=== PATIENT | male | born 1960 | race African-American/Black ===

== ENCOUNTER 2016-09-25 10:05 | Emergency (ER) | payer SELFPAY ==
[2016-09-25 10:10] VITALS: BP 189/107; BMI 29.9
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
[2016-09-25] MEDS ORDERED: TORADOL 60 MG VIAL IM ONE (10:37)
[2016-09-25] MEDS ORDERED: TORADOL 60 MG VIAL ONE (10:51)
== END 2016-09-25 11:00 | disposition home or self-care (01) ==
LOC: ER 10:18
DX: Z04.3 Encounter for examination and observation following other accident (principal); M79.1 Myalgia; V89.2XXA Person injured in unspecified motor-vehicle accident, traffic, initial encounter
CPT/HCPCS: 99281; 99282; J1885

== ENCOUNTER 2017-02-20 08:41 | Emergency (ER) | payer SELFPAY ==
[2017-02-20 08:46] VITALS: BP 160/93; BMI 29.9
--- NOTE | 2017-02-20 09:53 | DR.GENAD ---
HPI - PCP Primary Care Physician: NFD - Complaint/Symptoms Chief Complaint Doctors Comments: Patient reports that he got a foreign body in his left thumb three weeks ago now there is a tender growth at the site. Chief Complaint:: PT. STATES HE WAS MOPPING AND GOT A PIECE OF FIBERGLASS IN HIS LEFT THUMB AND HE SAYS HE THOUGHT HE GOT MOST OF IT OUT. PAIN AND SWELLING NOTED TO LEFT THUMB. - Source History Provided: Patient - Mode of Arrival Mode of Arrival: Ambulatory - Timing Onset of Chief Complaint: 02/19/17 PMH - PMH Past Medical History: Yes Past Medical History: Hypertension Past Medical History Comment: HIV Past Surgical History: No Surgical History: No History - Family History History of Family Medical Conditions: No - Social History Does patient currently use any type of tobacco product: Yes Have you used tobacco products in the last 12 months: Yes Type of Tobacco Use: Cigarettes Does any household member use tobacco: No Alcohol Use: Occasionally Do you use any recreational Drugs:: No Lives With: Alone Lives Where: Home - infectious screening In the last 2 months have you had wt loss of >10#?: NO Have you had fever, night sweats or hemotysis?: No Have you traveled outside the country in the last 6 months?: No Isolation: Standard ROS - Review of Systems Eyes: No Symptoms Reported ENTM: No Symptoms Reported Respiratoy: No Symptoms Reported Cardiovascular: No Symptoms Reported Gastrointestinal/Abdominal: No Symptoms Reported Genitourinary: No Symptoms Reported Neurological: No Symptoms Reported Musculoskeletal: No Symptoms Reported Integumentary: Lesions (left thumb) Hematologic/Lymphatic: No Symptoms Reported Endocrine: No Symptoms Reported Psychiatric: No Symptoms Reported All Other Systems: Reviewed and Negative PE - Vital Signs Vitals: Temperature 98.4 F Pulse Rate 64 Respiratory Rate 16 Blood Pressure 160/93 O2 Sat by Pulse Oximetry 97 - General Limitations: No Limitations - Head Head Exam: Normal Inspection, Atraumatic - Eyes Eye exam: Normal Appearance, PERRL, EOMI - ENT ENT Exam: Normal Exam External Ear Exam: Normal External Inspection TM/Canal Exam: Bilateral Normal Nose Exam: Normal Nose Exam Mouth Exam: Normal Inspection Throat Exam: Tonsillar Erythema - Neck Neck Exam: Normal Inspection, Full ROM - Chest Chest Inspection: Normal Inspection - Respiratory Respiratory Exam: Normal Lung Sounds Bilat Respiratory Exam: Bilateral Clear to Auscultation - Cardiovascular Cardiovascular Exam: Regular Rate - Abdominal Exam Abdominal Exam: Normal Inspection - Extremities Extremities Exam: Normal Inspection, Full ROM, Other (left thumb with granuloma formation) - Back Back Exam: Normal Inspection, Full ROM - Neurologic Neurological Exam: Alert, Oriented X3, CN II-XII Intact - Psychiatric Psychiatric Exam: Normal Affect, Normal Mood - Skin Skin Exam: Warm, Dry Course - Reevaluation 1st: Unchanged - Education/Counseling Education/Counseling: Patient Educated On: Treatment, Prognosis Procedures - Incision and Drainage Site: I&D granuloma w/o expressin of exudate - Diagnosis Discharge Problem: Granuloma due to infection - Discharge Plan Condition: Stable - Follow ups/Referrals Follow ups/Referrals: NFD,None [Primary Care Provider] - 3 days - Instructions
== END 2017-02-20 10:37 | disposition home or self-care (01) ==
LOC: ER 08:53
DX: B99.9 Unspecified infectious disease (principal)
CPT/HCPCS: 99282

== ENCOUNTER → 2017-06-30 | Outpatient (CLI) | payer OTHER ==
--- NOTE | 2017-06-30 11:53 | RAD ---
HISTORY: Low back pain Study: Lumbar spine Comparison: None Findings: Images demonstrate 5 wdy-rbk-yvyapyc lumbar vertebral bodies. Allowing for endplate degenerative gómez ges the lumbar vertebral body heights are relatively maintained. Mild degenerate facet changes are se en within the mid to lower lumbar spine. Mild multilevel osteophytosis is also noted. Portions of the spine are obscured by overlying bowel content. Atherosclerotic changes are seen within the visualize d aorta. If symptoms or clinical concern persist correlation with MRI may be helpful. IMPRESSION: 1. Degenerative changes as noted above. Reported By:
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
== END ==
LOC: RAD 09:27
PROVIDERS: ATTEND Internal Medicine
DX: Z02.71 Encounter for disability determination (principal)
CPT/HCPCS: 72040; 72100

== ENCOUNTER 2021-09-05 08:33 | Observation (INO) ==
[2021-09-05 16:05] VITALS: BMI 25.4
[2021-09-05] MEDS ORDERED: PHENOBARBITAL SODIUM INJ 65 MG VIAL IM PRN (16:31)
[2021-09-05] MEDS ORDERED: MAALOX or MYLANTA PO PRN (16:31)
[2021-09-05] MEDS ORDERED: MILK OF MAGNESIA PO PRN (16:31)
[2021-09-05] MEDS ORDERED: LIBRIUM PO PRN (16:31)
[2021-09-05] MEDS ORDERED: MOTRIN TAB 800 MG PO PRN (16:31)
[2021-09-05] MEDS ORDERED: KAOPECTATE (NEW FORMULA) PO PRN (16:31)
[2021-09-05] MEDS: MAGNESIUM SULFATE 1 GRAM/100 mL PREMIX 1 G/100 ML BAG IV SCH ×2 (17:06→21:30)
[2021-09-05] MEDS: NS 1,000 ML IV 1,000 ML with MVI INJ (ADULT) 10 ML IV SCH ×4 (17:07→23:49)
[2021-09-05] MEDS: THIAMINE HCL INJ IM SCH (17:07)
[2021-09-05] MEDS: PHENOBARBITAL TAB 30 MG (32.4MG) PO SCH ×3 (17:07→21:30)
[2021-09-05 17:13] LABS: BASOPHILS % (AUTO) 0.9 % (0.2-1.0); EOSINOPHILS % (AUTO) 0.6 % (0.9-2.9); HEMATOCRIT 29.7 % (42.0-54.0); HEMOGLOBIN 9.9 g/dL (13.5-18.0); LYMPHOCYTES # (AUTO) 1.9 X10^3/uL (1.3-2.9); LYMPHOCYTES % (AUTO) 44.6 % (21.0-51.0); MEAN CORPUSCULAR HEMOGLOBIN 30.7 pg (27.0-34.0); MEAN CORPUSCULAR HGB CONC 33.2 g/dL (33.0-35.0); MEAN CORPUSCULAR VOLUME 92.5 fL (80.0-100.0); MEAN PLATELET VOLUME 9.3 fL (7.4-11.0); MONOCYTES # (AUTO) 0.6 x10^3/uL (0.3-0.8); MONOCYTES % (AUTO) 14.3 % (0.0-13.0); NEUTROPHILS # (AUTO) 1.7 x10^3/uL (2.2-4.8); NEUTROPHILS % (AUTO) 39.6 % (42.0-75.0); RED BLOOD COUNT 3.21 X10^6/uL (4.7-6.0); RED CELL DISTRIBUTION WIDTH 15.5 % (11.6-16.5); WHITE BLOOD COUNT 4.3 X10^3/uL (3.6-10.0)
[2021-09-05 17:53] LABS: BILIRUBIN,URINE NEGATIVE (NEGATIVE); BLOOD/HEMOGLOBIN,URINE NEGATIVE (NEGATIVE); GLUCOSE, URINE NEGATIVE (NEGATIVE); KETONES,URINE NEGATIVE (NEGATIVE); LEUKOCYTE ESTERASE ,URINE NEGATIVE (NEGATIVE); NITRITES,URINE NEGATIVE (NEGATIVE); PROTEIN,URINE 1+ (NEGATIVE); UROBILINOGEN,URINE 1+ (NORMAL)
[2021-09-05 17:55] LABS: ALANINE AMINOTRANSFERASE 45 Units/L (12-78); ALBUMIN 3.1 g/dL (3.4-5.0); ALKALINE PHOSPHATASE 139 Units/L (46-116); ASPARTATE AMINO TRANSFERASE 80 Units/L (15-37); BLOOD UREA NITROGEN 9 mg/dL (7-18); CALCIUM 9.3 mg/dL (8.5-10.1); CARBON DIOXIDE 26.8 mmol/L (21-32); CHLORIDE 106 mmol/L (98-107); COR NA(FOR HYPERGLY) 144 mmol/L (136-145); CREATININE 0.96 mg/dL (0.70-1.30); SODIUM 143 mmol/L (136-145); TOTAL PROTEIN 7.9 g/dL (6.4-8.2); eGFR NON BLACK RACES > 60 (>60)
[2021-09-05 18:06] LABS: APPEARANCE,URINE CLEAR (CLEAR); COLOR,URINE YELLOW (YELLOW)
[2021-09-05 18:07] LABS: BACTERIA,URINE TRACE /HPF (NEGATIVE); RBC,URINE NONE SEEN /HPF (0-3); SQUAMOUS EPITHELIAL CELL,UR RARE /HPF (NEGATIVE)
[2021-09-05] MEDS: AMBIEN PO SCH (21:30)
[2021-09-05] MEDS ORDERED: POTASSIUM CHL 40 MEQ/NS 0.45% 500 ML IV PRN (23:52)
[2021-09-05] MEDS ORDERED: POTASSIUM CHL 60 MEQ/NS 0.45% 500 ML IV PRN (23:52)
[2021-09-05] MEDS ORDERED: K-DUR TAB 20 MEQ PO PRN (23:52)
[2021-09-05] MEDS ORDERED: MICRO K EXTEN CAP 10 MEQ PO PRN (23:52)
[2021-09-05] MEDS ORDERED: POTASSIUM CHLORIDE LIQ 20 MEQ UDC PO PRN (23:52)
[2021-09-06] MEDS: K-RIDER 10 MEQ/NS 100 ML 10 MEQ/100 ML BAG IV PRN ×4 (00:15→03:50)
[2021-09-06 04:49] LABS: BASOPHILS % (AUTO) 0.5 % (0.2-1.0); EOSINOPHILS % (AUTO) 0.6 % (0.9-2.9); HEMATOCRIT 29.6 % (42.0-54.0); HEMOGLOBIN 9.7 g/dL (13.5-18.0); LYMPHOCYTES # (AUTO) 1.8 X10^3/uL (1.3-2.9); LYMPHOCYTES % (AUTO) 32.6 % (21.0-51.0); MEAN CORPUSCULAR HEMOGLOBIN 30.5 pg (27.0-34.0); MEAN CORPUSCULAR HGB CONC 32.7 g/dL (33.0-35.0); MEAN CORPUSCULAR VOLUME 93.2 fL (80.0-100.0); MONOCYTES # (AUTO) 0.6 x10^3/uL (0.3-0.8); MONOCYTES % (AUTO) 10.5 % (0.0-13.0); NEUTROPHILS # (AUTO) 3.2 x10^3/uL (2.2-4.8); NEUTROPHILS % (AUTO) 55.8 % (42.0-75.0); RED BLOOD COUNT 3.18 X10^6/uL (4.7-6.0); RED CELL DISTRIBUTION WIDTH 15.6 % (11.6-16.5); WHITE BLOOD COUNT 5.7 X10^3/uL (3.6-10.0)
[2021-09-06 05:18] LABS: ALANINE AMINOTRANSFERASE 37 Units/L (12-78); ALBUMIN 2.9 g/dL (3.4-5.0); ALKALINE PHOSPHATASE 137 Units/L (46-116); ASPARTATE AMINO TRANSFERASE 71 Units/L (15-37); BLOOD UREA NITROGEN 9 mg/dL (7-18); CALCIUM 8.6 mg/dL (8.5-10.1); CARBON DIOXIDE 24.9 mmol/L (21-32); CHLORIDE 102 mmol/L (98-107); COR CA(FOR HYPOALB) 9.5 mg/dL (8.5-10.1); SODIUM 137 mmol/L (136-145); TOTAL PROTEIN 7.3 g/dL (6.4-8.2); eGFR NON BLACK RACES > 60 (>60)
[2021-09-06] MEDS: NS 1,000 ML IV 1,000 ML with MVI INJ (ADULT) 10 ML IV SCH ×2 (05:23)
[2021-09-06] MEDS: MAGNESIUM SULFATE 1 GRAM/100 mL PREMIX 1 G/100 ML BAG IV SCH ×9 (05:23→23:00)
[2021-09-06] MEDS ORDERED: TOPROL XL PO SCH (09:00)
[2021-09-06] MEDS: THIAMINE HCL INJ IM SCH (09:42)
[2021-09-06] MEDS: NORVASC TAB 10 MG PO SCH (09:43)
[2021-09-06] MEDS: PHENOBARBITAL TAB 30 MG (32.4MG) PO SCH ×4 (09:43→21:57)
[2021-09-06] MEDS: MVI IV SCH ×9 (09:44→21:58)
[2021-09-06] MEDS: NS IV SCH ×9 (09:44→21:58)
[2021-09-06] MEDS: MAGNESIUM SULFATE IV SCH ×9 (09:44→21:58)
[2021-09-06 15:36] LABS: MAGNESIUM 1.6 mg/dL (1.7-2.9)
[2021-09-06] MEDS: KLOR-CON PO PRN ×2 (16:08→22:10)
--- NOTE | 2021-09-06 21:36 | DR.H&P ---
H&P History & Physical for Day of: H&P Date: 09/05/21 Chief Complaint Chief Complaint: Needs alcohol detox Allergies Allergies Allergy/AdvReac Type Severity Reaction Status Date / Time No Known Drug Allergies Allergy Verified 02/20/17 08:45 History of Present Illness History of Present Illness: This is a pleasant 60-year-old black male well-known to me. He recently came to see me last week and his is interested in having him be admitted to the hospital for alcohol detox. Patient was not ready to do that at that time after the weekend he called me and wanted to come in Friday morning to start the detox treatment. He does report having a long history of alcoholism and is unable to stop on his own. He has been out of work for the last few years and reports that he just sits around home drinking alcohol started early in the morning and through the evening and night. He currently does not report any nausea vomiting or shaking. He reports that years before he attended AA and is interested in restarting it after he gets detoxed from alcohol. Past Medical History Past Medical History: Anxiety, Dyslipidemia and Hypertension Additional Medical History: HIV positive, chronic low back pain and anxiety. Past Surgical History Surgical History: No History Social History Does patient currently use any type of tobacco product: No Have you used tobacco products in the last 12 months: No Does any household member use tobacco: No Alcohol Use: DAILY Drug Use: None Medications Home Medications: No Known Drug Allergies Allergy (Verified 02/20/17 08:45) CONTINUE taking the following medications alprazolam 1 mg PO HS 09/05/21 [History] amlodipine 10 mg PO ONCE 09/05/21 [History] atorvastatin 40 mg PO HS 09/05/21 [History] ktarity-ejn-pijkn-tenof alafen [Genvoya] 1 tab PO DAILY 09/05/21 [History] gabapentin 100 mg PO HS 09/05/21 [History] metoprolol succinate 50 mg PO DAILY 09/05/21 [History] multivitamin [Multi-Vitamin] 1 tab PO DAILY 09/05/21 [History] oxycodone 10 mg PO TID PRN 09/05/21 [History] testosterone 1 pump TRANSDERMAL QAM 09/05/21 [History] tizanidine 4 mg PO TID PRN 09/05/21 [History] Labs Result Diagrams: 09/06/21 04:06 09/06/21 18:50 Labs: Laboratory WBC 5.7 X10^3/uL (3.6-10.0) 09/06/21 04:06 RBC 3.18 X10^6/uL (4.7-6.0) L 09/06/21 04:06 Hgb 9.7 g/dL (13.5-18.0) L 09/06/21 04:06 Hct 29.6 % (42.0-54.0) L 09/06/21 04:06 MCV 93.2 fL (80.0-100.0) 09/06/21 04:06 MCH 30.5 pg (27.0-34.0) 09/06/21 04:06 MCHC 32.7 g/dL (33.0-35.0) L 09/06/21 04:06 RDW 15.6 % (11.6-16.5) 09/06/21 04:06 Plt Count 129 X10^3/uL (150.0-450.0) L 09/06/21 04:06 MPV 10.0 fL (7.4-11.0) 09/06/21 04:06 Neut % (Auto) 55.8 % (42.0-75.0) 09/06/21 04:06 Lymph % (Auto) 32.6 % (21.0-51.0) 09/06/21 04:06 [place] % (Auto) 10.5 % (0.0-13.0) 09/06/21 04:06 Eos % (Auto) 0.6 % (0.9-2.9) L 09/06/21 04:06 Baso % (Auto) 0.5 % (0.2-1.0) 09/06/21 04:06 Neut # (Auto) 3.2 x10^3/uL (2.2-4.8) 09/06/21 04:06 Lymph # (Auto) 1.8 X10^3/uL (1.3-2.9) 09/06/21 04:06 [place] # (Auto) 0.6 x10^3/uL (0.3-0.8) 09/06/21 04:06 Eos # (Auto) 0.0 x10^3/uL (0.0-0.2) 09/06/21 04:06 Baso # (Auto) 0.0 X10^3/uL (0.0-0.1) 09/06/21 04:06 Absolute Nucleated RBC 0.6 /100WBC 09/06/21 04:06 Sodium 137 mmol/L (136-145) 09/06/21 04:06 Corrected Sodium TNP 09/06/21 04:06 Potassium 3.7 mmol/L (3.5-5.1) 09/06/21 18:50 Chloride 102 mmol/L (98-107) 09/06/21 04:06 Carbon Dioxide 24.9 mmol/L (21-32) 09/06/21 04:06 BUN 9 mg/dL (7-18) 09/06/21 04:06 Creatinine 0.90 mg/dL (0.70-1.30) 09/06/21 04:06 Est GFR (MDRD) Af Amer > 60 (>60) 09/06/21 04:06 Est GFR (MDRD) Non-Af > 60 (>60) 09/06/21 04:06 Glucose 96 mg/dL (65-99) 09/06/21 04:06 Calcium 8.6 mg/dL (8.5-10.1) 09/06/21 04:06 Corrected Calcium 9.5 mg/dL (8.5-10.1) 09/06/21 04:06 Magnesium 1.6 mg/dL (1.7-2.9) L 09/06/21 15:15 Total Bilirubin 0.40 mg/dL (0.2-1.0) 09/06/21 04:06 AST 71 Units/L (15-37) H 09/06/21 04:06 ALT 37 Units/L (12-78) 09/06/21 04:06 Alkaline Phosphatase 137 Units/L (46-116) H 09/06/21 04:06 Total Protein 7.3 g/dL (6.4-8.2) 09/06/21 04:06 Albumin 2.9 g/dL (3.4-5.0) L 09/06/21 04:06 Globulin 4.4 g/dL (2.5-4.5) 09/06/21 04:06 Albumin/Globulin Ratio 0.7 Ratio (1.1-2.1) L 09/06/21 04:06 Specimen Type Clean catch urine 09/05/21 17:37 Urine Color Yellow (YELLOW) 09/05/21 17:37 Urine Appearance Clear (CLEAR) 09/05/21 17:37 Urine pH 5.0 (5.0 - 8.0) 09/05/21 17:37 Ur Specific [place] 1.015 (1.000-1.030) 09/05/21 17:37 Urine Protein 1+ (NEGATIVE) 09/05/21 17:37 Urine Glucose (UA) Negative (NEGATIVE) 09/05/21 17:37 Urine Ketones Negative (NEGATIVE) 09/05/21 17:37 Urine Blood Negative (NEGATIVE) 09/05/21 17:37 Urine Nitrite Negative (NEGATIVE) 09/05/21 17:37 Urine Bilirubin Negative (NEGATIVE) 09/05/21 17:37 Urine Urobilinogen 1+ (NORMAL) 09/05/21 17:37 Ur Leukocyte Esterase Negative (NEGATIVE) 09/05/21 17:37 Urine RBC None seen /HPF (0-3) 09/05/21 17:37 Urine WBC 0-2 /HPF (0-5) 09/05/21 17:37 Ur Squamous Epith Cells Rare /HPF (NEGATIVE) 09/05/21 17:37 Urine Bacteria Trace /HPF (NEGATIVE) 09/05/21 17:37 Ur Culture Indicated? No/not indicated 09/05/21 17:37 Urine Opiates Screen Negative (NEG=<300) 09/05/21 16:31 Urine Methadone Screen Negative (NEG=<300) 09/05/21 16:31 Ur Barbiturates Screen Negative (NEG=<200) 09/05/21 16:31 Ur Phencyclidine Scrn Negative (NEG=<25) 09/05/21 16:31 Ur Amphetamines Screen Negative (NEG=<1000) 09/05/21 16:31 U Benzodiazepines Scrn Negative (NEG=<200) 09/05/21 16:31 Urine Cocaine Screen Negative (NEG=<300) 09/05/21 16:31 U Marijuana (THC) Screen Negative (NEG=<50) 09/05/21 16:31 Ethyl Alcohol mg/dL 173 mg/dL (0-19.9) H 09/05/21 17:03 Review of Systems Constitutional: No Symptoms Reported Eyes: No Symptoms Reported ENT: No Symptoms Reported Respiratory: No Symptoms Reported Cardiovascular: No Symptoms Reported Gastrointestinal: No Symptoms Reported Genitourinary: No Symptoms Reported Musculoskeletal: Back Pain Skin: No Symptoms Reported Neurological: No Symptoms Reported Physical Exam Vital Signs: Temperature 99.0 F Pulse Rate [Bilateral Radial] 82 Respiratory Rate 18 Blood Pressure [Left Arm] 180/95 Blood Pressure 155/87 O2 Sat by Pulse Oximetry 97 Oriented: Normal, Time, Person and Place Eyes: Normal Ear: Normal Nose: Normal Throat: Normal Respiratory: Clear Throughout Cardiovascular: Normal : Normal Auscultation: Bowel Sounds: Normal Palpation: Normal Tenderness: Normal Skin: Normal Musculoskeletal: Normal Psychiatric: Depression Mood Description: Depressed and Sad Affect: Quiet Speech Pattern: Clear and Appropriate Assessment/Plan (1) Alcohol use disorder: Status: Acute Plan: I will use the alcohol detox protocol. Check CMP and CBC and magnesium as well. (2) Hypertension: Status: Acute Plan: Resume his metoprolol ER 50 mg daily and monitor blood pressure daily. (3) HIV positive: Status: Acute Review H&P Reviewed: Yes Patient was examined?: Yes
--- NOTE | 2021-09-06 21:38 | PCM.PROG ---
Progress Note Progress Note for Day of Date of Exam: 09/06/21 Subjective Subjective: The patient is lying in bed this morning. He seems to be doing fairly well. He had no problems overnight. He denies nausea or vomiting at this time but it has been noted since yesterday after his labs came back he has been profoundly hypokalemic and hypomagnesemic. He has been getting potassium and magnesium replacement per protocol. He has no new complaints at this time. Blood pressure is also noted to be elevated. Past Medical Family Social History Past Med/Fam/Surg Hx: No changes since H&P Allergies: Allergies No Known Drug Allergies Allergy (Verified 02/20/17 08:45) Review of Systems ROS: No change since H&P Vital Signs and I&O's Vital Signs: Temperature 99.0 F Pulse Rate [Bilateral Radial] 82 Respiratory Rate 18 Blood Pressure [Left Arm] 180/95 Blood Pressure 155/87 O2 Sat by Pulse Oximetry 97 Intake and Output: Intake & Output 09/04/21 09/05/21 09/06/21 09/07/21 11:59 11:59 11:59 11:59 Intake Total 2780 / 2780 840 / 840 Output Total 1000 / 1000 2400 / 2400 Balance 1780 / 1780 -1560 / -1560 Physical Exam Oriented: Normal, Time, Person and Place Eyes: Normal Ear: Normal Nose: Normal Throat: Normal Respiratory: Normal Cardiovascular: Normal : Normal Auscultation: Bowel Sounds: Normal Tenderness: Normal Skin: Normal Musculoskeletal: Normal Psychiatric: Depression Mood Description: Depressed and Sad Affect: Quiet Speech Pattern: Clear and Appropriate Laboratory and Diagnostics Result Diagrams: 09/06/21 04:06 09/06/21 18:50 Labs: Laboratory WBC 5.7 X10^3/uL (3.6-10.0) 09/06/21 04:06 RBC 3.18 X10^6/uL (4.7-6.0) L 09/06/21 04:06 Hgb 9.7 g/dL (13.5-18.0) L 09/06/21 04:06 Hct 29.6 % (42.0-54.0) L 09/06/21 04:06 MCV 93.2 fL (80.0-100.0) 09/06/21 04:06 MCH 30.5 pg (27.0-34.0) 09/06/21 04:06 MCHC 32.7 g/dL (33.0-35.0) L 09/06/21 04:06 RDW 15.6 % (11.6-16.5) 09/06/21 04:06 Plt Count 129 X10^3/uL (150.0-450.0) L 09/06/21 04:06 MPV 10.0 fL (7.4-11.0) 09/06/21 04:06 Neut % (Auto) 55.8 % (42.0-75.0) 09/06/21 04:06 Lymph % (Auto) 32.6 % (21.0-51.0) 09/06/21 04:06 [place] % (Auto) 10.5 % (0.0-13.0) 09/06/21 04:06 Eos % (Auto) 0.6 % (0.9-2.9) L 09/06/21 04:06 Baso % (Auto) 0.5 % (0.2-1.0) 09/06/21 04:06 Neut # (Auto) 3.2 x10^3/uL (2.2-4.8) 09/06/21 04:06 Lymph # (Auto) 1.8 X10^3/uL (1.3-2.9) 09/06/21 04:06 [place] # (Auto) 0.6 x10^3/uL (0.3-0.8) 09/06/21 04:06 Eos # (Auto) 0.0 x10^3/uL (0.0-0.2) 09/06/21 04:06 Baso # (Auto) 0.0 X10^3/uL (0.0-0.1) 09/06/21 04:06 Absolute Nucleated RBC 0.6 /100WBC 09/06/21 04:06 Sodium 137 mmol/L (136-145) 09/06/21 04:06 Corrected Sodium TNP 09/06/21 04:06 Potassium 3.7 mmol/L (3.5-5.1) 09/06/21 18:50 Chloride 102 mmol/L (98-107) 09/06/21 04:06 Carbon Dioxide 24.9 mmol/L (21-32) 09/06/21 04:06 BUN 9 mg/dL (7-18) 09/06/21 04:06 Creatinine 0.90 mg/dL (0.70-1.30) 09/06/21 04:06 Est GFR (MDRD) Af Amer > 60 (>60) 09/06/21 04:06 Est GFR (MDRD) Non-Af > 60 (>60) 09/06/21 04:06 Glucose 96 mg/dL (65-99) 09/06/21 04:06 Calcium 8.6 mg/dL (8.5-10.1) 09/06/21 04:06 Corrected Calcium 9.5 mg/dL (8.5-10.1) 09/06/21 04:06 Magnesium 1.6 mg/dL (1.7-2.9) L 09/06/21 15:15 Total Bilirubin 0.40 mg/dL (0.2-1.0) 09/06/21 04:06 AST 71 Units/L (15-37) H 09/06/21 04:06 ALT 37 Units/L (12-78) 09/06/21 04:06 Alkaline Phosphatase 137 Units/L (46-116) H 09/06/21 04:06 Total Protein 7.3 g/dL (6.4-8.2) 09/06/21 04:06 Albumin 2.9 g/dL (3.4-5.0) L 09/06/21 04:06 Globulin 4.4 g/dL (2.5-4.5) 09/06/21 04:06 Albumin/Globulin Ratio 0.7 Ratio (1.1-2.1) L 09/06/21 04:06 Specimen Type Clean catch urine 09/05/21 17:37 Urine Color Yellow (YELLOW) 09/05/21 17:37 Urine Appearance Clear (CLEAR) 09/05/21 17:37 Urine pH 5.0 (5.0 - 8.0) 09/05/21 17:37 Ur Specific [place] 1.015 (1.000-1.030) 09/05/21 17:37 Urine Protein 1+ (NEGATIVE) 09/05/21 17:37 Urine Glucose (UA) Negative (NEGATIVE) 09/05/21 17:37 Urine Ketones Negative (NEGATIVE) 09/05/21 17:37 Urine Blood Negative (NEGATIVE) 09/05/21 17:37 Urine Nitrite Negative (NEGATIVE) 09/05/21 17:37 Urine Bilirubin Negative (NEGATIVE) 09/05/21 17:37 Urine Urobilinogen 1+ (NORMAL) 09/05/21 17:37 Ur Leukocyte Esterase Negative (NEGATIVE) 09/05/21 17:37 Urine RBC None seen /HPF (0-3) 09/05/21 17:37 Urine WBC 0-2 /HPF (0-5) 09/05/21 17:37 Ur Squamous Epith Cells Rare /HPF (NEGATIVE) 09/05/21 17:37 Urine Bacteria Trace /HPF (NEGATIVE) 09/05/21 17:37 Ur Culture Indicated? No/not indicated 09/05/21 17:37 Urine Opiates Screen Negative (NEG=<300) 09/05/21 16:31 Urine Methadone Screen Negative (NEG=<300) 09/05/21 16:31 Ur Barbiturates Screen Negative (NEG=<200) 09/05/21 16:31 Ur Phencyclidine Scrn Negative (NEG=<25) 09/05/21 16:31 Ur Amphetamines Screen Negative (NEG=<1000) 09/05/21 16:31 U Benzodiazepines Scrn Negative (NEG=<200) 09/05/21 16:31 Urine Cocaine Screen Negative (NEG=<300) 09/05/21 16:31 U Marijuana (THC) Screen Negative (NEG=<50) 09/05/21 16:31 Ethyl Alcohol mg/dL 173 mg/dL (0-19.9) H 09/05/21 17:03 Plan (1) Alcohol use disorder: Status: Acute Plan: I will use the alcohol detox protocol. Check CMP and CBC and magnesium as well. (2) Hypertension: Status: Acute Plan: Resume his metoprolol ER 50 mg daily and monitor blood pressure daily. I am going to restart his amlodipine 10 mg daily today as well. (3) HIV positive: Status: Acute (4) Hypokalemia: Status: Acute Plan: Replaced with potassium replacement protocol. (5) Hypomagnesemia: Status: Acute Plan: Mag sulfate 2 g IV every 2 hours today.
[2021-09-06] MEDS: AMBIEN PO SCH (21:57)
[2021-09-06] MEDS ORDERED: CATAPRES-TTS-2 TD SCH (22:00)
[2021-09-07] MEDS: MAGNESIUM SULFATE 1 GRAM/100 mL PREMIX 1 G/100 ML BAG IV SCH (02:18)
[2021-09-07 05:06] LABS: BASOPHILS % (AUTO) 0.7 % (0.2-1.0); EOSINOPHILS % (AUTO) 0.9 % (0.9-2.9); HEMATOCRIT 31.6 % (42.0-54.0); HEMOGLOBIN 10.5 g/dL (13.5-18.0); LYMPHOCYTES # (AUTO) 1.3 X10^3/uL (1.3-2.9); LYMPHOCYTES % (AUTO) 27.7 % (21.0-51.0); MEAN CORPUSCULAR HEMOGLOBIN 30.9 pg (27.0-34.0); MEAN CORPUSCULAR HGB CONC 33.3 g/dL (33.0-35.0); MEAN CORPUSCULAR VOLUME 92.7 fL (80.0-100.0); MEAN PLATELET VOLUME 9.5 fL (7.4-11.0); MONOCYTES # (AUTO) 0.4 x10^3/uL (0.3-0.8); MONOCYTES % (AUTO) 9.3 % (0.0-13.0); NEUTROPHILS # (AUTO) 2.9 x10^3/uL (2.2-4.8); NEUTROPHILS % (AUTO) 61.4 % (42.0-75.0); RED BLOOD COUNT 3.41 X10^6/uL (4.7-6.0); RED CELL DISTRIBUTION WIDTH 15.1 % (11.6-16.5); WHITE BLOOD COUNT 4.7 X10^3/uL (3.6-10.0)
[2021-09-07] MEDS: NS IV SCH ×19 (05:24→21:09)
[2021-09-07] MEDS: MAGNESIUM SULFATE IV SCH ×3 (05:24)
[2021-09-07] MEDS: MVI IV SCH ×19 (05:24→21:09)
[2021-09-07 05:34] LABS: ALANINE AMINOTRANSFERASE 38 Units/L (12-78); ALBUMIN 3.3 g/dL (3.4-5.0); ALKALINE PHOSPHATASE 127 Units/L (46-116); ASPARTATE AMINO TRANSFERASE 65 Units/L (15-37); BLOOD UREA NITROGEN 6 mg/dL (7-18); CALCIUM 8.5 mg/dL (8.5-10.1); CARBON DIOXIDE 24.1 mmol/L (21-32); CHLORIDE 103 mmol/L (98-107); COR CA(FOR HYPOALB) 9.1 mg/dL (8.5-10.1); CREATININE 0.78 mg/dL (0.70-1.30); MAGNESIUM 1.8 mg/dL (1.7-2.9); SODIUM 138 mmol/L (136-145); TOTAL PROTEIN 8.1 g/dL (6.4-8.2); eGFR NON BLACK RACES > 60 (>60)
[2021-09-07] MEDS: [UNRECOGNIZED DRUG - OTHER] IV SCH ×16 (08:25→21:09)
[2021-09-07] MEDS: PHENOBARBITAL TAB 30 MG (32.4MG) PO SCH ×4 (08:26→21:08)
[2021-09-07] MEDS: NORVASC TAB 10 MG PO SCH (08:26)
[2021-09-07] MEDS: THIAMINE HCL INJ IM SCH (08:27)
[2021-09-07] MEDS: TOPROL XL PO SCH (08:28)
[2021-09-07] MEDS: MAG-OX TAB PO SCH (17:33)
--- NOTE | 2021-09-07 19:59 | PCM.PROG ---
Progress Note Progress Note for Day of Date of Exam: 09/07/21 Subjective Subjective: The patient reports he is doing well this morning. He is still not having any episodes of nausea or vomiting at this time. No acute episodes of detox seen either. He has no new complaints this morning as well. Past Medical Family Social History Past Med/Fam/Surg Hx: No changes since H&P Allergies: Allergies No Known Drug Allergies Allergy (Verified 02/20/17 08:45) Review of Systems ROS: No change since H&P Vital Signs and I&O's Vital Signs: Temperature 97.8 F Pulse Rate [Bilateral Radial] 78 Respiratory Rate 20 Blood Pressure [Left Arm] 114/82 Blood Pressure 155/87 O2 Sat by Pulse Oximetry 98 Intake and Output: Intake & Output 09/05/21 09/06/21 09/07/21 09/08/21 11:59 11:59 11:59 11:59 Intake Total 2780 / 2780 1340 / 1340 490 / 490 Output Total 1000 / 1000 4300 / 4300 700 / 700 Balance 1780 / 1780 -2960 / -2960 -210 / -210 Physical Exam Oriented: Normal, Time, Person and Place Eyes: Normal Ear: Normal Nose: Normal Throat: Normal Respiratory: Normal Cardiovascular: Normal : Normal Auscultation: Bowel Sounds: Normal Tenderness: Normal Skin: Normal Musculoskeletal: Normal Psychiatric: Depression Mood Description: Depressed and Sad Affect: Quiet Speech Pattern: Clear and Appropriate Laboratory and Diagnostics Result Diagrams: 09/07/21 04:30 09/07/21 04:30 Labs: Laboratory WBC 4.7 X10^3/uL (3.6-10.0) 09/07/21 04:30 RBC 3.41 X10^6/uL (4.7-6.0) L 09/07/21 04:30 Hgb 10.5 g/dL (13.5-18.0) L 09/07/21 04:30 Hct 31.6 % (42.0-54.0) L 09/07/21 04:30 MCV 92.7 fL (80.0-100.0) 09/07/21 04:30 MCH 30.9 pg (27.0-34.0) 09/07/21 04:30 MCHC 33.3 g/dL (33.0-35.0) 09/07/21 04:30 RDW 15.1 % (11.6-16.5) 09/07/21 04:30 Plt Count 124 X10^3/uL (150.0-450.0) L 09/07/21 04:30 MPV 9.5 fL (7.4-11.0) 09/07/21 04:30 Neut % (Auto) 61.4 % (42.0-75.0) 09/07/21 04:30 Lymph % (Auto) 27.7 % (21.0-51.0) 09/07/21 04:30 [place] % (Auto) 9.3 % (0.0-13.0) 09/07/21 04:30 Eos % (Auto) 0.9 % (0.9-2.9) 09/07/21 04:30 Baso % (Auto) 0.7 % (0.2-1.0) 09/07/21 04:30 Neut # (Auto) 2.9 x10^3/uL (2.2-4.8) 09/07/21 04:30 Lymph # (Auto) 1.3 X10^3/uL (1.3-2.9) 09/07/21 04:30 [place] # (Auto) 0.4 x10^3/uL (0.3-0.8) 09/07/21 04:30 Eos # (Auto) 0.0 x10^3/uL (0.0-0.2) 09/07/21 04:30 Baso # (Auto) 0.0 X10^3/uL (0.0-0.1) 09/07/21 04:30 Absolute Nucleated RBC 0.6 /100WBC 09/07/21 04:30 Sodium 138 mmol/L (136-145) 09/07/21 04:30 Corrected Sodium TNP 09/07/21 04:30 Potassium 3.5 mmol/L (3.5-5.1) 09/07/21 04:30 Chloride 103 mmol/L (98-107) 09/07/21 04:30 Carbon Dioxide 24.1 mmol/L (21-32) 09/07/21 04:30 BUN 6 mg/dL (7-18) L 09/07/21 04:30 Creatinine 0.78 mg/dL (0.70-1.30) 09/07/21 04:30 Est GFR (MDRD) Af Amer > 60 (>60) 09/07/21 04:30 Est GFR (MDRD) Non-Af > 60 (>60) 09/07/21 04:30 Glucose 101 mg/dL (65-99) H 09/07/21 04:30 Calcium 8.5 mg/dL (8.5-10.1) 09/07/21 04:30 Corrected Calcium 9.1 mg/dL (8.5-10.1) 09/07/21 04:30 Magnesium 1.8 mg/dL (1.7-2.9) 09/07/21 04:30 Total Bilirubin 0.50 mg/dL (0.2-1.0) 09/07/21 04:30 AST 65 Units/L (15-37) H 09/07/21 04:30 ALT 38 Units/L (12-78) 09/07/21 04:30 Alkaline Phosphatase 127 Units/L (46-116) H 09/07/21 04:30 Total Protein 8.1 g/dL (6.4-8.2) 09/07/21 04:30 Albumin 3.3 g/dL (3.4-5.0) L 09/07/21 04:30 Globulin 4.8 g/dL (2.5-4.5) H 09/07/21 04:30 Albumin/Globulin Ratio 0.7 Ratio (1.1-2.1) L 09/07/21 04:30 Specimen Type Clean catch urine 09/05/21 17:37 Urine Color Yellow (YELLOW) 09/05/21 17:37 Urine Appearance Clear (CLEAR) 09/05/21 17:37 Urine pH 5.0 (5.0 - 8.0) 09/05/21 17:37 Ur Specific [place] 1.015 (1.000-1.030) 09/05/21 17:37 Urine Protein 1+ (NEGATIVE) 09/05/21 17:37 Urine Glucose (UA) Negative (NEGATIVE) 09/05/21 17:37 Urine Ketones Negative (NEGATIVE) 09/05/21 17:37 Urine Blood Negative (NEGATIVE) 09/05/21 17:37 Urine Nitrite Negative (NEGATIVE) 09/05/21 17:37 Urine Bilirubin Negative (NEGATIVE) 09/05/21 17:37 Urine Urobilinogen 1+ (NORMAL) 09/05/21 17:37 Ur Leukocyte Esterase Negative (NEGATIVE) 09/05/21 17:37 Urine RBC None seen /HPF (0-3) 09/05/21 17:37 Urine WBC 0-2 /HPF (0-5) 09/05/21 17:37 Ur Squamous Epith Cells Rare /HPF (NEGATIVE) 09/05/21 17:37 Urine Bacteria Trace /HPF (NEGATIVE) 09/05/21 17:37 Ur Culture Indicated? No/not indicated 09/05/21 17:37 Urine Opiates Screen Negative (NEG=<300) 09/05/21 16: Urine Methadone Screen Negative (NEG=<300) 09/05/21 16: Ur Barbiturates Screen Negative (NEG=<200) 09/05/21 16:31 Ur Phencyclidine Scrn Negative (NEG=<25) 09/05/21 16:31 Ur Amphetamines Screen Negative (NEG=<1000) 09/05/21 16:31 U Benzodiazepines Scrn Negative (NEG=<200) 09/05/21 16:31 Urine Cocaine Screen Negative (NEG=<300) 09/05/21 16:31 U Marijuana (THC) Screen Negative (NEG=<50) 09/05/21 16:31 Ethyl Alcohol mg/dL 173 mg/dL (0-19.9) H 09/05/21 17:03 Plan (1) Alcohol use disorder: Status: Acute Plan: Continue alcohol detox protocol. Possible discharge home in the next 1 to 2 days. (2) Hypertension: Status: Acute Narrative Support Text: Blood pressure is stable this afternoon at this time. Plan: Catapres patch 0.2 mg weekly was added yesterday and his metoprolol extended release was increased to 100 mg daily. (3) HIV positive: Status: Acute Plan: Patient is due Genoya was resumed yesterday. (4) Hypokalemia: Status: Acute Narrative Support Text: Hypokalemia has resolved this morning. Plan: Replaced with potassium replacement protocol. (5) Hypomagnesemia: Status: Acute Narrative Support Text: The patient's hypomagnesemia has resolved this morning as well. Plan: I will start the patient on magnesium oxide 400 mg twice daily.
[2021-09-07] MEDS: AMBIEN PO SCH (21:08)
[2021-09-08 05:50] LABS: ALANINE AMINOTRANSFERASE 37 Units/L (12-78); ALKALINE PHOSPHATASE 131 Units/L (46-116); ASPARTATE AMINO TRANSFERASE 54 Units/L (15-37); BLOOD UREA NITROGEN 8 mg/dL (7-18); CALCIUM 8.5 mg/dL (8.5-10.1); CARBON DIOXIDE 24.6 mmol/L (21-32); CHLORIDE 105 mmol/L (98-107); COR CA(FOR HYPOALB) 9.3 mg/dL (8.5-10.1); CREATININE 0.78 mg/dL (0.70-1.30); MAGNESIUM 1.7 mg/dL (1.7-2.9); SODIUM 138 mmol/L (136-145); TOTAL PROTEIN 7.8 g/dL (6.4-8.2); eGFR NON BLACK RACES > 60 (>60)
[2021-09-08 05:56] LABS: BASOPHILS % (AUTO) 0.5 % (0.2-1.0); EOSINOPHILS # (AUTO) 0.1 x10^3/uL (0.0-0.2); EOSINOPHILS % (AUTO) 1.1 % (0.9-2.9); HEMATOCRIT 31.6 % (42.0-54.0); HEMOGLOBIN 10.3 g/dL (13.5-18.0); LYMPHOCYTES # (AUTO) 1.4 X10^3/uL (1.3-2.9); LYMPHOCYTES % (AUTO) 28.3 % (21.0-51.0); MEAN CORPUSCULAR HEMOGLOBIN 30.7 pg (27.0-34.0); MEAN CORPUSCULAR HGB CONC 32.5 g/dL (33.0-35.0); MEAN CORPUSCULAR VOLUME 94.4 fL (80.0-100.0); MEAN PLATELET VOLUME 10.9 fL (7.4-11.0); MONOCYTES # (AUTO) 0.4 x10^3/uL (0.3-0.8); MONOCYTES % (AUTO) 8.5 % (0.0-13.0); NEUTROPHILS % (AUTO) 61.6 % (42.0-75.0); RED BLOOD COUNT 3.35 X10^6/uL (4.7-6.0); RED CELL DISTRIBUTION WIDTH 15.4 % (11.6-16.5); WHITE BLOOD COUNT 4.8 X10^3/uL (3.6-10.0)
[2021-09-08] MEDS: NS IV SCH ×16 (06:05→17:29)
[2021-09-08] MEDS: [UNRECOGNIZED DRUG - OTHER] IV SCH ×16 (06:05→17:29)
[2021-09-08] MEDS: MVI IV SCH ×16 (06:05→17:29)
[2021-09-08] MEDS: MAG-OX TAB PO SCH ×2 (06:06→17:07)
[2021-09-08] MEDS: PHENOBARBITAL TAB 30 MG (32.4MG) PO SCH ×5 (08:10→20:23)
[2021-09-08] MEDS: NORVASC TAB 10 MG PO SCH (08:10)
[2021-09-08] MEDS: THIAMINE HCL INJ IM SCH (08:11)
[2021-09-08] MEDS: TOPROL XL PO SCH (08:14)
[2021-09-09] MEDS: [UNRECOGNIZED DRUG - OTHER] IV SCH ×8 (00:59→10:32)
[2021-09-09] MEDS: MVI IV SCH ×8 (00:59→10:32)
[2021-09-09] MEDS: NS IV SCH ×8 (00:59→10:32)
[2021-09-09 05:30] LABS: BASOPHILS % (AUTO) 0.6 % (0.2-1.0); EOSINOPHILS % (AUTO) 1.1 % (0.9-2.9); HEMATOCRIT 30.5 % (42.0-54.0); HEMOGLOBIN 9.9 g/dL (13.5-18.0); LYMPHOCYTES # (AUTO) 1.3 X10^3/uL (1.3-2.9); LYMPHOCYTES % (AUTO) 29.4 % (21.0-51.0); MEAN CORPUSCULAR HEMOGLOBIN 30.4 pg (27.0-34.0); MEAN CORPUSCULAR HGB CONC 32.6 g/dL (33.0-35.0); MEAN CORPUSCULAR VOLUME 93.2 fL (80.0-100.0); MONOCYTES # (AUTO) 0.5 x10^3/uL (0.3-0.8); NEUTROPHILS # (AUTO) 2.5 x10^3/uL (2.2-4.8); NEUTROPHILS % (AUTO) 57.9 % (42.0-75.0); RED BLOOD COUNT 3.27 X10^6/uL (4.7-6.0); RED CELL DISTRIBUTION WIDTH 15.3 % (11.6-16.5); WHITE BLOOD COUNT 4.4 X10^3/uL (3.6-10.0)
[2021-09-09 05:38] LABS: ALANINE AMINOTRANSFERASE 35 Units/L (12-78); ALKALINE PHOSPHATASE 132 Units/L (46-116); ASPARTATE AMINO TRANSFERASE 46 Units/L (15-37); BLOOD UREA NITROGEN 7 mg/dL (7-18); CALCIUM 8.7 mg/dL (8.5-10.1); CARBON DIOXIDE 24.8 mmol/L (21-32); CHLORIDE 105 mmol/L (98-107); COR CA(FOR HYPOALB) 9.5 mg/dL (8.5-10.1); CREATININE 0.86 mg/dL (0.70-1.30); MAGNESIUM 1.5 mg/dL (1.7-2.9); SODIUM 136 mmol/L (136-145); TOTAL PROTEIN 7.6 g/dL (6.4-8.2); eGFR NON BLACK RACES > 60 (>60)
[2021-09-09] MEDS: MAG-OX TAB PO SCH (08:54)
[2021-09-09] MEDS: NORVASC TAB 10 MG PO SCH (08:54)
[2021-09-09] MEDS: TOPROL XL PO SCH (08:54)
[2021-09-09] MEDS: PHENOBARBITAL TAB 30 MG (32.4MG) PO SCH (08:55)
[2021-09-09 09:50] VITALS: BP 150/89
== END 2021-09-09 10:40 | disposition home or self-care (01) ==
LOC: MED/SURG
PROVIDERS: ADMIT Family Medicine; ATTEND Family Medicine

== ENCOUNTER 2022-01-15 10:18 | Observation (INO) ==
[2022-01-15] MEDS ORDERED: PHENOBARBITAL SODIUM INJ 65 MG VIAL IM PRN (12:24)
[2022-01-15] MEDS ORDERED: MILK OF MAGNESIA PO PRN (12:24)
[2022-01-15] MEDS ORDERED: PHENOBARBITAL TAB 15 MG (16.2MG) PO SCH (12:24)
[2022-01-15] MEDS ORDERED: MAALOX or MYLANTA PO PRN (12:24)
[2022-01-15] MEDS ORDERED: MOTRIN TAB 800 MG PO PRN (12:24)
[2022-01-15] MEDS ORDERED: KAOPECTATE (NEW FORMULA) PO PRN (12:24)
[2022-01-15] MEDS ORDERED: LIBRIUM PO PRN (12:24)
[2022-01-15] MEDS ORDERED: MAGNESIUM SULFATE 1 GRAM/100 mL PREMIX 1 G/100 ML BAG IV SCH (12:24)
[2022-01-15] MEDS ORDERED: PHENOBARBITAL TAB 30 MG (32.4MG) PO SCH (12:24)
[2022-01-15] MEDS ORDERED: THIAMINE HCL INJ IM SCH (12:24)
[2022-01-15 12:48] LABS: BASOPHILS # (AUTO) 0.1 X10^3/uL (0.0-0.1); BASOPHILS % (AUTO) 1.1 % (0.2-1.0); EOSINOPHILS % (AUTO) 0.5 % (0.9-2.9); HEMATOCRIT 30.7 % (42.0-54.0); HEMOGLOBIN 10.1 g/dL (13.5-18.0); LYMPHOCYTES # (AUTO) 1.4 X10^3/uL (1.3-2.9); LYMPHOCYTES % (AUTO) 28.4 % (21.0-51.0); MEAN CORPUSCULAR HEMOGLOBIN 31.8 pg (27.0-34.0); MEAN CORPUSCULAR VOLUME 96.4 fL (80.0-100.0); MEAN PLATELET VOLUME 9.8 fL (7.4-11.0); MONOCYTES # (AUTO) 0.7 x10^3/uL (0.3-0.8); NEUTROPHILS # (AUTO) 2.7 x10^3/uL (2.2-4.8); RED BLOOD COUNT 3.18 X10^6/uL (4.7-6.0); RED CELL DISTRIBUTION WIDTH 16.4 % (11.6-16.5); WHITE BLOOD COUNT 4.9 X10^3/uL (3.6-10.0)
[2022-01-15 13:00] VITALS: BMI 25.0
--- NOTE | 2022-01-15 13:07 | DR.H&P ---
H&P History & Physical for Day of: H&P Date: 01/15/22 Chief Complaint Chief Complaint: Alcohol detox Allergies Allergies Allergy/AdvReac Type Severity Reaction Status Date / Time No Known Drug Allergies Allergy Verified 02/20/17 08:45 History of Present Illness History of Present Illness: This is a 61-year-old black male well-known to me. He has a long history of alcohol use disorder with prior attempts to help him abstain from alcohol. Last time he was in the hospital nothing after 3 days he checked himself out AMA. He currently wakes up in the morning has a shot of liquor and drinks beer through the day. He does not know the total number of beers he drinks daily or amount of liquor. He has been trying to get over here to the hospital for the last 3 weeks to get admitted for detox and finally he was able to get here today. We will check routine labs on him today including a CMP, CBC, Vitamin B12 and folate levels. We will start him on the alcohol detox protocol. Past Medical History Past Medical History: Anxiety, Dyslipidemia and Hypertension Additional Medical History: HIV positive, chronic low back pain and anxiety. Past Surgical History Surgical History: No History Family History Family Medical History: Hypertension Social History Does patient currently use any type of tobacco product: No Have you used tobacco products in the last 12 months: No Does any household member use tobacco: No Alcohol Use: Heavy Drug Use: None Medications Home Medications: No Known Drug Allergies Allergy (Verified 02/20/17 08:45) CONTINUE taking the following medications elviteg 150 mg-cob 150 mg-emtricit 200 mg-tenofo alafenam 10 mg tablet (Genvoya) 150 tab PO QDAY 01/15/22 [History] gabapentin 100 mg capsule 1 cap PO QDAY 01/15/22 [History] oxycodone 10 mg tablet 1 tab PO TID PRN 01/15/22 [History] tizanidine 4 mg tablet 1 tab PO TID PRN 01/15/22 [History] Labs Result Diagrams: 01/16/22 04:30 01/16/22 09:40 Labs: Laboratory WBC 4.9 X10^3/uL (3.6-10.0) 01/15/22 12:35 RBC 3.18 X10^6/uL (4.7-6.0) L 01/15/22 12:35 Hgb 10.1 g/dL (13.5-18.0) L 01/15/22 12:35 Hct 30.7 % (42.0-54.0) L 01/15/22 12:35 MCV 96.4 fL (80.0-100.0) 01/15/22 12:35 MCH 31.8 pg (27.0-34.0) 01/15/22 12:35 MCHC 33.0 g/dL (33.0-35.0) 01/15/22 12:35 RDW 16.4 % (11.6-16.5) 01/15/22 12:35 Plt Count 130 X10^3/uL (150.0-450.0) L 01/15/22 12:35 MPV 9.8 fL (7.4-11.0) 01/15/22 12:35 Neut % (Auto) 56.0 % (42.0-75.0) 01/15/22 12:35 Lymph % (Auto) 28.4 % (21.0-51.0) 01/15/22 12:35 [place] % (Auto) 14.0 % (0.0-13.0) H 01/15/22 12:35 Eos % (Auto) 0.5 % (0.9-2.9) L 01/15/22 12:35 Baso % (Auto) 1.1 % (0.2-1.0) H 01/15/22 12:35 Neut # (Auto) 2.7 x10^3/uL (2.2-4.8) 01/15/22 12:35 Lymph # (Auto) 1.4 X10^3/uL (1.3-2.9) 01/15/22 12:35 [place] # (Auto) 0.7 x10^3/uL (0.3-0.8) 01/15/22 12:35 Eos # (Auto) 0.0 x10^3/uL (0.0-0.2) 01/15/22 12:35 Baso # (Auto) 0.1 X10^3/uL (0.0-0.1) 01/15/22 12:35 Absolute Nucleated RBC 1.6 /100WBC 01/15/22 12:35 Ethyl Alcohol mg/dL < 3 mg/dL (0-19.9) 01/15/22 12:35 Review of Systems Constitutional: No Symptoms Reported Eyes: No Symptoms Reported ENT: No Symptoms Reported Respiratory: No Symptoms Reported Cardiovascular: No Symptoms Reported Gastrointestinal: No Symptoms Reported Genitourinary: No Symptoms Reported Musculoskeletal: No Symptoms Reported Skin: No Symptoms Reported Neurological: No Symptoms Reported Physical Exam Vital Signs: Blood Pressure [Left Arm] 150/89 Oriented: Normal Eyes: Normal Ear: Normal Nose: Normal Throat: Normal Respiratory: Clear Throughout Cardiovascular: Normal : Normal Auscultation: Bowel Sounds: Normal Palpation: Normal Tenderness: Normal Skin: Normal Musculoskeletal: Normal Psychiatric: Normal Mood Description: Calm Affect: Normal Speech Pattern: Clear and Appropriate Assessment/Plan (1) Alcohol use disorder: Status: Acute Plan: Start detox protocol and I will give the patient a banana bag for vitamin replacement. (2) Hypertension: Status: Acute Plan: Monitor blood pressure. (3) HIV positive: Status: Acute Plan: Continue Genoya (4) Degenerative disc disease, lumbar: Status: Acute Plan: Pain control if needed Review H&P Reviewed: Yes Patient was examined?: Yes
[2022-01-15] MEDS ORDERED: ROXICODONE TAB 5 MG PO PRN (13:26)
[2022-01-15 13:28] LABS: ALANINE AMINOTRANSFERASE 51 Units/L (12-78); ALBUMIN 3.6 g/dL (3.4-5.0); ALKALINE PHOSPHATASE 104 Units/L (46-116); ASPARTATE AMINO TRANSFERASE 80 Units/L (15-37); BLOOD UREA NITROGEN 8 mg/dL (7-18); CALCIUM 8.9 mg/dL (8.5-10.1); CARBON DIOXIDE 28.1 mmol/L (21-32); CHLORIDE 100 mmol/L (98-107); COR NA(FOR HYPERGLY) 138 mmol/L (136-145); CREATININE 1.28 mg/dL (0.70-1.30); SODIUM 138 mmol/L (136-145); TOTAL PROTEIN 8.4 g/dL (6.4-8.2); eGFR NON BLACK RACES > 60 (>60)
[2022-01-15] MEDS ORDERED: MAGNESIUM SULFATE 50% INJ VIAL ONE (13:44)
[2022-01-15] MEDS: MVI IV SCH ×8 (14:16→21:32)
[2022-01-15] MEDS: [UNRECOGNIZED DRUG - OTHER] IV SCH ×8 (14:16→21:32)
[2022-01-15] MEDS: NS IV SCH ×8 (14:16→21:32)
[2022-01-15] MEDS: MAGNESIUM SULFATE IV SCH ×8 (14:16→21:32)
[2022-01-15] MEDS: NEURONTIN CAP 100 MG PO SCH (14:17)
[2022-01-15] MEDS: PROTONIX TAB 40 MG PO SCH (14:17)
--- NOTE | 2022-01-15 15:39 | RAD ---
HISTORYALCOHOL ABUSESTUDYCHEST, PA/LAT ADULTCOMPARISONNone availableTECHNIQUEPA and lateral projections, 2 imagesFINDINGSCardiac silhouette is normal in size and configuration.Pulmonary vascular sizes are normal.No effusion.No focal airspace disease.No pneumothorax.No acute osseous abnormalityIMPRESSIONNo imaging findings of acute cardiopulmonary disease.Electronically signed by: Romeo Lay (Jan 15, 2022 15:38:01)
[2022-01-15] MEDS ORDERED: VITAMIN B-12 INJ IM ONE (17:00)
[2022-01-15] MEDS: PHENOBARBITAL TAB 30 MG (32.4MG) PO SCH ×2 (17:14→21:32)
[2022-01-15] MEDS: AMBIEN PO SCH (21:32)
[2022-01-16] MEDS: MAGNESIUM SULFATE IV SCH ×12 (04:00→21:06)
[2022-01-16] MEDS: NS IV SCH ×12 (04:00→21:06)
[2022-01-16] MEDS: [UNRECOGNIZED DRUG - OTHER] IV SCH ×12 (04:00→21:06)
[2022-01-16] MEDS: MVI IV SCH ×12 (04:00→21:06)
[2022-01-16] MEDS ORDERED: K-RIDER 10 MEQ/NS 100 ML 10 MEQ/100 ML BAG IV PRN (04:52)
[2022-01-16] MEDS ORDERED: K-DUR TAB 20 MEQ PO PRN (04:52)
[2022-01-16] MEDS ORDERED: POTASSIUM CHL 40 MEQ/NS 0.45% 500 ML IV PRN (04:52)
[2022-01-16] MEDS ORDERED: KLOR-CON PO PRN (04:52)
[2022-01-16] MEDS ORDERED: POTASSIUM CHLORIDE LIQ 20 MEQ UDC PO PRN (04:52)
[2022-01-16] MEDS ORDERED: MICRO K EXTEN CAP 10 MEQ PO PRN (04:52)
[2022-01-16] MEDS ORDERED: POTASSIUM CHL 60 MEQ/NS 0.45% 500 ML IV PRN (04:52)
[2022-01-16 05:16] LABS: BASOPHILS % (AUTO) 0.4 % (0.2-1.0); EOSINOPHILS % (AUTO) 0.9 % (0.9-2.9); HEMATOCRIT 27.3 % (42.0-54.0); HEMOGLOBIN 9.2 g/dL (13.5-18.0); LYMPHOCYTES # (AUTO) 1.6 X10^3/uL (1.3-2.9); MEAN CORPUSCULAR HEMOGLOBIN 32.3 pg (27.0-34.0); MEAN CORPUSCULAR HGB CONC 33.7 g/dL (33.0-35.0); MEAN CORPUSCULAR VOLUME 95.7 fL (80.0-100.0); MEAN PLATELET VOLUME 10.2 fL (7.4-11.0); MONOCYTES # (AUTO) 0.5 x10^3/uL (0.3-0.8); MONOCYTES % (AUTO) 12.5 % (0.0-13.0); NEUTROPHILS # (AUTO) 1.7 x10^3/uL (2.2-4.8); NEUTROPHILS % (AUTO) 44.2 % (42.0-75.0); RED BLOOD COUNT 2.85 X10^6/uL (4.7-6.0); RED CELL DISTRIBUTION WIDTH 16.3 % (11.6-16.5); WHITE BLOOD COUNT 3.8 X10^3/uL (3.6-10.0)
[2022-01-16 05:26] LABS: ALANINE AMINOTRANSFERASE 37 Units/L (12-78); ALBUMIN 3.1 g/dL (3.4-5.0); ALKALINE PHOSPHATASE 97 Units/L (46-116); ASPARTATE AMINO TRANSFERASE 55 Units/L (15-37); BLOOD UREA NITROGEN 8 mg/dL (7-18); CALCIUM 7.7 mg/dL (8.5-10.1); CARBON DIOXIDE 27.5 mmol/L (21-32); CHLORIDE 101 mmol/L (98-107); COR CA(FOR HYPOALB) 8.4 mg/dL (8.5-10.1); CREATININE 0.93 mg/dL (0.70-1.30); MAGNESIUM 0.9 mg/dL (1.7-2.9); SODIUM 135 mmol/L (136-145); TOTAL PROTEIN 7.3 g/dL (6.4-8.2); eGFR NON BLACK RACES > 60 (>60)
[2022-01-16 05:51] LABS: BAND NEUTROPHILS % 2 % (0-10); HYPOCHROMASIA 1+; PLATELET MORPHOLOGY COMMENT NORMAL (NORMAL); TARGET CELLS PRESENT
[2022-01-16] MEDS ORDERED: COZAAR PO SCH (09:00)
[2022-01-16] MEDS: PHENOBARBITAL TAB 30 MG (32.4MG) PO SCH ×4 (09:02→21:08)
[2022-01-16] MEDS: PROTONIX TAB 40 MG PO SCH (09:03)
[2022-01-16] MEDS: NEURONTIN CAP 100 MG PO SCH (09:03)
[2022-01-16] MEDS: MAGNESIUM SULFATE 1 GRAM/100 mL PREMIX 1 G/100 ML BAG IV PRN ×4 (09:05→16:41)
--- NOTE | 2022-01-16 10:27 | PCM.PROG ---
Progress Note Progress Note for Day of Date of Exam: 01/16/22 Subjective Subjective: Patient is resting comfortably in bed this morning. He has had no problems since admission yesterday and no problems overnight. He seems comfortable and is not having any visible DTs at this time. It is noted that his blood pressure has been running high through the night and is high again this morning at 168/80. Heart rate is 82. He does have a history of hypertension but I do not see where he has been taking any of his blood pressure medicine. I will go ahead and start him on losartan 50 mg daily today. Also noted that he has anemic after his CBC was done yesterday he also has some thrombocytopenia which I have also noticed that in the past. I will plan on checking an anemia profile on him today. Past Medical Family Social History Allergies: Allergies No Known Drug Allergies Allergy (Verified 02/20/17 08:45) Review of Systems ROS: No change since H&P Vital Signs and I&O's Vital Signs: Temperature 98.8 F Pulse Rate [Right Brachial] 82 Respiratory Rate 18 Blood Pressure [Right Arm] 182/87 Blood Pressure [Left Arm] 168/80 O2 Sat by Pulse Oximetry 97 Intake and Output: Intake & Output 01/13/22 01/14/22 01/15/22 01/16/22 11:59 11:59 11:59 11:59 Intake Total 1050 / 1050 Balance 1050 / 1050 Physical Exam Oriented: Normal Eyes: Normal Ear: Normal Nose: Normal Throat: Normal Respiratory: Normal Cardiovascular: Normal : Normal Auscultation: Bowel Sounds: Normal Tenderness: Normal Skin: Normal Musculoskeletal: Normal Psychiatric: Normal Mood Description: Calm Affect: Normal Speech Pattern: Clear and Appropriate Laboratory and Diagnostics Result Diagrams: 01/16/22 04:30 01/16/22 09:40 Labs: Laboratory WBC 3.8 X10^3/uL (3.6-10.0) 01/16/22 04:30 RBC 2.85 X10^6/uL (4.7-6.0) L 01/16/22 04:30 Hgb 9.2 g/dL (13.5-18.0) L 01/16/22 04:30 Hct 27.3 % (42.0-54.0) L 01/16/22 04:30 MCV 95.7 fL (80.0-100.0) 01/16/22 04:30 MCH 32.3 pg (27.0-34.0) 01/16/22 04:30 MCHC 33.7 g/dL (33.0-35.0) 01/16/22 04:30 RDW 16.3 % (11.6-16.5) 01/16/22 04:30 Plt Count 110 X10^3/uL (150.0-450.0) L 01/16/22 04:30 Plt Count Comment Decreased (ADEQUATE) 01/16/22 04:30 MPV 10.2 fL (7.4-11.0) 01/16/22 04:30 Neut % (Auto) 44.2 % (42.0-75.0) 01/16/22 04:30 Lymph % (Auto) 42.0 % (21.0-51.0) 01/16/22 04:30 [place] % (Auto) 12.5 % (0.0-13.0) 01/16/22 04:30 Eos % (Auto) 0.9 % (0.9-2.9) 01/16/22 04:30 Baso % (Auto) 0.4 % (0.2-1.0) 01/16/22 04:30 Neut # (Auto) 1.7 x10^3/uL (2.2-4.8) L 01/16/22 04:30 Lymph # (Auto) 1.6 X10^3/uL (1.3-2.9) 01/16/22 04:30 [place] # (Auto) 0.5 x10^3/uL (0.3-0.8) 01/16/22 04:30 Eos # (Auto) 0.0 x10^3/uL (0.0-0.2) 01/16/22 04:30 Baso # (Auto) 0.0 X10^3/uL (0.0-0.1) 01/16/22 04:30 Absolute Nucleated RBC 1.0 /100WBC 01/16/22 04:30 Total Counted 100 01/16/22 04:30 Neutrophils % (Manual) 42 % (39-76) 01/16/22 04:30 Band Neutrophils % 2 % (0-10) 01/16/22 04:30 Lymphocytes % (Manual) 45 % (13-43) H 01/16/22 04:30 Monocytes % (Manual) 10 % (4-9) H 01/16/22 04:30 Eosinophils % (Manual) 1 % (0-6) 01/16/22 04:30 Atypical Lymphocytes Few 01/16/22 04:30 Plt Morphology Comment Normal (NORMAL) 01/16/22 04:30 RBC Morphology Abnormal (NORMAL) 01/16/22 04:30 Hypochromasia 1+ A 01/16/22 04:30 Target Cells Present 01/16/22 04:30 Sodium 135 mmol/L (136-145) L 01/16/22 04:30 Corrected Sodium TNP 01/16/22 04:30 Potassium 3.8 mmol/L (3.5-5.1) 01/16/22 09:40 Chloride 101 mmol/L (98-107) 01/16/22 04:30 Carbon Dioxide 27.5 mmol/L (21-32) 01/16/22 04:30 BUN 8 mg/dL (7-18) 01/16/22 04:30 Creatinine 0.93 mg/dL (0.70-1.30) 01/16/22 04:30 Est GFR (MDRD) Af Amer > 60 (>60) 01/16/22 04:30 Est GFR (MDRD) Non-Af > 60 (>60) 01/16/22 04:30 Glucose 98 mg/dL (65-99) 01/16/22 04:30 Calcium 7.7 mg/dL (8.5-10.1) L 01/16/22 04:30 Corrected Calcium 8.4 mg/dL (8.5-10.1) L 01/16/22 04:30 Magnesium 0.9 mg/dL (1.7-2.9) L 01/16/22 04:30 Total Bilirubin 0.70 mg/dL (0.2-1.0) 01/16/22 04:30 AST 55 Units/L (15-37) H 01/16/22 04:30 ALT 37 Units/L (12-78) 01/16/22 04:30 Alkaline Phosphatase 97 Units/L (46-116) 01/16/22 04:30 Total Protein 7.3 g/dL (6.4-8.2) 01/16/22 04:30 Albumin 3.1 g/dL (3.4-5.0) L 01/16/22 04:30 Globulin 4.2 g/dL (2.5-4.5) 01/16/22 04:30 Albumin/Globulin Ratio 0.7 Ratio (1.1-2.1) L 01/16/22 04:30 Vitamin B12 365 pg/mL (193-986) 01/15/22 12:40 Folate 12.4 ng/mL (>8.6) 01/15/22 12:40 Ethyl Alcohol mg/dL < 3 mg/dL (0-19.9) 01/15/22 12:35 SARS-CoV-2 (PCR) Negative (NEGATIVE) 01/15/22 15:15 Plan (1) Alcohol use disorder: Status: Acute Plan: Continue detox protocol and I will give the patient a banana bag for vitamin replacement. (2) Hypertension: Status: Acute Plan: Start losartan 50 mg daily. (3) HIV positive: Status: Acute Plan: Continue Genoya (4) Degenerative disc disease, lumbar: Status: Acute Plan: Pain control if needed (5) Anemia: Status: Acute Plan: I will check anemia profile on the patient today with iron levels as well. (6) Thrombocytopenia: Status: Acute Plan: Follow-up anemia profile
[2022-01-16 12:11] LABS: IRON 124 ug/dL (50-175)
[2022-01-16] MEDS ORDERED: NORVASC TAB 10 MG ONE (16:32)
[2022-01-16] MEDS: NORVASC TAB 10 MG PO SCH (16:41)
[2022-01-16] MEDS ORDERED: CATAPRES TAB 0.1 MG PO ONE (18:47)
[2022-01-16] MEDS ORDERED: APRESOLINE INJ 20 MG VIAL IVP ONE (20:39)
[2022-01-16] MEDS: AMBIEN PO SCH (21:04)
[2022-01-17 06:28] LABS: BASOPHILS % (AUTO) 0.6 % (0.2-1.0); EOSINOPHILS % (AUTO) 0.9 % (0.9-2.9); HEMATOCRIT 28.6 % (42.0-54.0); HEMOGLOBIN 9.5 g/dL (13.5-18.0); LYMPHOCYTES % (AUTO) 28.3 % (21.0-51.0); MEAN CORPUSCULAR HEMOGLOBIN 31.9 pg (27.0-34.0); MEAN CORPUSCULAR HGB CONC 33.3 g/dL (33.0-35.0); MEAN CORPUSCULAR VOLUME 95.9 fL (80.0-100.0); MEAN PLATELET VOLUME 9.7 fL (7.4-11.0); MONOCYTES # (AUTO) 0.4 x10^3/uL (0.3-0.8); MONOCYTES % (AUTO) 11.7 % (0.0-13.0); NEUTROPHILS # (AUTO) 2.1 x10^3/uL (2.2-4.8); NEUTROPHILS % (AUTO) 58.5 % (42.0-75.0); RED BLOOD COUNT 2.98 X10^6/uL (4.7-6.0); RED CELL DISTRIBUTION WIDTH 16.5 % (11.6-16.5); WHITE BLOOD COUNT 3.6 X10^3/uL (3.6-10.0)
[2022-01-17 06:39] LABS: ALANINE AMINOTRANSFERASE 36 Units/L (12-78); ALBUMIN 3.2 g/dL (3.4-5.0); ALKALINE PHOSPHATASE 116 Units/L (46-116); ASPARTATE AMINO TRANSFERASE 49 Units/L (15-37); BLOOD UREA NITROGEN 5 mg/dL (7-18); CALCIUM 8.2 mg/dL (8.5-10.1); CARBON DIOXIDE 28.1 mmol/L (21-32); CHLORIDE 104 mmol/L (98-107); COR CA(FOR HYPOALB) 8.8 mg/dL (8.5-10.1); MAGNESIUM 1.6 mg/dL (1.7-2.9); SODIUM 139 mmol/L (136-145); TOTAL PROTEIN 7.5 g/dL (6.4-8.2); eGFR NON BLACK RACES > 60 (>60)
[2022-01-17] MEDS ORDERED: COZAAR PO SCH (09:00)
[2022-01-17] MEDS: NEURONTIN CAP 100 MG PO SCH (09:10)
[2022-01-17] MEDS: NORVASC TAB 10 MG PO SCH (09:10)
[2022-01-17] MEDS: PHENOBARBITAL TAB 30 MG (32.4MG) PO SCH (09:11)
[2022-01-17] MEDS: PROTONIX TAB 40 MG PO SCH (09:12)
[2022-01-17] MEDS: MVI IV SCH ×8 (11:35→22:00)
[2022-01-17] MEDS: MAGNESIUM SULFATE IV SCH ×8 (11:35→22:00)
[2022-01-17] MEDS: [UNRECOGNIZED DRUG - OTHER] IV SCH ×8 (11:35→22:00)
[2022-01-17] MEDS: NS IV SCH ×8 (11:35→22:00)
[2022-01-17] MEDS: PHENOBARBITAL TAB 15 MG (16.2MG) PO SCH ×3 (13:50→21:30)
--- NOTE | 2022-01-17 16:34 | PCM.PROG ---
Progress Note Progress Note for Day of Date of Exam: 01/17/22 Subjective Subjective: The patient is becoming more irritable since yesterday. He does not have any new complaints today. But it pressure is gone up more despite is starting amlodipine 10 mg yesterday as well. This morning we are increasing his losartan daily. He is already having signs of early alcohol detoxification so we will continue his current treatment of detox and recheck him again tomorrow morning. He has had some electrolyte abnormalities consisting of hypokalemia and hypomagnesemia which we are correcting as well. Past Medical Family Social History Allergies: Allergies No Known Drug Allergies Allergy (Verified 02/20/17 08:45) Review of Systems ROS: No change since H&P Vital Signs and I&O's Vital Signs: Temperature 98.2 F Pulse Rate [Right Brachial] 90 Respiratory Rate 18 Blood Pressure [Right Arm] 150/75 Blood Pressure [Left Arm] 168/86 O2 Sat by Pulse Oximetry 96 Intake and Output: Intake & Output 01/15/22 01/16/22 01/17/22 01/18/22 11:59 11:59 11:59 11:59 Intake Total 1050 / 1050 2710 / 2710 1120 / 1120 Balance 1050 / 1050 2710 / 2710 1120 / 1120 Physical Exam Oriented: Normal Eyes: Normal Ear: Normal Nose: Normal Throat: Normal Respiratory: Normal Cardiovascular: Normal : Normal Auscultation: Bowel Sounds: Normal Tenderness: Normal Skin: Normal Musculoskeletal: Normal Psychiatric: Normal Mood Description: Calm Affect: Normal Speech Pattern: Clear Laboratory and Diagnostics Result Diagrams: 01/17/22 05:25 01/17/22 05:25 Labs: Laboratory WBC 3.6 X10^3/uL (3.6-10.0) 01/17/22 05:25 RBC 2.98 X10^6/uL (4.7-6.0) L 01/17/22 05:25 Hgb 9.5 g/dL (13.5-18.0) L 01/17/22 05:25 Hct 28.6 % (42.0-54.0) L 01/17/22 05:25 MCV 95.9 fL (80.0-100.0) 01/17/22 05:25 MCH 31.9 pg (27.0-34.0) 01/17/22 05:25 MCHC 33.3 g/dL (33.0-35.0) 01/17/22 05:25 RDW 16.5 % (11.6-16.5) 01/17/22 05:25 Plt Count 113 X10^3/uL (150.0-450.0) L 01/17/22 05:25 Plt Count Comment Decreased (ADEQUATE) 01/16/22 04:30 MPV 9.7 fL (7.4-11.0) 01/17/22 05:25 Neut % (Auto) 58.5 % (42.0-75.0) 01/17/22 05:25 Lymph % (Auto) 28.3 % (21.0-51.0) 01/17/22 05:25 [place] % (Auto) 11.7 % (0.0-13.0) 01/17/22 05:25 Eos % (Auto) 0.9 % (0.9-2.9) 01/17/22 05:25 Baso % (Auto) 0.6 % (0.2-1.0) 01/17/22 05:25 Neut # (Auto) 2.1 x10^3/uL (2.2-4.8) L 01/17/22 05:25 Lymph # (Auto) 1.0 X10^3/uL (1.3-2.9) L 01/17/22 05:25 [place] # (Auto) 0.4 x10^3/uL (0.3-0.8) 01/17/22 05:25 Eos # (Auto) 0.0 x10^3/uL (0.0-0.2) 01/17/22 05:25 Baso # (Auto) 0.0 X10^3/uL (0.0-0.1) 01/17/22 05:25 Absolute Nucleated RBC 0.6 /100WBC 01/17/22 05:25 Total Counted 100 01/16/22 04:30 Neutrophils % (Manual) 42 % (39-76) 01/16/22 04:30 Band Neutrophils % 2 % (0-10) 01/16/22 04:30 Lymphocytes % (Manual) 45 % (13-43) H 01/16/22 04:30 Monocytes % (Manual) 10 % (4-9) H 01/16/22 04:30 Eosinophils % (Manual) 1 % (0-6) 01/16/22 04:30 Atypical Lymphocytes Few 01/16/22 04:30 Plt Morphology Comment Normal (NORMAL) 01/16/22 04:30 RBC Morphology Abnormal (NORMAL) 01/16/22 04:30 Hypochromasia 1+ A 01/16/22 04:30 Target Cells Present 01/16/22 04:30 Sodium 139 mmol/L (136-145) 01/17/22 05:25 Corrected Sodium TNP 01/17/22 05:25 Potassium 3.5 mmol/L (3.5-5.1) 01/17/22 05:25 Chloride 104 mmol/L (98-107) 01/17/22 05:25 Carbon Dioxide 28.1 mmol/L (21-32) 01/17/22 05:25 BUN 5 mg/dL (7-18) L 01/17/22 05:25 Creatinine 0.80 mg/dL (0.70-1.30) 01/17/22 05:25 Est GFR (MDRD) Af Amer > 60 (>60) 01/17/22 05:25 Est GFR (MDRD) Non-Af > 60 (>60) 01/17/22 05:25 Glucose 100 mg/dL (65-99) H 01/17/22 05:25 Calcium 8.2 mg/dL (8.5-10.1) L 01/17/22 05:25 Corrected Calcium 8.8 mg/dL (8.5-10.1) 01/17/22 05:25 Magnesium 1.6 mg/dL (1.7-2.9) L 01/17/22 05:25 Iron 124 ug/dL (50-175) 01/16/22 04:30 Transferrin 201 mg/dL (202-364) L 01/16/22 04:30 Ferritin 539 ng/mL (26-388) H 01/16/22 04:30 Total Bilirubin 0.40 mg/dL (0.2-1.0) 01/17/22 05:25 AST 49 Units/L (15-37) H 01/17/22 05:25 ALT 36 Units/L (12-78) 01/17/22 05:25 Alkaline Phosphatase 116 Units/L (46-116) 01/17/22 05:25 Total Protein 7.5 g/dL (6.4-8.2) 01/17/22 05:25 Albumin 3.2 g/dL (3.4-5.0) L 01/17/22 05:25 Globulin 4.3 g/dL (2.5-4.5) 01/17/22 05:25 Albumin/Globulin Ratio 0.7 Ratio (1.1-2.1) L 01/17/22 05:25 Vitamin B12 > 2000 pg/mL (193-986) H 01/16/22 04:30 Folate 14.2 ng/mL (>8.6) 01/16/22 04:30 Ethyl Alcohol mg/dL < 3 mg/dL (0-19.9) 01/15/22 12:35 SARS-CoV-2 (PCR) Negative (NEGATIVE) 01/15/22 15:15 Plan (1) Alcohol use disorder: Status: Acute Plan: Continue detox protocol and I will give the patient a banana bag for vitamin replacement. (2) Hypertension: Status: Acute Plan: Start losartan 50 mg daily. (3) HIV positive: Status: Acute Plan: Continue Genoya (4) Degenerative disc disease, lumbar: Status: Acute Plan: Pain control if needed (5) Anemia: Status: Acute Plan: I will check anemia profile on the patient today with iron levels as well. (6) Thrombocytopenia: Status: Acute Plan: Follow-up anemia profile (7) Hypokalemia: Status: Acute Plan: Replace potassium (8) Hypomagnesemia: Status: Acute Plan: Replace magnesium
[2022-01-17] MEDS: MAGNESIUM SULFATE 1 GRAM/100 mL PREMIX 1 G/100 ML BAG IV PRN ×2 (21:31→23:36)
[2022-01-17] MEDS: AMBIEN PO SCH (23:37)
[2022-01-18 04:21] VITALS: BP 168/84
[2022-01-18] MEDS: MVI IV SCH ×4 (04:35)
[2022-01-18] MEDS: MAGNESIUM SULFATE IV SCH ×4 (04:35)
[2022-01-18] MEDS: [UNRECOGNIZED DRUG - OTHER] IV SCH ×4 (04:35)
[2022-01-18] MEDS: NS IV SCH ×4 (04:35)
[2022-01-18 06:32] LABS: BASOPHILS % (AUTO) 0.9 % (0.2-1.0); EOSINOPHILS % (AUTO) 1.1 % (0.9-2.9); HEMATOCRIT 31.5 % (42.0-54.0); HEMOGLOBIN 10.3 g/dL (13.5-18.0); LYMPHOCYTES # (AUTO) 1.6 X10^3/uL (1.3-2.9); LYMPHOCYTES % (AUTO) 37.6 % (21.0-51.0); MEAN CORPUSCULAR HEMOGLOBIN 31.6 pg (27.0-34.0); MEAN CORPUSCULAR HGB CONC 32.6 g/dL (33.0-35.0); MEAN CORPUSCULAR VOLUME 96.9 fL (80.0-100.0); MEAN PLATELET VOLUME 10.5 fL (7.4-11.0); MONOCYTES # (AUTO) 0.5 x10^3/uL (0.3-0.8); MONOCYTES % (AUTO) 10.8 % (0.0-13.0); NEUTROPHILS # (AUTO) 2.2 x10^3/uL (2.2-4.8); NEUTROPHILS % (AUTO) 49.6 % (42.0-75.0); RED BLOOD COUNT 3.25 X10^6/uL (4.7-6.0); RED CELL DISTRIBUTION WIDTH 16.3 % (11.6-16.5); WHITE BLOOD COUNT 4.3 X10^3/uL (3.6-10.0)
[2022-01-18 06:39] LABS: ALANINE AMINOTRANSFERASE 40 Units/L (12-78); ALBUMIN 3.4 g/dL (3.4-5.0); ALKALINE PHOSPHATASE 135 Units/L (46-116); ASPARTATE AMINO TRANSFERASE 50 Units/L (15-37); BLOOD UREA NITROGEN 5 mg/dL (7-18); CALCIUM 8.6 mg/dL (8.5-10.1); CHLORIDE 103 mmol/L (98-107); MAGNESIUM 1.9 mg/dL (1.7-2.9); SODIUM 137 mmol/L (136-145); TOTAL PROTEIN 8.2 g/dL (6.4-8.2); eGFR NON BLACK RACES > 60 (>60)
[2022-01-18] MEDS: NORVASC TAB 10 MG PO SCH (08:36)
[2022-01-18] MEDS: NEURONTIN CAP 100 MG PO SCH (08:36)
[2022-01-18] MEDS: PROTONIX TAB 40 MG PO SCH (08:37)
[2022-01-18] MEDS ORDERED: HYZAAR 50/12.5 MG PO SCH (09:00)
== END 2022-01-18 09:25 | disposition home or self-care (01) ==
LOC: MED/SURG
PROVIDERS: ADMIT Family Medicine; ATTEND Family Medicine
DX: E87.6 Hypokalemia; I10 Essential (primary) hypertension; F10.20 Alcohol dependence, uncomplicated; D64.89 Other specified anemias; Z20.822 Contact with and (suspected) exposure to COVID-19; R94.31 Abnormal electrocardiogram [ECG] [EKG]; D69.6 Thrombocytopenia, unspecified; M51.36 Other intervertebral disc degeneration, lumbar region; E83.42 Hypomagnesemia; R74.8 Abnormal levels of other serum enzymes; F41.8 Other specified anxiety disorders; E78.2 Mixed hyperlipidemia; B20 Human immunodeficiency virus [HIV] disease

== ENCOUNTER 2022-02-18 13:15 | Inpatient (IN) ==
--- NOTE | 2022-02-18 14:44 | DR.GENAD ---
HPI Time Seen Time Seen by Provider: 02/18/22 14:43 PCP Primary Care Physician: WILDER Complaint/Symptoms Chief Complaint:: PT FAMILY MEMBER HASNT ATE SINCE FRIDAY HAS HAD N/V/D. PT FELL ONCE THIS AM, DUE TO DIZZINESS AND WEAK. PT UNABLE TO HOLD MEDICATIONS DOWN. PT CURRENTLY TRYING TO STOP DRINKING, LAST DRINK WAS POSSIBLY FRIDAY PER FAMILY MEMBER. Source History Provided: Patient and Family Member Mode of Arrival Mode of Arrival: Wheelchair Timing Onset of Chief Complaint: 02/18/22 PMH PMH Past Medical History: Yes Past Medical History: Anxiety, Dyslipidemia and Hypertension Past Surgical History: Yes Surgical History: Other Past Surgical History Comment: CATARACT SURGERY Family History History of Family Medical Conditions: Yes Family Medical History: Hypertension Social History Alcohol Use: Occasionally Do you use any recreational Drugs:: No Lives With: Family Lives Where: Home Infectious screening In the last 2 months have you had wt loss of >10#?: NO Have you had fever, night sweats or hemotysis?: No Have you traveled outside the country in the last 6 months?: No Isolation: Standard PE Vital Signs Vitals: Pulse Rate 83 Respiratory Rate 25 Blood Pressure [Right Arm] 150/75 Blood Pressure [Left Arm] 168/84 Blood Pressure 101/59 O2 Sat by Pulse Oximetry 97 ROR Labs Reviewed Result Diagrams: 02/21/22 04:20 02/21/22 04:20 Laboratory: WBC 7.4 X10^3/uL (3.6-10.0) 02/18/22 16:30 RBC 3.63 X10^6/uL (4.7-6.0) L 02/18/22 16:30 Hgb 11.2 g/dL (13.5-18.0) L 02/18/22 16:30 Hct 33.3 % (42.0-54.0) L 02/18/22 16:30 MCV 91.7 fL (80.0-100.0) 02/18/22 16:30 MCH 30.9 pg (27.0-34.0) 02/18/22 16:30 MCHC 33.7 g/dL (33.0-35.0) 02/18/22 16:30 RDW 15.8 % (11.6-16.5) 02/18/22 16:30 Plt Count 79 X10^3/uL (150.0-450.0) L 02/18/22 16:30 MPV 9.6 fL (7.4-11.0) 02/18/22 16:30 Neut % (Auto) 72.3 % (42.0-75.0) 02/18/22 16:30 Lymph % (Auto) 13.9 % (21.0-51.0) L 02/18/22 16:30 [facility] % (Auto) 13.4 % (0.0-13.0) H 02/18/22 16:30 Eos % (Auto) 0.1 % (0.9-2.9) L 02/18/22 16:30 Baso % (Auto) 0.3 % (0.2-1.0) 02/18/22 16:30 Neut # (Auto) 5.3 x10^3/uL (2.2-4.8) H 02/18/22 16:30 Lymph # (Auto) 1.0 X10^3/uL (1.3-2.9) L 02/18/22 16:30 [facility] # (Auto) 1.0 x10^3/uL (0.3-0.8) H 02/18/22 16:30 Eos # (Auto) 0.0 x10^3/uL (0.0-0.2) 02/18/22 16:30 Baso # (Auto) 0.0 X10^3/uL (0.0-0.1) 02/18/22 16:30 Absolute Nucleated RBC 0.2 /100WBC 02/18/22 16:30 Sodium 142 mmol/L (136-145) 02/18/22 16:30 Corrected Sodium TNP 02/18/22 16:30 Potassium 3.1 mmol/L (3.5-5.1) L 02/18/22 16:30 Chloride 96 mmol/L (98-107) L 02/18/22 16:30 Carbon Dioxide 28.6 mmol/L (21-32) 02/18/22 16:30 BUN 28 mg/dL (7-18) H 02/18/22 16:30 Creatinine 4.04 mg/dL (0.70-1.30) H 02/18/22 16:30 Est GFR (MDRD) Af Amer 20 (>60) L 02/18/22 16:30 Est GFR (MDRD) Non-Af 16 (>60) L 02/18/22 16:30 Glucose 105 mg/dL (65-99) H 02/18/22 16:30 Calcium 8.8 mg/dL (8.5-10.1) 02/18/22 16:30 Corrected Calcium TNP 02/18/22 16:30 Magnesium 0.5 mg/dL (2.0-2.9) L 02/18/22 16:30 Total Bilirubin 0.80 mg/dL (0.2-1.0) 02/18/22 16:30 AST 132 Units/L (15-37) H 02/18/22 16:30 ALT 77 Units/L (12-78) 02/18/22 16:30 Alkaline Phosphatase 109 Units/L (46-116) 02/18/22 16:30 Total Protein 9.0 g/dL (6.4-8.2) H 02/18/22 16:30 Albumin 4.0 g/dL (3.4-5.0) 02/18/22 16:30 Globulin 5.0 g/dL (2.5-4.5) H 02/18/22 16:30 Albumin/Globulin Ratio 0.8 Ratio (1.1-2.1) L 02/18/22 16:30 Ethyl Alcohol mg/dL < 3.0 mg/dL (0-19.9) 02/18/22 16:30 Opioid Opioid Risk Tool Age (Harshad box if 16-45): No History of Preadolescent Sexual Abuse: No Total: 0 Total Score Risk Category: Low Risk Copyright: Danilo TORRES predicting aberrant behaviors Discharge Plan Discharge Plan Patient Disposition: ADMITTED INPATIENT Condition: Stable
[2022-02-18] MEDS ORDERED: ZOFRAN INJ 4 MG VIAL IVP ONE (16:21)
[2022-02-18] MEDS ORDERED: NS 1,000 ML IV 1,000 ML IV ONE (16:21)
[2022-02-18] MEDS ORDERED: ZOFRAN INJ 4 MG VIAL ONE (16:24)
[2022-02-18] MEDS ORDERED: NS 1,000 ML IV 1,000 ML ONE ×2 (16:24→20:20)
[2022-02-18 16:39] LABS: BASOPHILS % (AUTO) 0.3 % (0.2-1.0); EOSINOPHILS % (AUTO) 0.1 % (0.9-2.9); HEMATOCRIT 33.3 % (42.0-54.0); HEMOGLOBIN 11.2 g/dL (13.5-18.0); LYMPHOCYTES % (AUTO) 13.9 % (21.0-51.0); MEAN CORPUSCULAR HEMOGLOBIN 30.9 pg (27.0-34.0); MEAN CORPUSCULAR HGB CONC 33.7 g/dL (33.0-35.0); MEAN CORPUSCULAR VOLUME 91.7 fL (80.0-100.0); MEAN PLATELET VOLUME 9.6 fL (7.4-11.0); MONOCYTES % (AUTO) 13.4 % (0.0-13.0); NEUTROPHILS # (AUTO) 5.3 x10^3/uL (2.2-4.8); NEUTROPHILS % (AUTO) 72.3 % (42.0-75.0); RED BLOOD COUNT 3.63 X10^6/uL (4.7-6.0); RED CELL DISTRIBUTION WIDTH 15.8 % (11.6-16.5); WHITE BLOOD COUNT 7.4 X10^3/uL (3.6-10.0)
[2022-02-18 17:34] LABS: ALANINE AMINOTRANSFERASE 77 Units/L (12-78); ALKALINE PHOSPHATASE 109 Units/L (46-116); ASPARTATE AMINO TRANSFERASE 132 Units/L (15-37); BLOOD UREA NITROGEN 28 mg/dL (7-18); CALCIUM 8.8 mg/dL (8.5-10.1); CARBON DIOXIDE 28.6 mmol/L (21-32); CHLORIDE 96 mmol/L (98-107); CREATININE 4.04 mg/dL (0.70-1.30); SODIUM 142 mmol/L (136-145); eGFR NON BLACK RACES 16 (>60)
[2022-02-18] MEDS ORDERED: NS 1,000 ML IV 1,000 ML IV SCH (18:00)
[2022-02-18] MEDS ORDERED: ZOFRAN TAB 4 MG PO PRN (18:13)
[2022-02-18] MEDS ORDERED: MOTRIN TAB 800 MG PO PRN (18:14)
[2022-02-18] MEDS ORDERED: PHENOBARBITAL SODIUM INJ 65 MG VIAL IM PRN (18:14)
[2022-02-18] MEDS ORDERED: KAOPECTATE (NEW FORMULA) PO PRN ×2 (18:14→18:19)
[2022-02-18] MEDS ORDERED: MAALOX or MYLANTA PO PRN (18:14)
[2022-02-18] MEDS ORDERED: LIBRIUM PO PRN (18:14)
[2022-02-18] MEDS ORDERED: MILK OF MAGNESIA PO PRN (18:14)
[2022-02-18] MEDS ORDERED: MVI INJ (ADULT) IV ONE (20:20)
[2022-02-18] MEDS ORDERED: MAGNESIUM SULFATE 50% INJ VIAL ONE (20:22)
[2022-02-18 20:23] LABS: BILIRUBIN,URINE 2+ (NEGATIVE); BLOOD/HEMOGLOBIN,URINE 1+ (NEGATIVE); GLUCOSE, URINE NEGATIVE (NEGATIVE); KETONES,URINE 1+ (NEGATIVE); LEUKOCYTE ESTERASE ,URINE 2+ (NEGATIVE); NITRITES,URINE NEGATIVE (NEGATIVE); PROTEIN,URINE 2+ (NEGATIVE); UROBILINOGEN,URINE 2+ (NORMAL)
[2022-02-18] MEDS: MAGNESIUM SULFATE 1 GRAM/100 mL PREMIX 1 G/100 ML BAG IV SCH ×2 (20:27→22:22)
[2022-02-18] MEDS: PHENOBARBITAL TAB 30 MG (32.4MG) PO SCH (20:27)
[2022-02-18] MEDS: AMBIEN PO SCH (20:27)
[2022-02-18 20:31] LABS: COLOR,URINE YELLOW (YELLOW)
[2022-02-18 20:32] LABS: APPEARANCE,URINE SLIGHTLY HAZY (CLEAR); BACTERIA,URINE TRACE /HPF (NEGATIVE); SQUAMOUS EPITHELIAL CELL,UR RARE /HPF (NEGATIVE)
[2022-02-18] MEDS: THIAMINE HCL INJ IM SCH (21:03)
[2022-02-18] MEDS: NS 1,000 ML IV 1,000 ML with MAGNESIUM SULFATE 50% INJ VIAL 1 G, MVI INJ (ADULT) 10 ML IV SCH ×3 (21:48)
[2022-02-18] MEDS ORDERED: NS 500 ML IV 500 ML IV ONE (22:04)
[2022-02-19 05:37] LABS: EOSINOPHILS % (AUTO) 0.7 % (0.9-2.9); HEMATOCRIT 28.1 % (42.0-54.0); HEMOGLOBIN 9.3 g/dL (13.5-18.0); LYMPHOCYTES # (AUTO) 1.4 X10^3/uL (1.3-2.9); LYMPHOCYTES % (AUTO) 27.7 % (21.0-51.0); MEAN CORPUSCULAR HEMOGLOBIN 30.4 pg (27.0-34.0); MEAN CORPUSCULAR HGB CONC 33.1 g/dL (33.0-35.0); MEAN PLATELET VOLUME 10.9 fL (7.4-11.0); MONOCYTES # (AUTO) 0.6 x10^3/uL (0.3-0.8); MONOCYTES % (AUTO) 12.5 % (0.0-13.0); NEUTROPHILS # (AUTO) 2.9 x10^3/uL (2.2-4.8); NEUTROPHILS % (AUTO) 58.1 % (42.0-75.0); RED BLOOD COUNT 3.06 X10^6/uL (4.7-6.0); RED CELL DISTRIBUTION WIDTH 15.5 % (11.6-16.5)
[2022-02-19 05:48] LABS: ALANINE AMINOTRANSFERASE 64 Units/L (12-78); ALBUMIN 3.3 g/dL (3.4-5.0); ALKALINE PHOSPHATASE 91 Units/L (46-116); ASPARTATE AMINO TRANSFERASE 105 Units/L (15-37); BLOOD UREA NITROGEN 31 mg/dL (7-18); CALCIUM 7.6 mg/dL (8.5-10.1); CARBON DIOXIDE 27.6 mmol/L (21-32); CHLORIDE 100 mmol/L (98-107); COR CA(FOR HYPOALB) 8.2 mg/dL (8.5-10.1); CREATININE 3.45 mg/dL (0.70-1.30); SODIUM 140 mmol/L (136-145); TOTAL PROTEIN 7.3 g/dL (6.4-8.2); eGFR NON BLACK RACES 19 (>60)
[2022-02-19] MEDS: MAGNESIUM SULFATE 1 GRAM/100 mL PREMIX 1 G/100 ML BAG IV SCH (05:49)
[2022-02-19] MEDS: NS 1,000 ML IV 1,000 ML with MAGNESIUM SULFATE 50% INJ VIAL 1 G, MVI INJ (ADULT) 10 ML IV SCH ×6 (05:50→18:21)
[2022-02-19] MEDS: PHENOBARBITAL TAB 30 MG (32.4MG) PO SCH ×3 (08:32→18:17)
[2022-02-19] MEDS ORDERED: K-DUR TAB 20 MEQ PO ONE ×2 (09:00→17:00)
[2022-02-19] MEDS ORDERED: MAGNESIUM SULFATE IV ONE ×2 (09:00)
[2022-02-19] MEDS ORDERED: NS IV ONE ×2 (09:00)
[2022-02-19] MEDS ORDERED: THIAMINE HCL INJ IM SCH (09:00)
[2022-02-19] MEDS: THIAMINE HCL INJ IM SCH (09:00)
[2022-02-19 11:22] VITALS: BMI 27.1
[2022-02-19 16:03] LABS: MAGNESIUM 3.4 mg/dL (2.0-2.9)
--- NOTE | 2022-02-19 17:58 | DR.H&P ---
H&P History & Physical for Day of: H&P Date: 02/19/22 Chief Complaint Chief Complaint: Dizziness and falling Allergies Allergies Allergy/AdvReac Type Severity Reaction Status Date / Time No Known Drug Allergies Allergy Verified 02/20/17 08:45 History of Present Illness History of Present Illness: This is a 61-year-old black male well-known to me. He has a history of alcohol use disorder and has been trying to stop drinking. His last drink was about 4 days ago and 5 days ago he started developing symptoms of nausea vomiting with ataxia and falling x1. His description sounds like he is in withdrawals from alcohol and he is found to be profoundly dehydrated with a creatinine greater than 4 as well as hypokalemic, hypomagnesemic, thrombocytopenic and with anemia. Past Medical History Past Medical History: Anxiety, Dyslipidemia and Hypertension Additional Medical History: HIV positive, chronic low back pain and anxiety, alcohol use disorder Past Surgical History Surgical History: Other Family History Family Medical History: Diabetes Mellitus and Hypertension Social History Does patient currently use any type of tobacco product: No Have you used tobacco products in the last 12 months: No Type of Tobacco Use: None Does any household member use tobacco: No Alcohol Use: Heavy Drug Use: None Medications Home Medications: No Known Drug Allergies Allergy (Verified 02/20/17 08:45) Labs Result Diagrams: 02/19/22 04:10 02/19/22 15:33 Labs: 02/18/22 20:08 Urine,Clean Catch Urine Culture - Preliminary Laboratory WBC 5.0 X10^3/uL (3.6-10.0) 02/19/22 04:10 RBC 3.06 X10^6/uL (4.7-6.0) L 02/19/22 04:10 Hgb 9.3 g/dL (13.5-18.0) L 02/19/22 04:10 Hct 28.1 % (42.0-54.0) L 02/19/22 04:10 MCV 92.0 fL (80.0-100.0) 02/19/22 04:10 MCH 30.4 pg (27.0-34.0) 02/19/22 04:10 MCHC 33.1 g/dL (33.0-35.0) 02/19/22 04:10 RDW 15.5 % (11.6-16.5) 02/19/22 04:10 Plt Count 69 X10^3/uL (150.0-450.0) L 02/19/22 04:10 MPV 10.9 fL (7.4-11.0) 02/19/22 04:10 Neut % (Auto) 58.1 % (42.0-75.0) 02/19/22 04:10 Lymph % (Auto) 27.7 % (21.0-51.0) 02/19/22 04:10 [place] % (Auto) 12.5 % (0.0-13.0) 02/19/22 04:10 Eos % (Auto) 0.7 % (0.9-2.9) L 02/19/22 04:10 Baso % (Auto) 1.0 % (0.2-1.0) 02/19/22 04:10 Neut # (Auto) 2.9 x10^3/uL (2.2-4.8) 02/19/22 04:10 Lymph # (Auto) 1.4 X10^3/uL (1.3-2.9) 02/19/22 04:10 [place] # (Auto) 0.6 x10^3/uL (0.3-0.8) 02/19/22 04:10 Eos # (Auto) 0.0 x10^3/uL (0.0-0.2) 02/19/22 04:10 Baso # (Auto) 0.0 X10^3/uL (0.0-0.1) 02/19/22 04:10 Absolute Nucleated RBC 0.1 /100WBC 02/19/22 04:10 Sodium 140 mmol/L (136-145) 02/19/22 04:10 Corrected Sodium TNP 02/19/22 04:10 Potassium 3.0 mmol/L (3.5-5.1) L 02/19/22 15:33 Chloride 100 mmol/L (98-107) 02/19/22 04:10 Carbon Dioxide 27.6 mmol/L (21-32) 02/19/22 04:10 BUN 31 mg/dL (7-18) H 02/19/22 04:10 Creatinine 3.45 mg/dL (0.70-1.30) H 02/19/22 04:10 Est GFR (MDRD) Af Amer 23 (>60) L 02/19/22 04:10 Est GFR (MDRD) Non-Af 19 (>60) L 02/19/22 04:10 Glucose 98 mg/dL (65-99) 02/19/22 04:10 Calcium 7.6 mg/dL (8.5-10.1) L 02/19/22 04:10 Corrected Calcium 8.2 mg/dL (8.5-10.1) L 02/19/22 04:10 Magnesium 3.4 mg/dL (2.0-2.9) H 02/19/22 15:33 Total Bilirubin 0.60 mg/dL (0.2-1.0) 02/19/22 04:10 AST 105 Units/L (15-37) H 02/19/22 04:10 ALT 64 Units/L (12-78) 02/19/22 04:10 Alkaline Phosphatase 91 Units/L (46-116) 02/19/22 04:10 Total Protein 7.3 g/dL (6.4-8.2) 02/19/22 04:10 Albumin 3.3 g/dL (3.4-5.0) L 02/19/22 04:10 Globulin 4.0 g/dL (2.5-4.5) 02/19/22 04:10 Albumin/Globulin Ratio 0.8 Ratio (1.1-2.1) L 02/19/22 04:10 Specimen Type Clean catch urine 02/18/22 20:08 Urine Color Yellow (YELLOW) 02/18/22 20:08 Urine Appearance Slightly hazy (CLEAR) 02/18/22 20:08 Urine pH 5.0 (5.0 - 8.0) 02/18/22 20:08 Ur Specific [place] 1.020 (1.000-1.030) 02/18/22 20:08 Urine Protein 2+ (NEGATIVE) 02/18/22 20:08 Urine Glucose (UA) Negative (NEGATIVE) 02/18/22 20:08 Urine Ketones 1+ (NEGATIVE) 02/18/22 20:08 Urine Blood 1+ (NEGATIVE) 02/18/22 20:08 Urine Nitrite Negative (NEGATIVE) 02/18/22 20:08 Urine Bilirubin 2+ (NEGATIVE) 02/18/22 20:08 Urine Urobilinogen 2+ (NORMAL) 02/18/22 20:08 Ur Leukocyte Esterase 2+ (NEGATIVE) 02/18/22 20:08 Urine RBC 5-10 /HPF (0-3) A 02/18/22 20:08 Urine WBC 20-30 /HPF (0-5) A 02/18/22 20:08 Ur Squamous Epith Cells Rare /HPF (NEGATIVE) 02/18/22 20:08 Urine Bacteria Trace /HPF (NEGATIVE) 02/18/22 20:08 Ur Culture Indicated? Yes/culture set up 02/18/22 20:08 Urine Opiates Screen Negative (NEG=<300) 02/18/22 20:08 Urine Methadone Screen Negative (NEG=<300) 02/18/22 20:08 Ur Barbiturates Screen Positive (NEG=<200) 02/18/22 20:08 Ur Phencyclidine Scrn Negative (NEG=<25) 02/18/22 20:08 Ur Amphetamines Screen Negative (NEG=<1000) 02/18/22 20:08 U Benzodiazepines Scrn Negative (NEG=<200) 02/18/22 20:08 Urine Cocaine Screen Negative (NEG=<300) 02/18/22 20:08 U Marijuana (THC) Screen Negative (NEG=<50) 02/18/22 20:08 Ethyl Alcohol mg/dL < 3.0 mg/dL (0-19.9) 02/18/22 16:30 Review of Systems Constitutional: Weakness and Malaise Eyes: No Symptoms Reported ENT: No Symptoms Reported Respiratory: No Symptoms Reported Cardiovascular: No Symptoms Reported Gastrointestinal: Nausea and Vomiting Genitourinary: No Symptoms Reported Musculoskeletal: No Symptoms Reported Skin: No Symptoms Reported Neurological: Weakness and Incoordination Physical Exam Vital Signs: Temperature 98.4 F Pulse Rate [Left Radial] 93 Pulse Rate 83 Respiratory Rate 20 Blood Pressure [Right Arm] 135/78 Blood Pressure [Left Arm] 168/84 Blood Pressure 101/59 O2 Sat by Pulse Oximetry 95 Oriented: Normal, Time, Person and Place Eyes: Normal Nose: Normal Respiratory: Clear Throughout Cardiovascular: Normal Auscultation: Bowel Sounds: Normal Palpation: Normal Tenderness: Normal Skin: Decreased [place] Musculoskeletal: Normal Psychiatric: Normal Mood Description: Calm Affect: Normal Speech Pattern: Clear and Appropriate Assessment/Plan (1) Alcohol withdrawal syndrome: Status: Acute Plan: Alcohol detox protocol (2) Acute dehydration: Status: Acute Plan: Banana bag at 150 cc an hour x24 hours then changed to normal saline at 125 mL/h. (3) Thrombocytopenia: Status: Acute (4) Anemia: Status: Acute (5) Hypomagnesemia: Status: Acute Plan: Replace magnesium (6) Hypokalemia: Status: Acute Plan: Potassium replacement protocol (7) HIV positive: Status: Acute Plan: Resume his HIV meds (8) Hypertension: Status: Acute Plan: Monitor blood pressure (9) Alcohol use disorder: Status: Acute Plan: Counseled on alcohol cessation and counseled him on Alcoholics Anonymous (10) Degenerative disc disease, lumbar: Status: Acute Review H&P Reviewed: Yes Patient was examined?: Yes
[2022-02-19] MEDS: AMBIEN PO SCH (20:55)
[2022-02-19] MEDS: PHENOBARBITAL TAB 15 MG (16.2MG) PO SCH (20:55)
[2022-02-19] MEDS: NS 1,000 ML IV 1,000 ML IV SCH (23:18)
[2022-02-20 05:40] LABS: BASOPHILS % (AUTO) 0.6 % (0.2-1.0); EOSINOPHILS # (AUTO) 0.1 x10^3/uL (0.0-0.2); EOSINOPHILS % (AUTO) 1.4 % (0.9-2.9); HEMATOCRIT 25.4 % (42.0-54.0); HEMOGLOBIN 8.6 g/dL (13.5-18.0); LYMPHOCYTES % (AUTO) 19.5 % (21.0-51.0); MEAN CORPUSCULAR HEMOGLOBIN 31.7 pg (27.0-34.0); MEAN PLATELET VOLUME 10.6 fL (7.4-11.0); MONOCYTES # (AUTO) 0.6 x10^3/uL (0.3-0.8); MONOCYTES % (AUTO) 11.7 % (0.0-13.0); NEUTROPHILS # (AUTO) 3.3 x10^3/uL (2.2-4.8); NEUTROPHILS % (AUTO) 66.8 % (42.0-75.0); RED BLOOD COUNT 2.73 X10^6/uL (4.7-6.0); RED CELL DISTRIBUTION WIDTH 15.5 % (11.6-16.5)
[2022-02-20 05:49] LABS: ALANINE AMINOTRANSFERASE 59 Units/L (12-78); ALBUMIN 3.1 g/dL (3.4-5.0); ALKALINE PHOSPHATASE 157 Units/L (46-116); ASPARTATE AMINO TRANSFERASE 90 Units/L (15-37); BLOOD UREA NITROGEN 17 mg/dL (7-18); CALCIUM 7.8 mg/dL (8.5-10.1); CARBON DIOXIDE 24.2 mmol/L (21-32); CHLORIDE 107 mmol/L (98-107); COR CA(FOR HYPOALB) 8.5 mg/dL (8.5-10.1); CREATININE 1.37 mg/dL (0.70-1.30); MAGNESIUM 1.7 mg/dL (2.0-2.9); SODIUM 143 mmol/L (136-145); TOTAL PROTEIN 3.8 g/dL (6.4-8.2); eGFR NON BLACK RACES 56 (>60)
[2022-02-20] MEDS: NS 1,000 ML IV 1,000 ML IV SCH ×2 (06:08→16:16)
[2022-02-20] MEDS ORDERED: K-DUR TAB 20 MEQ PO ONE (09:00)
[2022-02-20] MEDS: THIAMINE HCL INJ IM SCH (09:18)
[2022-02-20] MEDS: PHENOBARBITAL TAB 15 MG (16.2MG) PO SCH ×3 (09:18→16:16)
[2022-02-20] MEDS: MAGNESIUM SULFATE 1 GRAM/100 mL PREMIX 1 G/100 ML BAG IV PRN ×2 (09:19→13:33)
--- NOTE | 2022-02-20 16:28 | PCM.PROG ---
Progress Note Progress Note for Day of Date of Exam: 02/20/22 Subjective Subjective: The patient reports he is feeling better this morning. His nurse reports he has some confusion last night and accidentally spilled his urine in the bed last night. It is noted he is hydration status is much improved with his creatinine now less than 2.0 and he is approaching his normal baseline now. His magnesium and potassium still low bit low we will correct that today. We will plan on possible discharge home tomorrow morning. Past Medical Family Social History Allergies: Allergies No Known Drug Allergies Allergy (Verified 02/20/17 08:45) Review of Systems ROS: No change since H&P Vital Signs and I&O's Vital Signs: Temperature 98.6 F Pulse Rate [Left Radial] 71 Pulse Rate 83 Respiratory Rate 20 Blood Pressure [Right Arm] 143/73 Blood Pressure [Left Arm] 134/81 Blood Pressure 101/59 O2 Sat by Pulse Oximetry 100 Intake and Output: Intake & Output 02/18/22 02/19/22 02/20/22 02/21/22 11:59 11:59 11:59 11:59 Intake Total 3650 / 3650 5378 / 5378 Output Total 2300 / 2300 Balance 3650 / 3650 3078 / 3078 Physical Exam Oriented: Normal, Time, Person and Place Eyes: Normal Nose: Normal Cardiovascular: Normal Auscultation: Bowel Sounds: Normal Tenderness: Normal Skin: Decreased [place] Musculoskeletal: Normal Psychiatric: Normal Mood Description: Calm Affect: Normal Speech Pattern: Clear Laboratory and Diagnostics Result Diagrams: 02/20/22 04:15 02/20/22 04:15 Labs: 02/18/22 20:08 Urine,Clean Catch Urine Culture - Final Laboratory WBC 5.0 X10^3/uL (3.6-10.0) 02/20/22 04:15 RBC 2.73 X10^6/uL (4.7-6.0) L 02/20/22 04:15 Hgb 8.6 g/dL (13.5-18.0) L 02/20/22 04:15 Hct 25.4 % (42.0-54.0) L 02/20/22 04:15 MCV 93.0 fL (80.0-100.0) 02/20/22 04:15 MCH 31.7 pg (27.0-34.0) 02/20/22 04:15 MCHC 34.0 g/dL (33.0-35.0) 02/20/22 04:15 RDW 15.5 % (11.6-16.5) 02/20/22 04:15 Plt Count 70 X10^3/uL (150.0-450.0) L 02/20/22 04:15 MPV 10.6 fL (7.4-11.0) 02/20/22 04:15 Neut % (Auto) 66.8 % (42.0-75.0) 02/20/22 04:15 Lymph % (Auto) 19.5 % (21.0-51.0) L 02/20/22 04:15 [place] % (Auto) 11.7 % (0.0-13.0) 02/20/22 04:15 Eos % (Auto) 1.4 % (0.9-2.9) 02/20/22 04:15 Baso % (Auto) 0.6 % (0.2-1.0) 02/20/22 04:15 Neut # (Auto) 3.3 x10^3/uL (2.2-4.8) 02/20/22 04:15 Lymph # (Auto) 1.0 X10^3/uL (1.3-2.9) L 02/20/22 04:15 [place] # (Auto) 0.6 x10^3/uL (0.3-0.8) 02/20/22 04:15 Eos # (Auto) 0.1 x10^3/uL (0.0-0.2) 02/20/22 04:15 Baso # (Auto) 0.0 X10^3/uL (0.0-0.1) 02/20/22 04:15 Absolute Nucleated RBC 0.0 /100WBC 02/20/22 04:15 Sodium 143 mmol/L (136-145) 02/20/22 04:15 Corrected Sodium TNP 02/20/22 04:15 Potassium 3.0 mmol/L (3.5-5.1) L 02/20/22 04:15 Chloride 107 mmol/L (98-107) 02/20/22 04:15 Carbon Dioxide 24.2 mmol/L (21-32) 02/20/22 04:15 BUN 17 mg/dL (7-18) 02/20/22 04:15 Creatinine 1.37 mg/dL (0.70-1.30) H 02/20/22 04:15 Est GFR (MDRD) Af Amer > 60 (>60) 02/20/22 04:15 Est GFR (MDRD) Non-Af 56 (>60) L 02/20/22 04:15 Glucose 100 mg/dL (65-99) H 02/20/22 04:15 Calcium 7.8 mg/dL (8.5-10.1) L 02/20/22 04:15 Corrected Calcium 8.5 mg/dL (8.5-10.1) 02/20/22 04:15 Magnesium 1.7 mg/dL (2.0-2.9) L 02/20/22 04:15 Total Bilirubin 0.60 mg/dL (0.2-1.0) 02/20/22 04:15 AST 90 Units/L (15-37) H 02/20/22 04:15 ALT 59 Units/L (12-78) 02/20/22 04:15 Alkaline Phosphatase 157 Units/L (46-116) H 02/20/22 04:15 Total Protein 3.8 g/dL (6.4-8.2) L 02/20/22 04:15 Albumin 3.1 g/dL (3.4-5.0) L 02/20/22 04:15 Globulin 0.7 g/dL (2.5-4.5) L 02/20/22 04:15 Albumin/Globulin Ratio 4.4 Ratio (1.1-2.1) H 02/20/22 04:15 Specimen Type Clean catch urine 02/18/22 20:08 Urine Color Yellow (YELLOW) 02/18/22 20:08 Urine Appearance Slightly hazy (CLEAR) 02/18/22 20:08 Urine pH 5.0 (5.0 - 8.0) 02/18/22 20:08 Ur Specific [place] 1.020 (1.000-1.030) 02/18/22 20:08 Urine Protein 2+ (NEGATIVE) 02/18/22 20:08 Urine Glucose (UA) Negative (NEGATIVE) 02/18/22 20:08 Urine Ketones 1+ (NEGATIVE) 02/18/22 20:08 Urine Blood 1+ (NEGATIVE) 02/18/22 20:08 Urine Nitrite Negative (NEGATIVE) 02/18/22 20:08 Urine Bilirubin 2+ (NEGATIVE) 02/18/22 20:08 Urine Urobilinogen 2+ (NORMAL) 02/18/22 20:08 Ur Leukocyte Esterase 2+ (NEGATIVE) 02/18/22 20:08 Urine RBC 5-10 /HPF (0-3) A 02/18/22 20:08 Urine WBC 20-30 /HPF (0-5) A 02/18/22 20:08 Ur Squamous Epith Cells Rare /HPF (NEGATIVE) 02/18/22 20:08 Urine Bacteria Trace /HPF (NEGATIVE) 02/18/22 20:08 Ur Culture Indicated? Yes/culture set up 02/18/22 20:08 Urine Opiates Screen Negative (NEG=<300) 02/18/22 20:08 Urine Methadone Screen Negative (NEG=<300) 02/18/22 20:08 Ur Barbiturates Screen Positive (NEG=<200) 02/18/22 20:08 Ur Phencyclidine Scrn Negative (NEG=<25) 02/18/22 20:08 Ur Amphetamines Screen Negative (NEG=<1000) 02/18/22 20:08 U Benzodiazepines Scrn Negative (NEG=<200) 02/18/22 20:08 Urine Cocaine Screen Negative (NEG=<300) 02/18/22 20:08 U Marijuana (THC) Screen Negative (NEG=<50) 02/18/22 20:08 Ethyl Alcohol mg/dL < 3.0 mg/dL (0-19.9) 02/18/22 16:30 Plan (1) Alcohol withdrawal syndrome: Status: Acute Plan: Alcohol detox protocol (2) Acute dehydration: Status: Acute Plan: Banana bag at 150 cc an hour x24 hours then changed to normal saline at 125 mL/h. (3) Thrombocytopenia: Status: Acute Plan: Monitor platelet count daily (4) Anemia: Status: Acute Plan: Follow daily hemoglobin and hematocrit with every morning CBC draws. (5) Hypomagnesemia: Status: Acute Plan: Replace magnesium (6) Hypokalemia: Status: Acute Plan: Potassium replacement protocol (7) HIV positive: Status: Acute Plan: Resume his HIV meds (8) Hypertension: Status: Acute Plan: Monitor blood pressure (9) Alcohol use disorder: Status: Acute Plan: Counseled on alcohol cessation and counseled him on Alcoholics An onymous (10) Degenerative disc disease, lumbar: Status: Acute Plan: Pain control if needed.
[2022-02-20] MEDS: NORVASC TAB 10 MG PO SCH (17:31)
[2022-02-20] MEDS: AMBIEN PO SCH (20:25)
[2022-02-21] MEDS: NS 1,000 ML IV 1,000 ML IV SCH ×2 (00:09→05:09)
[2022-02-21 04:55] LABS: BASOPHILS % (AUTO) 0.7 % (0.2-1.0); EOSINOPHILS # (AUTO) 0.1 x10^3/uL (0.0-0.2); EOSINOPHILS % (AUTO) 1.3 % (0.9-2.9); HEMATOCRIT 27.1 % (42.0-54.0); HEMOGLOBIN 8.9 g/dL (13.5-18.0); LYMPHOCYTES # (AUTO) 1.3 X10^3/uL (1.3-2.9); LYMPHOCYTES % (AUTO) 30.3 % (21.0-51.0); MEAN CORPUSCULAR HEMOGLOBIN 30.2 pg (27.0-34.0); MEAN CORPUSCULAR HGB CONC 32.9 g/dL (33.0-35.0); MEAN PLATELET VOLUME 11.3 fL (7.4-11.0); MONOCYTES # (AUTO) 0.8 x10^3/uL (0.3-0.8); MONOCYTES % (AUTO) 17.1 % (0.0-13.0); NEUTROPHILS # (AUTO) 2.2 x10^3/uL (2.2-4.8); NEUTROPHILS % (AUTO) 50.6 % (42.0-75.0); RED BLOOD COUNT 2.95 X10^6/uL (4.7-6.0); RED CELL DISTRIBUTION WIDTH 15.6 % (11.6-16.5); WHITE BLOOD COUNT 4.4 X10^3/uL (3.6-10.0)
[2022-02-21 05:11] LABS: ALANINE AMINOTRANSFERASE 58 Units/L (12-78); ALBUMIN 3.1 g/dL (3.4-5.0); ALKALINE PHOSPHATASE 157 Units/L (46-116); ASPARTATE AMINO TRANSFERASE 74 Units/L (15-37); BLOOD UREA NITROGEN 10 mg/dL (7-18); CALCIUM 8.1 mg/dL (8.5-10.1); CARBON DIOXIDE 26.6 mmol/L (21-32); CHLORIDE 105 mmol/L (98-107); COR CA(FOR HYPOALB) 8.8 mg/dL (8.5-10.1); CREATININE 1.02 mg/dL (0.70-1.30); SODIUM 143 mmol/L (136-145); TOTAL PROTEIN 4.2 g/dL (6.4-8.2); eGFR NON BLACK RACES > 60 (>60)
[2022-02-21] MEDS: MAGNESIUM SULFATE 1 GRAM/100 mL PREMIX 1 G/100 ML BAG IV PRN ×2 (05:27→06:44)
[2022-02-21] MEDS ORDERED: K-DUR TAB 20 MEQ PO ONE ×2 (06:28→06:31)
[2022-02-21] MEDS: NORVASC TAB 10 MG PO SCH (09:04)
[2022-02-21] MEDS: THIAMINE HCL INJ IM SCH (09:11)
[2022-02-21 09:18] VITALS: BP 152/80
[2022-02-21] MEDS ORDERED: COLACE CAP 100 MG PO SCH (21:00)
== END 2022-02-21 10:40 | disposition home or self-care (01) | DRG 897 ==
LOC: ICU 13:15 → ER 13:15 → OBSVTOIN 17:43 → ICU 18:04
PROVIDERS: ADMIT Family Medicine; ATTEND Family Medicine
DX: F41.8 Other specified anxiety disorders; I10 Essential (primary) hypertension; E78.2 Mixed hyperlipidemia; R11.2 Nausea with vomiting, unspecified; E86.0 Dehydration; D64.89 Other specified anemias; W18.39XA Other fall on same level, initial encounter; M51.36 Other intervertebral disc degeneration, lumbar region; R42 Dizziness and giddiness; E87.6 Hypokalemia; R19.7 Diarrhea, unspecified; D69.6 Thrombocytopenia, unspecified; R53.1 Weakness; E83.42 Hypomagnesemia; Z21 Asymptomatic human immunodeficiency virus [HIV] infection status; F10.939 Alcohol use, unspecified with withdrawal, unspecified

== ENCOUNTER 2023-10-09 10:07 | Inpatient (IN) ==
--- NOTE | 2023-10-09 10:32 | DR.EXTPAIN ---
HPI Time seen Time Seen by Provider: 10/09/23 10:23 Complaint/Symptoms Chief Complaint Doctor Comments: 62-year-old male presents for evaluation. Patient has been falling frequently at home recently. Fell yesterday, fell today. Pain in the left neck and low back pain. Spouse believes he is falling due to combining his alcohol with pain medication. Patient states she just tripped sometimes and falls. Patient does drink alcohol on a daily basis. Denies any fever, chills, upper respiratory symptoms, bowel or bladder issues. Having generalized weakness. Having pain in the neck, low back region. Pain worse with movement. Nothing makes it better. COVID-19 Coronavirus risk:travel/contact w/high risk person: No Has patient experienced Coronavirus symptoms: No Nurses notes reviewed Nurses Notes Review: Yes Source History Provided: Patient and Significant Other Mode of arrival Mode of Arrival: Ambulatory [facility] Past Medical History: Anxiety, Dyslipidemia, GERD and Hypertension Past Surgical History: Yes Surgical History: Other Family History Family Medical History: Diabetes Mellitus and Hypertension Social History Alcohol Use: DAILY Do you use any recreational Drugs:: No Travel Risk Coronavirus risk:travel/contact w/high risk person: No Has patient experienced Coronavirus symptoms: No ROS Review of Systems Constitutional: Malaise and Weakness Eyes: No Symptoms Reported ENTM: No Symptoms Reported Respiratoy: No Symptoms Reported Cardiovascular: No Symptoms Reported Gastrointestinal/Abdominal: No Symptoms Reported Genitourinary: No Symptoms Reported Neurological: Weakness Musculoskeletal: See HPI Integumentary: No Symptoms Reported All Other Systems: Reviewed and Negative PE Vital Signs Vitals: Vital Signs Temperature 98.2 F Pulse Rate 56 Pulse Rate 57 Pulse Rate 56 Pulse Rate 57 Pulse Rate 63 Pulse Rate 60 Pulse Rate 58 Pulse Rate 64 Pulse Rate 62 Pulse Rate 61 Pulse Rate 65 Respiratory Rate 18 Respiratory Rate 25 Respiratory Rate 18 Respiratory Rate 23 Respiratory Rate 30 Respiratory Rate 19 Respiratory Rate 18 Respiratory Rate 23 Respiratory Rate 18 Respiratory Rate 16 Blood Pressure 94/61 O2 Sat by Pulse Oximetry 99 O2 Sat by Pulse Oximetry 99 O2 Sat by Pulse Oximetry 99 O2 Sat by Pulse Oximetry 100 O2 Sat by Pulse Oximetry 100 O2 Sat by Pulse Oximetry 100 O2 Sat by Pulse Oximetry 99 O2 Sat by Pulse Oximetry 96 O2 Sat by Pulse Oximetry 99 O2 Sat by Pulse Oximetry 99 O2 Sat by Pulse Oximetry 100 General General Appearance: Alert and In No Apparent Distress Head Head Exam: Normal Inspection, Atraumatic and Normocephalic Eyes Eye exam: PERRL and EOMI ENT ENT Exam: Mucous Membranes Moist Neck Neck Exam: Tenderness (posterior aspect, + good ROM.) Chest Chest Inspection: Normal Inspection Respiratory Respiratory Exam: Normal Lung Sounds Bilat; negative Accessory Muscle Use or Respiratory Distress Cardiovascular Cardiovascular Exam: Regular Rate, Normal Rhythm and Normal Heart Sounds Abdominal Exam Abdominal Exam: Normal Bowel Sounds and Soft; negative Tenderness Extremities Extremities Exam: Normal Inspection and Full ROM; negative Edema Back Back Exam: Tenderness (Across lumbar region. + worse with ROM.) Neurological Neurological Exam: Alert, Oriented X3 and CN II-XII Intact; negative Motor Sensory Deficit Skin Skin Exam: Warm and Dry COURSE Treatment Treatment: 62-year-old male who has been falling frequently at home, presents for evaluation. Workup initiated. Will obtain CT scans of the neck and low back region. Patient given IV fluids. 1240 -CT of the lumbar spine shows a burst fracture of L3 vertebral body, no retropulsion of fragments. CT of the cervical spine shows multiple levels of degenerative disc disease. Labs show anemia present hemoglobin 9.3. Magnesium also low with a level of 1.0. Folic acid low at 7.9. Discussed with his attending, Dr. Rincon, will admit. ROR Labs Reviewed Laboratory Results Reviewed?: Yes 10/09/23 10:30 10/09/23 10:30 Laboratory: WBC 5.2 X10^3/uL (3.6-10.0) 10/09/23 10:30 RBC 3.07 X10^6/uL (4.7-6.0) L 10/09/23 10:30 Hgb 9.3 g/dL (13.5-18.0) L 10/09/23 10:30 Hct 28.6 % (42.0-54.0) L 10/09/23 10:30 MCV 93.4 fL (80.0-100.0) 10/09/23 10:30 MCH 30.2 pg (27.0-34.0) 10/09/23 10:30 MCHC 32.3 g/dL (33.0-35.0) L 10/09/23 10:30 RDW 15.4 % (11.6-16.5) 10/09/23 10:30 Plt Count 122 X10^3/uL (150.0-450.0) L 10/09/23 10:30 MPV 8.6 fL (7.4-11.0) 10/09/23 10:30 Neut % (Auto) 79.0 % (42.0-75.0) H 10/09/23 10:30 Lymph % (Auto) 12.6 % (21.0-51.0) L 10/09/23 10:30 [place] % (Auto) 7.7 % (0.0-13.0) 10/09/23 10:30 Eos % (Auto) 0.1 % (0.9-2.9) L 10/09/23 10:30 Baso % (Auto) 0.6 % (0.2-1.0) 10/09/23 10:30 Neut # (Auto) 4.1 x10^3/uL (2.2-4.8) 10/09/23 10:30 Lymph # (Auto) 0.7 X10^3/uL (1.3-2.9) L 10/09/23 10:30 [place] # (Auto) 0.4 x10^3/uL (0.3-0.8) 10/09/23 10:30 Eos # (Auto) 0.0 x10^3/uL (0.0-0.2) 10/09/23 10:30 Baso # (Auto) 0.0 X10^3/uL (0.0-0.1) 10/09/23 10:30 Absolute Nucleated RBC 1.3 /100WBC 10/09/23 10:30 Sodium 137 mmol/L (136-145) 10/09/23 10:30 Corrected Sodium 138 mmol/L (136-145) 10/09/23 10:30 Potassium 4.2 mmol/L (3.5-5.1) 10/09/23 10:30 Chloride 97 mmol/L (98-107) L 10/09/23 10:30 Carbon Dioxide 23.9 mmol/L (21-32) 10/09/23 10:30 BUN 16 mg/dL (7-18) 10/09/23 10:30 Creatinine 1.85 mg/dL (0.70-1.30) H 10/09/23 10:30 Est GFR (MDRD) Af Amer 48 (>60) L 10/09/23 10:30 Est GFR (MDRD) Non-Af 40 (>60) L 10/09/23 10:30 Glucose 140 mg/dL (65-99) H 10/09/23 10:30 Calcium 8.7 mg/dL (8.5-10.1) 10/09/23 10:30 Corrected Calcium TNP 10/09/23 10:30 Magnesium 1.0 mg/dL (2.0-2.9) L 10/09/23 10:30 Total Bilirubin 0.90 mg/dL (0.2-1.0) 10/09/23 10:30 AST 120 Units/L (15-37) H 10/09/23 10:30 ALT 67 Units/L (12-78) 10/09/23 10:30 Alkaline Phosphatase 104 Units/L (46-116) 10/09/23 10:30 Ammonia 13 umol/L (11-32) 10/09/23 10:30 Troponin I High Sens 5.1 ng/L (4.0-60.0) 10/09/23 10:30 Total Protein 8.1 g/dL (6.4-8.2) 10/09/23 10:30 Albumin 3.4 g/dL (3.4-5.0) 10/09/23 10:30 Globulin 4.7 g/dL (2.5-4.5) H 10/09/23 10:30 Albumin/Globulin Ratio 0.7 Ratio (1.1-2.1) L 10/09/23 10:30 Lipase 28 Units/L (16-77) 10/09/23 10:30 Vitamin B12 439 pg/mL (193-986) 10/09/23 10:30 Folate 7.9 ng/mL (>8.6) L 10/09/23 10:30 XRAY XRAY Interpreted by: Both X-ray Results: EXAM: LUMBAR SPINE W/O CON HISTORY: Fall, low back pain TECHNIQUE: Axial noncontrast images with coronal and sagittal reformats. Dose reduction procedures were used with mA/kv adjusted for body size. COMPARISON: None available FINDINGS: Bones are osteopenic. The alignment is normal. Vertebral bodies are of average height with exception of a mild compression of the superior endplate of L2 which appears acute and a burst fracture of the L3 vertebral body which includes a vertical fracture through the mid vertebral body and fractures of the anterior vertebral body. There is no involvement of the pedicles or other posterior elements. There is no significant retropulsion. For the remainder of the lumbar spine the pedicles, transverse processes, and posterior elements appear intact as do the SI joints sacrum and proximal coccyx. Disc levels are evaluated as follows: T12-L1 level, L1-2 level: No evidence for compressive disc disease or compressive spondylitic change. Neural foramina are patent. The joints are normal. L2-3 level: Mild concentric disc bulging effaces the thecal sac and contributes to mild lateral recess narrowing bilaterally. The joints are normal. L3-4 level: Once again noted is the previously described burst fracture of the L3 vertebral body. Broad-based disc bulging effaces the thecal sac and contributes along with facet arthropathy and spondylitic change 2 more prominent lateral recess and some foraminal narrowing when compared to the level above. L4-5 level: Broad-based disc protrusion effaces the thecal sac and extends slightly more to the left where it contributes along with some facet arthropathy and spondylitic change to marked lateral recess and some mild foraminal narrowing. There is slightly less lateral recess and foraminal narrowing on the right at that level. L5-S1 level: Mild disc bulging abuts but does not displace the S1 nerve roots. Neural foramina are patent. The joints are normal. IMPRESSION: Burst fracture of the L3 vertebral body which includes a vertical fracture of the midportion of the vertebral body and a fracture of the anterior 2/3 of the vertebral body but no involvement of the pedicles or posterior elements and no retropulsion. Neurosurgical consultation recommended. Mild compression of the superior endplate of L2 likely acute Multilevel disc bulging and some spondylitic change which contributes to varying degrees of [id number] lateral recess narrowing and foraminal narrowing described in detail for each level above THIS IS AN ELECTRONICALLY VERIFIED FINAL REPORT 10/09/2023 12:14 PM - Electronically signed by Gregory Velazquez MD EXAMINATION: CERVICAL SPINE W/O CON HISTORY: Patient states he fell yesterday. He has pain posterior midline neck and bilateral lower back. He states he just got off balance and fell. ; . COMPARISON STUDY: None. TECHNIQUE: Images were obtained in the axial plane through the spine. Sagittal and coronal reformatted images were obtained as well. The above CT scan was done with automated exposure control and the mA and kV was adjusted to obtain quality images according to patient size. FINDINGS: There is motion artifact. Vertebral body heights and alignment are maintained throughout. Prevertebral soft tissues are maintained. Paraspinal soft tissues are unremarkable. There are no burst type fractures. There is no abnormal density to suggest epidural hematoma. There is no significant stenosis. There is no noncontrast CT evidence for traumatically herniated disc. No osteolytic or osteoblastic lesions are noted. There are anterior osteophytes with disc space narrowing from C3-4 to C6-7. There is facet arthropathy with uncovertebral joint hypertrophy and neural fora eliz narrowing of varying degrees at these levels. Straightening of lordosis suggesting muscle spasm or positioning. Lung apices are clear. No apical pneumothorax is present. IMPRESSION: No acute bony process. Multilevel degenerative changes THIS IS AN ELECTRONICALLY VERIFIED FINAL REPORT 10/09/2023 11:57 AM - Electronically signed by Cameron Gutierrez MD EXAM: BRAIN W/O CON HISTORY: Fall, head injury, neck pain, back pain TECHNIQUE: Axial noncontrast images with coronal and sagittal reformats. Dose reduction procedures were used with mA/kv adjusted for body size. COMPARISON: 04/07/2024 FINDINGS: Ventricles, cortical sulci, and other CSF spaces are enlarged consistent with generalized atrophy. There is decreased attenuation in the periventricular white matter suggestive of small-vessel vascular disease. There is an old lacunar infarct in the anterior limb of the left internal capsule, unchanged there is an old infarct in the left wei unchanged. There are no focal areas of abnormal attenuation to suggest recent CVA, hemorrhage, contusion, mass lesion, or extra-axial fluid collection. Visualized sinuses are clear. The calvarium is intact. IMPRESSION: No acute intracranial abnormality identified Generalized atrophy Diffuse relatively severe small-vessel vascular disease Old lacunar infarcts as described above THIS IS AN ELECTRONICALLY VERIFIED FINAL REPORT 10/09/2023 11:57 AM - Electronically signed by Gregory Velazquez MD EKG Rate: 60 [place]: Normal Rhythm: NSR ST: Normal Opioid Opioid Risk Tool Age (Harshad box if 16-45): No History of Preadolescent Sexual Abuse: No Total: 0 Total Score Risk Category: Low Risk Copyright: Danilo TORRES predicting aberrant behaviors Discharge Plan Diagnosis Discharge Problem: Lumbar burst fracture Discharge Plan Patient Disposition: 09 ADMITTED INPATIENT Condition: Stable Orders to Discharge Patient Discharge Orders: Transfer (Routine); Ordered 10/09/23 Ordered By: Bryant Abad
[2023-10-09] MEDS: NS 1,000 ML IV 1,000 ML IV ONE (10:33)
[2023-10-09 10:41] LABS: BASOPHILS % (AUTO) 0.6 % (0.2-1.0); EOSINOPHILS % (AUTO) 0.1 % (0.9-2.9); HEMATOCRIT 28.6 % (42.0-54.0); HEMOGLOBIN 9.3 g/dL (13.5-18.0); LYMPHOCYTES # (AUTO) 0.7 X10^3/uL (1.3-2.9); LYMPHOCYTES % (AUTO) 12.6 % (21.0-51.0); MEAN CORPUSCULAR HEMOGLOBIN 30.2 pg (27.0-34.0); MEAN CORPUSCULAR HGB CONC 32.3 g/dL (33.0-35.0); MEAN CORPUSCULAR VOLUME 93.4 fL (80.0-100.0); MEAN PLATELET VOLUME 8.6 fL (7.4-11.0); MONOCYTES # (AUTO) 0.4 x10^3/uL (0.3-0.8); MONOCYTES % (AUTO) 7.7 % (0.0-13.0); NEUTROPHILS # (AUTO) 4.1 x10^3/uL (2.2-4.8); PLATELET COUNT 122 X10^3/uL (150.0-450.0); RED BLOOD COUNT 3.07 X10^6/uL (4.7-6.0); RED CELL DISTRIBUTION WIDTH 15.4 % (11.6-16.5); WHITE BLOOD COUNT 5.2 X10^3/uL (3.6-10.0)
--- NOTE | 2023-10-09 10:43 | EKG ---
Test Reason : fall Blood Pressure : */* mmHG Vent. Rate : 60 BPM Atrial Rate : 60 BPM P-R Int : 174 ms QRS Dur : 90 ms QT Int : 460 ms P-R-T Axes : 72 31 50 degrees QTc Int : 460 ms Normal sinus rhythm Normal ECG When compared with ECG of 10-APR-2023 12:13, Vent. rate has decreased BY 34 BPM Non-specific change in ST segment in Inferior leads Nonspecific T wave abnormality no longer evident in Inferior leads T wave inversion no longer evident in Anterior leads Confirmed by Philippe Kunz MD ([id number]) on 10/09/2023 11:29:39 AM Referred By: Confirmed By: Philippe Kunz MD
[2023-10-09 10:55] LABS: AMMONIA 13 umol/L (11-32)
[2023-10-09 11:03] LABS: ALANINE AMINOTRANSFERASE 67 Units/L (12-78); ALBUMIN 3.4 g/dL (3.4-5.0); ALKALINE PHOSPHATASE 104 Units/L (46-116); ASPARTATE AMINO TRANSFERASE 120 Units/L (15-37); BLOOD UREA NITROGEN 16 mg/dL (7-18); CALCIUM 8.7 mg/dL (8.5-10.1); CARBON DIOXIDE 23.9 mmol/L (21-32); CHLORIDE 97 mmol/L (98-107); COR NA(FOR HYPERGLY) 138 mmol/L (136-145); CREATININE 1.85 mg/dL (0.70-1.30); GLUCOSE 140 mg/dL (65-99); LIPASE 28 Units/L (16-77); SODIUM 137 mmol/L (136-145); TOTAL PROTEIN 8.1 g/dL (6.4-8.2); eGFR NON BLACK RACES 40 (>60)
[2023-10-09 11:12] LABS: POTASSIUM 4.2 mmol/L (3.5-5.1)
--- NOTE | 2023-10-09 12:00 | CT ---
EXAM:BRAIN W/O CONHISTORY:Fall, head injury, neck pain, back painTECHNIQUE:Axial noncontrast images with coronal and sagittal reformats. Dose reduction procedures were used with mA/kv adjusted for body size.COMPARISON:04/07/2024FINDINGS:Ventr icles, cortical sulci, and other CSF spaces are enlarged consistent with generalized atrophy. There is decreased attenuation in the periventricular white matter suggestive of small-vessel vascular disease. There is an old lacunar infarct in the anterior limb of the left internal capsule, unchanged there is an old infarct in the left ewi unchanged. There are no focal areas of abnormal attenuation to suggest recent CVA, hemorrhage, contusion, mass lesion, or extra-axial fluid collection. Visualized sinuses are clear. The calvarium is intact.IMPRESSION:No acute intracranial abnormality identifiedGeneralized atrophyDiffuse relatively severe small-vessel vascular diseaseOld lacunar infarcts as described aboveTHIS IS AN ELECTRONICALLY VERIFIED FINAL REPORT10/09/2023 11:57 AM - Electronically signed by Gregory Velazquez MD
--- NOTE | 2023-10-09 12:00 | CT ---
EXAMINATION:CERVICAL SPINE W/O CONHISTORY:Patient states he fell yesterday. He has pain posterior midline neck and bilateral lower back. He states he just got off balance and fell. ; .COMPARISON STUDY:None.TECHNIQUE:Images were obtained in the axial plane through the spine. Sagittal and coronal reformatted images were obtained as well. The above CT scan was done with automated exposure control and the mA and kV was adjusted to obtain quality images according to patient size.FINDINGS:There is motion artifact. Vertebral body heights and alignment are maintained throughout. Prevertebral soft tissues are maintained. Paraspinal soft tissues are unremarkable. There are no burst type fractures. There is no abnormal density to suggest epidural hematoma. There is no significant stenosis. There is no noncontrast CT evidence for traumatically herniated disc. No osteolytic or osteoblastic lesions are noted.There are anterior osteophytes with disc space narrowing from C3-4 to C6-7. There is facet arthropathy with uncovertebral joint hypertrophy and neural foraminal narrowing of varying degrees at these levels. Straightening of lordosis suggesting muscle spasm or positioning.Lung apices are clear. No apical pneumothorax is present.IMPRESSION:No acute bony process.Multilevel degenerative changesTHIS IS AN ELECTRONICALLY VERIFIED FINAL REPORT10/09/2023 11:57 AM - Electronically signed by Cameron Gutierrez MD
--- NOTE | 2023-10-09 12:18 | CT ---
EXAM:LUMBAR SPINE W/O CONHISTORY:Fall, low back painTECHNIQUE:Axial noncontrast images with coronal and sagittal reformats. Dose reduction procedures were used with mA/kv adjusted for body size.COMPARISON:None availableFINDINGS:Bones are osteopenic. The alignment is normal. Vertebral bodies are of average height with exception of a mild compression of the superior endplate of L2 which appears acute and a burst fracture of the L3 vertebral body which includes a vertical fracture through the mid vertebral body and fractures of the anterior vertebral body. There is no involvement of the pedicles or other posterior elements. There is no significant retropulsion. For the remainder of the lumbar spine the pedicles, transverse processes, and posterior elements appear intact as do the SI joints sacrum and proximal coccyx. Disc levels are evaluated as follows:T12-L1 level, L1-2 level: No evidence for compressive disc disease or compressive spondylitic change. Neural foramina are patent. The joints are normal.L2-3 level: Mild concentric disc bulging effaces the thecal sac and contributes to mild lateral recess narrowing bilaterally. The joints are normal.L3-4 level: Once again noted is the previously described burst fracture of the L3 vertebral body. Broad-based disc bulging effaces the thecal sac and contributes along with facet arthropathy and spondylitic change 2 more prominent lateral recess and some foraminal narrowing when compared to the level above.L4-5 level: Broad-based disc protrusion effaces the thecal sac and extends slightly more to the left where it contributes along with some facet arthropathy and spondylitic change to marked lateral recess and some mild foraminal narrowing. There is slightly less lateral recess and foraminal narrowing on the right at that level.L5-S1 level: Mild disc bulging abuts but does not displace the S1 nerve roots. Neural foramina are patent. The joints are normal.IMPRESSION:Burst fracture of the L3 vertebral body which includes a vertical fracture of the midportion of the vertebral body and a fracture of the anterior 2/3 of the vertebral body but no involvement of the pedicles or posterior elements and no retropulsion. Neurosurgical consultation recommended.Mild compression of the superior endplate of L2 likely acuteMultilevel disc bulging and some spondylitic change which contributes to varying degrees of [id number] lateral recess narrowing and foraminal narrowing described in detail for each level aboveTHIS IS AN ELECTRONICALLY VERIFIED FINAL REPORT10/09/2023 12:14 PM - Electronically signed by Gregory Velazquez MD
--- NOTE | 2023-10-09 12:38 | RAD ---
EXAM:CHEST, 1 VIEWHISTORY:Patient states he fell yesterday. He has pain posterior midline neck and bilateral lower back. He states he just got off balance and fell. ;COMPARISON:04/10/2020FINDINGS:The trachea is midline. The cardiac silhouette is unremarkable . The lungs are clear without focal infiltrate or effusion. The bony thorax is unremarkable.IMPRESSION:No acute cardiopulmonary disease.THIS IS AN ELECTRONICALLY VERIFIED FINAL REPORT10/09/2023 12:35 PM - Electronically signed by Jai Ang MD
[2023-10-09] MEDS ORDERED: CONSULT PHARMACY - POTASSIUM & MAGNESIUM XX SCH (14:19)
[2023-10-09] MEDS ORDERED: ZOFRAN INJ 4 MG VIAL IVP PRN (14:19)
[2023-10-09 14:39] VITALS: BMI 23.6
[2023-10-09] MEDS ORDERED: MILK OF MAGNESIA PO PRN (15:47)
[2023-10-09] MEDS ORDERED: LIBRIUM PO PRN (15:47)
[2023-10-09] MEDS ORDERED: MAALOX or MYLANTA PO PRN (15:47)
[2023-10-09] MEDS ORDERED: KAOPECTATE (NEW FORMULA) PO PRN (15:47)
[2023-10-09] MEDS ORDERED: PHENOBARBITAL SODIUM INJ 65 MG VIAL IM PRN (15:47)
[2023-10-09 15:52] LABS: BILIRUBIN,URINE NEGATIVE (NEGATIVE); BLOOD/HEMOGLOBIN,URINE 1+ (NEGATIVE); GLUCOSE, URINE NEGATIVE (NEGATIVE); KETONES,URINE 3+ (NEGATIVE); LEUKOCYTE ESTERASE ,URINE 1+ (NEGATIVE); NITRITES,URINE NEGATIVE (NEGATIVE); PROTEIN,URINE 2+ (NEGATIVE); UROBILINOGEN,URINE 2+ (NORMAL)
[2023-10-09] MEDS: THIAMINE HCL INJ IM SCH (15:56)
[2023-10-09 16:13] LABS: APPEARANCE,URINE SLIGHTLY HAZY (CLEAR); BACTERIA,URINE TRACE /HPF (NEGATIVE); COLOR,URINE DARK YELLOW (YELLOW); RBC,URINE 0-2 /HPF (0-3); SQUAMOUS EPITHELIAL CELL,UR RARE /HPF (NEGATIVE)
[2023-10-09 16:14] LABS: GRANULAR CASTS,URINE RARE /LPF (NEGATIVE); HYALINE CASTS, URINE NUMEROUS /LPF (NEGATIVE)
[2023-10-09] MEDS: PHENOBARBITAL TAB 30 MG (32.4MG) PO SCH (17:01)
[2023-10-09] MEDS: AMBIEN PO SCH (21:20)
[2023-10-10 06:04] LABS: ALBUMIN 2.8 g/dL (3.4-5.0); CALCIUM 8.2 mg/dL (8.5-10.1); CARBON DIOXIDE 25.3 mmol/L (21-32); COR CA(FOR HYPOALB) 9.2 mg/dL (8.5-10.1); CREATININE 1.56 mg/dL (0.70-1.30); MAGNESIUM 2.8 mg/dL (2.0-2.9); POTASSIUM 3.5 mmol/L (3.5-5.1); TOTAL PROTEIN 6.8 g/dL (6.4-8.2)
[2023-10-10 06:06] LABS: BASOPHILS % (AUTO) 0.4 % (0.2-1.0); EOSINOPHILS % (AUTO) 0.5 % (0.9-2.9); HEMATOCRIT 24.8 % (42.0-54.0); HEMOGLOBIN 8.1 g/dL (13.5-18.0); LYMPHOCYTES # (AUTO) 0.8 X10^3/uL (1.3-2.9); LYMPHOCYTES % (AUTO) 26.6 % (21.0-51.0); MEAN CORPUSCULAR HEMOGLOBIN 30.2 pg (27.0-34.0); MEAN CORPUSCULAR HGB CONC 32.7 g/dL (33.0-35.0); MEAN CORPUSCULAR VOLUME 92.2 fL (80.0-100.0); MEAN PLATELET VOLUME 9.5 fL (7.4-11.0); MONOCYTES # (AUTO) 0.3 x10^3/uL (0.3-0.8); MONOCYTES % (AUTO) 8.9 % (0.0-13.0); NEUTROPHILS # (AUTO) 1.9 x10^3/uL (2.2-4.8); NEUTROPHILS % (AUTO) 63.6 % (42.0-75.0); PLATELET COUNT 97 X10^3/uL (150.0-450.0); RED BLOOD COUNT 2.69 X10^6/uL (4.7-6.0); RED CELL DISTRIBUTION WIDTH 15.2 % (11.6-16.5)
[2023-10-10] MEDS ORDERED: CONSULT PHARMACY - POTASSIUM & MAGNESIUM XX SCH (07:00)
[2023-10-10] MEDS: MICRO K EXTEN CAP 10 MEQ PO SCH (09:40)
[2023-10-10] MEDS: NS 1/2 1,000 ML IV 1,000 ML IV SCH (16:09)
[2023-10-10] MEDS: NS 1/2 1,000 ML IV 1,000 ML IV ONE (18:04)
--- NOTE | 2023-10-10 19:12 | DR.H&P ---
H&P History & Physical for Day of: H&P Date: 10/09/23 Chief Complaint Chief Complaint: The patient fell, and it resulted in severe back pain. History of Present Illness History of Present Illness: This is a pleasant 62-year-old Black male, well- known to me. The patient has been experiencing frequent falls at home recently. He has a long history of alcoholism. He fell yesterday and also today. He is experiencing a lot of pain in the left neck and lower back. His spouse believes that his falls are due to combining alcohol with pain medication. The patient states that he sometimes just trips and falls. He consumes alcohol daily. He denies having any fever, chills, upper respiratory symptoms, or bowel or bladder issues. He is experiencing generalized weakness and pain in the neck and lower back region. The pain worsens with movement, and nothing makes it better. A CT scan of the patient's lumbar spine was done and shows a burst fracture of the L3 vertebral body, which includes a vertical fracture of the midportion of the vertebral body and a fracture of the anterior 2/3 of the vertebral body but no involvement of the pedicles or posterior elements and no retropulsion. Neurosurgical consultation is recommended. It also shows a mild compression of the superior endplate of L2, likely an acute multilevel disc bulging, and some spondylitic change, which contributes to varying degrees of [id number] lateral recess narrowing and foraminal narrowing described in detail for each level above. The CT scan of the patient's brain shows severe mild to moderate vascular disease and cerebral atrophy. There is no acute bleeds. X-rays of the lungs are clear, and a CT of the cervical spine shows degenerative changes throughout. This was discussed with the patient and we told him that once we get him detoxed off of alcohol we will have to get a neurosurgical consultation and discuss what we need to do in the future about his fractures. Past Medical History Past Medical History: Anxiety, Dyslipidemia, GERD and Hypertension Additional Medical History: HIV positive, chronic low back pain and anxiety, alcohol use disorder Past Surgical History Surgical History: Other Family History Family Medical History: Hypertension Social History Does patient currently use any type of tobacco product: No Have you used tobacco products in the last 12 months: No Type of Tobacco Use: None Does any household member use tobacco: No Alcohol Use: Heavy Drug Use: None Medications Home Medications: Home Medications Medication Instructions Recorded Confirmed Type elviteg 150 mg-cob 150 mg-emtricit 150 tab PO QDAY 01/15/22 10/09/23 History 200 mg-tenofo alafenam 10 mg tablet (Genvoya) folic acid 400 mcg tablet 0.4 mg PO QDAY 10/09/23 10/09/23 History thiamine mononitrate (vit B1) 100 100 mg PO QDAY 10/09/23 10/09/23 History mg tablet (Vitamin B-1 (mononitrate)) Allergies Allergies Allergy/AdvReac Type Severity Reaction Status Date / Time No Known Drug Allergies Allergy Unknown Verified 10/09/23 10:22 Labs 10/10/23 05:23 10/10/23 05:23 Labs: Laboratory WBC 3.0 X10^3/uL (3.6-10.0) L 10/10/23 05:23 RBC 2.69 X10^6/uL (4.7-6.0) L 10/10/23 05:23 Hgb 8.1 g/dL (13.5-18.0) L 10/10/23 05:23 Hct 24.8 % (42.0-54.0) L 10/10/23 05:23 MCV 92.2 fL (80.0-100.0) 10/10/23 05:23 MCH 30.2 pg (27.0-34.0) 10/10/23 05:23 MCHC 32.7 g/dL (33.0-35.0) L 10/10/23 05:23 RDW 15.2 % (11.6-16.5) 10/10/23 05:23 Plt Count 97 X10^3/uL (150.0-450.0) L 10/10/23 05:23 MPV 9.5 fL (7.4-11.0) 10/10/23 05:23 Neut % (Auto) 63.6 % (42.0-75.0) 10/10/23 05:23 Lymph % (Auto) 26.6 % (21.0-51.0) 10/10/23 05:23 [place] % (Auto) 8.9 % (0.0-13.0) 10/10/23 05:23 Eos % (Auto) 0.5 % (0.9-2.9) L 10/10/23 05:23 Baso % (Auto) 0.4 % (0.2-1.0) 10/10/23 05:23 Neut # (Auto) 1.9 x10^3/uL (2.2-4.8) L 10/10/23 05:23 Lymph # (Auto) 0.8 X10^3/uL (1.3-2.9) L 10/10/23 05:23 [place] # (Auto) 0.3 x10^3/uL (0.3-0.8) 10/10/23 05:23 Eos # (Auto) 0.0 x10^3/uL (0.0-0.2) 10/10/23 05:23 Baso # (Auto) 0.0 X10^3/uL (0.0-0.1) 10/10/23 05:23 Absolute Nucleated RBC 0.8 /100WBC 10/10/23 05:23 Sodium 137 mmol/L (136-145) 10/10/23 05:23 Corrected Sodium 137 mmol/L (136-145) 10/10/23 05:23 Potassium 3.5 mmol/L (3.5-5.1) 10/10/23 05:23 Chloride 103 mmol/L (98-107) 10/10/23 05:23 Carbon Dioxide 25.3 mmol/L (21-32) 10/10/23 05:23 BUN 18 mg/dL (7-18) 10/10/23 05:23 Creatinine 1.56 mg/dL (0.70-1.30) H 10/10/23 05:23 Est GFR (MDRD) Af Amer 58 (>60) L 10/10/23 05:23 Est GFR (MDRD) Non-Af 48 (>60) L 10/10/23 05:23 Glucose 120 mg/dL (65-99) H 10/10/23 05:23 Calcium 8.2 mg/dL (8.5-10.1) L 10/10/23 05:23 Corrected Calcium 9.2 mg/dL (8.5-10.1) 10/10/23 05:23 Magnesium 2.8 mg/dL (2.0-2.9) 10/10/23 05:23 Total Bilirubin 0.60 mg/dL (0.2-1.0) 10/10/23 05:23 AST 82 Units/L (15-37) H 10/10/23 05:23 ALT 46 Units/L (12-78) 10/10/23 05:23 Alkaline Phosphatase 97 Units/L (46-116) 10/10/23 05:23 Ammonia 13 umol/L (11-32) 10/09/23 10:30 Troponin I High Sens 5.1 ng/L (4.0-60.0) 10/09/23 10:30 Total Protein 6.8 g/dL (6.4-8.2) 10/10/23 05:23 Albumin 2.8 g/dL (3.4-5.0) L 10/10/23 05:23 Globulin 4.0 g/dL (2.5-4.5) 10/10/23 05:23 Albumin/Globulin Ratio 0.7 Ratio (1.1-2.1) L 10/10/23 05:23 Lipase 28 Units/L (16-77) 10/09/23 10:30 Vitamin B12 439 pg/mL (193-986) 10/09/23 10:30 Folate 7.9 ng/mL (>8.6) L 10/09/23 10:30 Specimen Type Clean catch urine 10/09/23 15:40 Urine Color Dark yellow (YELLOW) 10/09/23 15:40 Urine Appearance Slightly hazy (CLEAR) 10/09/23 15:40 Urine pH 6.0 (5.0 - 8.0) 10/09/23 15:40 Ur Specific [place] 1.025 (1.000-1.030) 10/09/23 15:40 Urine Protein 2+ (NEGATIVE) 10/09/23 15:40 Urine Glucose (UA) Negative (NEGATIVE) 10/09/23 15:40 Urine Ketones 3+ (NEGATIVE) 10/09/23 15:40 Urine Blood 1+ (NEGATIVE) 10/09/23 15:40 Urine Nitrite Negative (NEGATIVE) 10/09/23 15:40 Urine Bilirubin Negative (NEGATIVE) 10/09/23 15:40 Urine Urobilinogen 2+ (NORMAL) 10/09/23 15:40 Ur Leukocyte Esterase 1+ (NEGATIVE) 10/09/23 15:40 Urine RBC 0-2 /HPF (0-3) 10/09/23 15:40 Urine WBC 3-5 /HPF (0-5) 10/09/23 15:40 Ur Squamous Epith Cells Rare /HPF (NEGATIVE) 10/09/23 15:40 Amorphous Sediment 1+ /HPF (NEGATIVE) 10/09/23 15:40 Urine Bacteria Trace /HPF (NEGATIVE) 10/09/23 15:40 Hyaline Casts Numerous /LPF (NEGATIVE) 10/09/23 15:40 Granular Casts Rare /LPF (NEGATIVE) 10/09/23 15:40 Ur Culture Indicated? No/not indicated 10/09/23 15:40 Urine Opiates Screen Negative (NEG=<300) 10/09/23 15:40 Urine Methadone Screen Negative (NEG=<300) 10/09/23 15:40 Ur Barbiturates Screen Negative (NEG=<200) 10/09/23 15:40 Ur Phencyclidine Scrn Negative (NEG=<25) 10/09/23 15:40 Ur Amphetamines Screen Negative (NEG=<1000) 10/09/23 15:40 U Benzodiazepines Scrn Negative (NEG=<200) 10/09/23 15:40 Urine Cocaine Screen Negative (NEG=<300) 10/09/23 15:40 U Marijuana (THC) Screen Negative (NEG=<50) 10/09/23 15:40 Ethyl Alcohol mg/dL < 3 mg/dL (0-19.9) 10/09/23 10:30 Review of Systems Constitutional: Weakness and Malaise Eyes: No Symptoms Reported ENT: No Symptoms Reported Respiratory: No Symptoms Reported Cardiovascular: No Symptoms Reported Gastrointestinal: No Symptoms Reported Genitourinary: No Symptoms Reported Musculoskeletal: Back Pain Skin: No Symptoms Reported Neurological: Weakness Physical Exam Vital Signs: Vital Signs Temperature 97.6 F Temperature 98.7 F Pulse Rate [Left] 78 Pulse Rate [Left] 81 Respiratory Rate 17 Respiratory Rate 18 Blood Pressure [Right Arm] 141/81 Blood Pressure [Right Arm] 128/65 O2 Sat by Pulse Oximetry 100 O2 Sat by Pulse Oximetry 99 Oriented: Normal Eyes: Normal Ear: Normal Nose: Normal Throat: Normal Respiratory: Clear Throughout Cardiovascular: Normal : Normal Auscultation: Bowel Sounds: Normal Palpation: Normal Tenderness: Normal Skin: Decreased Turgur Musculoskeletal: Back:Lumbar Psychiatric: Depression Mood Description: Depressed and Flat Affect: Depressed and Quiet Speech Pattern: Clear and Appropriate; negative Unclear, Inappropriate, Delayed, Slurred, Excessive, Aphasic or Unable to speak Assessment/Plan (1) Lumbar burst fracture: Status: Acute Plan: We will plan [place] doing [place] [facility] [place] (2) Depression with anxiety: Status: Chronic Plan: I will start the patient on fluoxetine 40 mg daily. (3) Alcohol use disorder: Status: Acute Plan: Alcohol detox protocol. (4) Mild hypertension: Status: None Plan: We will monitor the patient's blood pressure and heart rate and treat accordingly. (5) HIV positive: Status: Chronic Plan: We will resume Genvoya 150 mg p.o. daily. (6) Falling: Status: Acute Plan: We will detox the patient off alcohol and we will hold off on physical therapy at this time until we can get a neurosurgical consultation [place]med[place] [facility] [place] (7) Anemia: Qualifiers: Anemia type: iron deficiency Iron deficiency anemia type: inadequate dietary iron intake Qualified Code(s): D50.8 - Other iron deficiency anemias Status: Chronic Plan: Follow daily hemoglobins. Transfuse if needed. We will check anemia profile as well. (8) Thrombocytopenia: Status: Acute Plan: Follow daily CBCs to monitor platelet counts. Review H&P Reviewed: Yes Patient was examined?: Yes
--- NOTE | 2023-10-10 19:17 | PCM.PROG ---
Progress Note Progress Note for Day of Date of Exam: 10/10/23 Subjective Subjective: The patient is alert and awake this morning. He states that he is still hurting but not quite as bad. The patient's hemoglobin went from 9.3-8.1. His platelet count went from 122,000-97,000 this morning. The patient's blood pressure is stable at 138/80 this morning. We will continue to detox him off alcohol and plan on doing a neurosurgical telemedicine consultation with [facility] [place] at the first of next week for his burst fracture of L3. In the meantime we will have him stay in bed and not do any physical therapy at this time. Past Medical Family Social History Allergies: Allergies No Known Drug Allergies Allergy (Unknown, Verified 10/09/23 10:22) Onset Date: 01/31/2020 Review of Systems ROS: No change since H&P Vital Signs and I&O's Vital Signs: Vital Signs Temperature 97.6 F Temperature 98.7 F Pulse Rate [Left] 78 Pulse Rate [Left] 81 Respiratory Rate 17 Respiratory Rate 18 Blood Pressure [Right Arm] 141/81 Blood Pressure [Right Arm] 128/65 O2 Sat by Pulse Oximetry 100 O2 Sat by Pulse Oximetry 99 Intake and Output: Intake & Output 10/08/23 10/09/23 10/10/23 10/11/23 11:59 11:59 11:59 11:59 Intake Total 800 / 800 560 / 560 Output Total 300 / 300 800 / 800 Balance 500 / 500 -240 / -240 Physical Exam Oriented: Normal Eyes: Normal Ear: Normal Nose: Normal Throat: Normal Respiratory: Normal Cardiovascular: Normal : Normal Auscultation: Bowel Sounds: Normal Tenderness: Normal Skin: Decreased Turgur Musculoskeletal: Back:Lumbar Psychiatric: Depression Mood Description: Depressed and Flat Affect: Depressed and Quiet Speech Pattern: Clear and Appropriate; negative Unclear, Inappropriate, Delayed, Slurred, Excessive, Aphasic or Unable to speak Laboratory and Diagnostics 10/10/23 05:23 10/10/23 05:23 Labs: Laboratory WBC 3.0 X10^3/uL (3.6-10.0) L 10/10/23 05:23 RBC 2.69 X10^6/uL (4.7-6.0) L 10/10/23 05:23 Hgb 8.1 g/dL (13.5-18.0) L 10/10/23 05:23 Hct 24.8 % (42.0-54.0) L 10/10/23 05:23 MCV 92.2 fL (80.0-100.0) 10/10/23 05:23 MCH 30.2 pg (27.0-34.0) 10/10/23 05:23 MCHC 32.7 g/dL (33.0-35.0) L 10/10/23 05:23 RDW 15.2 % (11.6-16.5) 10/10/23 05:23 Plt Count 97 X10^3/uL (150.0-450.0) L 10/10/23 05:23 MPV 9.5 fL (7.4-11.0) 10/10/23 05:23 Neut % (Auto) 63.6 % (42.0-75.0) 10/10/23 05:23 Lymph % (Auto) 26.6 % (21.0-51.0) 10/10/23 05:23 [place] % (Auto) 8.9 % (0.0-13.0) 10/10/23 05:23 Eos % (Auto) 0.5 % (0.9-2.9) L 10/10/23 05:23 Baso % (Auto) 0.4 % (0.2-1.0) 10/10/23 05:23 Neut # (Auto) 1.9 x10^3/uL (2.2-4.8) L 10/10/23 05:23 Lymph # (Auto) 0.8 X10^3/uL (1.3-2.9) L 10/10/23 05:23 [place] # (Auto) 0.3 x10^3/uL (0.3-0.8) 10/10/23 05:23 Eos # (Auto) 0.0 x10^3/uL (0.0-0.2) 10/10/23 05:23 Baso # (Auto) 0.0 X10^3/uL (0.0-0.1) 10/10/23 05:23 Absolute Nucleated RBC 0.8 /100WBC 10/10/23 05:23 Sodium 137 mmol/L (136-145) 10/10/23 05:23 Corrected Sodium 137 mmol/L (136-145) 10/10/23 05:23 Potassium 3.5 mmol/L (3.5-5.1) 10/10/23 05:23 Chloride 103 mmol/L (98-107) 10/10/23 05:23 Carbon Dioxide 25.3 mmol/L (21-32) 10/10/23 05:23 BUN 18 mg/dL (7-18) 10/10/23 05:23 Creatinine 1.56 mg/dL (0.70-1.30) H 10/10/23 05:23 Est GFR (MDRD) Af Amer 58 (>60) L 10/10/23 05:23 Est GFR (MDRD) Non-Af 48 (>60) L 10/10/23 05:23 Glucose 120 mg/dL (65-99) H 10/10/23 05:23 Calcium 8.2 mg/dL (8.5-10.1) L 10/10/23 05:23 Corrected Calcium 9.2 mg/dL (8.5-10.1) 10/10/23 05:23 Magnesium 2.8 mg/dL (2.0-2.9) 10/10/23 05:23 Total Bilirubin 0.60 mg/dL (0.2-1.0) 10/10/23 05:23 AST 82 Units/L (15-37) H 10/10/23 05:23 ALT 46 Units/L (12-78) 10/10/23 05:23 Alkaline Phosphatase 97 Units/L (46-116) 10/10/23 05:23 Ammonia 13 umol/L (11-32) 10/09/23 10:30 Troponin I High Sens 5.1 ng/L (4.0-60.0) 10/09/23 10:30 Total Protein 6.8 g/dL (6.4-8.2) 10/10/23 05:23 Albumin 2.8 g/dL (3.4-5.0) L 10/10/23 05:23 Globulin 4.0 g/dL (2.5-4.5) 10/10/23 05:23 Albumin/Globulin Ratio 0.7 Ratio (1.1-2.1) L 10/10/23 05:23 Lipase 28 Units/L (16-77) 10/09/23 10:30 Vitamin B12 439 pg/mL (193-986) 10/09/23 10:30 Folate 7.9 ng/mL (>8.6) L 10/09/23 10:30 Specimen Type Clean catch urine 10/09/23 15:40 Urine Color Dark yellow (YELLOW) 10/09/23 15:40 Urine Appearance Slightly hazy (CLEAR) 10/09/23 15:40 Urine pH 6.0 (5.0 - 8.0) 10/09/23 15:40 Ur Specific [place] 1.025 (1.000-1.030) 10/09/23 15:40 Urine Protein 2+ (NEGATIVE) 10/09/23 15:40 Urine Glucose (UA) Negative (NEGATIVE) 10/09/23 15:40 Urine Ketones 3+ (NEGATIVE) 10/09/23 15:40 Urine Blood 1+ (NEGATIVE) 10/09/23 15:40 Urine Nitrite Negative (NEGATIVE) 10/09/23 15:40 Urine Bilirubin Negative (NEGATIVE) 10/09/23 15:40 Urine Urobilinogen 2+ (NORMAL) 10/09/23 15:40 Ur Leukocyte Esterase 1+ (NEGATIVE) 10/09/23 15:40 Urine RBC 0-2 /HPF (0-3) 10/09/23 15:40 Urine WBC 3-5 /HPF (0-5) 10/09/23 15:40 Ur Squamous Epith Cells Rare /HPF (NEGATIVE) 10/09/23 15:40 Amorphous Sediment 1+ /HPF (NEGATIVE) 10/09/23 15:40 Urine Bacteria Trace /HPF (NEGATIVE) 10/09/23 15:40 Hyaline Casts Numerous /LPF (NEGATIVE) 10/09/23 15:40 Granular Casts Rare /LPF (NEGATIVE) 10/09/23 15:40 Ur Culture Indicated? No/not indicated 10/09/23 15:40 Urine Opiates Screen Negative (NEG=<300) 10/09/23 15:40 Urine Methadone Screen Negative (NEG=<300) 10/09/23 15:40 Ur Barbiturates Screen Negative (NEG=<200) 10/09/23 15:40 Ur Phencyclidine Scrn Negative (NEG=<25) 10/09/23 15:40 Ur Amphetamines Screen Negative (NEG=<1000) 10/09/23 15:40 U Benzodiazepines Scrn Negative (NEG=<200) 10/09/23 15:40 Urine Cocaine Screen Negative (NEG=<300) 10/09/23 15:40 U Marijuana (THC) Screen Negative (NEG=<50) 10/09/23 15:40 Ethyl Alcohol mg/dL < 3 mg/dL (0-19.9) 10/09/23 10:30 Radiology Reviewed: Yes Plan (1) Lumbar burst fracture: Status: Acute Plan: We will plan on doing a neurosurgical patient over telemetry with [facility] [place] at the first of next week. (2) Depression with anxiety: Status: Chronic Plan: I will start the patient on fluoxetine 40 mg daily. (3) Alcohol use disorder: Status: Acute Plan: Alcohol detox protocol. (4) Mild hypertension: Status: None Plan: We will monitor the patient's blood pressure and heart rate and treat accordingly. (5) HIV positive: Status: Chronic Plan: We will resume Genvoya 150 mg p.o. daily. (6) Falling: Status: Acute Plan: We will detox the patient off alcohol and we will hold off on physical therapy at this time until we can get a neurosurgical consultation through telemedicine with [facility] [place]. (7) Anemia: Status: Chronic Qualifiers: Anemia type: iron deficiency Iron deficiency anemia type: inadequate dietary iron intake Qualified Code(s): D50.8 - Other iron deficiency anemias Plan: Follow daily hemoglobins. Transfuse if needed. We will check anemia profile as well. (8) Thrombocytopenia: Status: Acute Plan: Follow daily CBCs to monitor platelet counts.
[2023-10-10] MEDS: NEURONTIN TAB 600 MG PO SCH (21:31)
[2023-10-10] MEDS: MEGACE PO SCH (21:31)
--- NOTE | 2023-10-11 05:34 | EKG ---
Test Reason : hypertension protocol Blood Pressure : */* mmHG Vent. Rate : 80 BPM Atrial Rate : 80 BPM P-R Int : 154 ms QRS Dur : 86 ms QT Int : 400 ms P-R-T Axes : 86 22 32 degrees QTc Int : 461 ms Normal sinus rhythm Possible Left atrial enlargement Septal infarct , age undetermined Abnormal ECG When compared with ECG of 09-OCT-2023 10:33, Septal infarct is now present Confirmed by Philippe Kunz MD ([id number]) on 10/11/2023 6:41:29 AM Referred By: Confirmed By: Philippe Kunz MD
[2023-10-11] MEDS: CATAPRES TAB 0.1 MG PO ONE (05:54)
[2023-10-11 06:44] LABS: BASOPHILS % (AUTO) 0.2 % (0.2-1.0); EOSINOPHILS % (AUTO) 0.7 % (0.9-2.9); HEMATOCRIT 25.9 % (42.0-54.0); HEMOGLOBIN 8.4 g/dL (13.5-18.0); LYMPHOCYTES # (AUTO) 1.2 X10^3/uL (1.3-2.9); LYMPHOCYTES % (AUTO) 33.6 % (21.0-51.0); MEAN CORPUSCULAR HEMOGLOBIN 30.3 pg (27.0-34.0); MEAN CORPUSCULAR HGB CONC 32.7 g/dL (33.0-35.0); MEAN CORPUSCULAR VOLUME 92.9 fL (80.0-100.0); MEAN PLATELET VOLUME 9.6 fL (7.4-11.0); MONOCYTES # (AUTO) 0.4 x10^3/uL (0.3-0.8); MONOCYTES % (AUTO) 10.9 % (0.0-13.0); NEUTROPHILS # (AUTO) 1.9 x10^3/uL (2.2-4.8); NEUTROPHILS % (AUTO) 54.6 % (42.0-75.0); PLATELET COUNT 101 X10^3/uL (150.0-450.0); RED BLOOD COUNT 2.78 X10^6/uL (4.7-6.0); WHITE BLOOD COUNT 3.6 X10^3/uL (3.6-10.0)
[2023-10-11 06:58] LABS: ALANINE AMINOTRANSFERASE 53 Units/L (12-78); ALBUMIN 3.1 g/dL (3.4-5.0); ALKALINE PHOSPHATASE 126 Units/L (46-116); ASPARTATE AMINO TRANSFERASE 129 Units/L (15-37); BLOOD UREA NITROGEN 11 mg/dL (7-18); CALCIUM 8.6 mg/dL (8.5-10.1); CHLORIDE 103 mmol/L (98-107); COR CA(FOR HYPOALB) 9.3 mg/dL (8.5-10.1); CREATININE 1.27 mg/dL (0.70-1.30); GLUCOSE 94 mg/dL (65-99); SODIUM 140 mmol/L (136-145); TOTAL PROTEIN 7.4 g/dL (6.4-8.2); eGFR NON BLACK RACES > 60 (>60)
[2023-10-11] MEDS: NS 1/2 1,000 ML IV 1,000 ML IV ONE (07:29)
[2023-10-11] MEDS ORDERED: CONSULT PHARMACY - POTASSIUM & MAGNESIUM XX SCH (08:00)
[2023-10-11] MEDS: VITAMIN B-1 PO SCH (08:36)
[2023-10-11] MEDS: K-DUR TAB 20 MEQ PO ONE ×2 (08:37→11:00)
[2023-10-11] MEDS: FOLIC ACID 400 MCG PO SCH (08:52)
[2023-10-11] MEDS: MORPHINE SULFATE INJ 4 MG IVP PRN (16:15)
--- NOTE | 2023-10-11 16:50 | DR.PROGNOT ---
HOSPITAL PROGRESS NOTE Progress Note for Day of: Progress Note Date: 10/11/23 Chief Complaint Chief Complaint: Patient seen with nursing for daily rounds. Reports back pain seems slightly better than yesterday. Still not get out of bed much. Nurses report no acute overnight events. Patient is agreeable to a neurosurgical consult with [facility] or local interventional pain management referral. He wants to try to avoid "being cut on." Past Medical Family Social History Allergies: Allergies No Known Drug Allergies Allergy (Unknown, Verified 10/09/23 10:22) Onset Date: 01/31/2020 Review Of Systems ROS: No change since H&P Vital Signs Vital Signs: Vital Signs Temperature 98.4 F Temperature 97.7 F Pulse Rate [Left] 90 Pulse Rate [Left] 97 Respiratory Rate 18 Respiratory Rate 18 Respiratory Rate 17 Blood Pressure [Left Arm] 159/97 Blood Pressure [Left Arm] 177/99 O2 Sat by Pulse Oximetry 98 O2 Sat by Pulse Oximetry 100 Physical Exam Oriented: Normal Eyes: Normal Ear: Normal Nose: Normal Throat: Normal Respiratory: Normal Cardiovascular: Normal : Normal GI:Auscultation: Normal GI:Palpation: Normal GI: Tenderness: Normal Skin: Decreased Turgur Musculoskeletal: Back:Lumbar (Midline tenderness. Some paraspinal tenderness in the mid lower back.) Psychiatric: Depression Mood Description: Depressed and Flat Affect: Depressed and Quiet Speech Pattern: Clear and Appropriate Laboratory and Diagnostics 10/11/23 05:23 10/11/23 05:23 Labs: Laboratory WBC 3.6 X10^3/uL (3.6-10.0) 10/11/23 05:23 RBC 2.78 X10^6/uL (4.7-6.0) L 10/11/23 05:23 Hgb 8.4 g/dL (13.5-18.0) L 10/11/23 05:23 Hct 25.9 % (42.0-54.0) L 10/11/23 05:23 MCV 92.9 fL (80.0-100.0) 10/11/23 05:23 MCH 30.3 pg (27.0-34.0) 10/11/23 05:23 MCHC 32.7 g/dL (33.0-35.0) L 10/11/23 05:23 RDW 15.0 % (11.6-16.5) 10/11/23 05:23 Plt Count 101 X10^3/uL (150.0-450.0) L 10/11/23 05:23 MPV 9.6 fL (7.4-11.0) 10/11/23 05:23 Neut % (Auto) 54.6 % (42.0-75.0) 10/11/23 05:23 Lymph % (Auto) 33.6 % (21.0-51.0) 10/11/23 05:23 [place] % (Auto) 10.9 % (0.0-13.0) 10/11/23 05:23 Eos % (Auto) 0.7 % (0.9-2.9) L 10/11/23 05:23 Baso % (Auto) 0.2 % (0.2-1.0) 10/11/23 05:23 Neut # (Auto) 1.9 x10^3/uL (2.2-4.8) L 10/11/23 05:23 Lymph # (Auto) 1.2 X10^3/uL (1.3-2.9) L 10/11/23 05:23 [place] # (Auto) 0.4 x10^3/uL (0.3-0.8) 10/11/23 05:23 Eos # (Auto) 0.0 x10^3/uL (0.0-0.2) 10/11/23 05:23 Baso # (Auto) 0.0 X10^3/uL (0.0-0.1) 10/11/23 05:23 Absolute Nucleated RBC 0.3 /100WBC 10/11/23 05:23 Sodium 140 mmol/L (136-145) 10/11/23 05:23 Corrected Sodium TNP 10/11/23 05:23 Potassium 3.0 mmol/L (3.5-5.1) L 10/11/23 05:23 Chloride 103 mmol/L (98-107) 10/11/23 05:23 Carbon Dioxide 27.0 mmol/L (21-32) 10/11/23 05:23 BUN 11 mg/dL (7-18) 10/11/23 05:23 Creatinine 1.27 mg/dL (0.70-1.30) 10/11/23 05:23 Est GFR (MDRD) Af Amer > 60 (>60) 10/11/23 05:23 Est GFR (MDRD) Non-Af > 60 (>60) 10/11/23 05:23 Glucose 94 mg/dL (65-99) 10/11/23 05:23 Calcium 8.6 mg/dL (8.5-10.1) 10/11/23 05:23 Corrected Calcium 9.3 mg/dL (8.5-10.1) 10/11/23 05:23 Magnesium 2.8 mg/dL (2.0-2.9) 10/10/23 05:23 Total Bilirubin 0.70 mg/dL (0.2-1.0) 10/11/23 05:23 AST 129 Units/L (15-37) H 10/11/23 05:23 ALT 53 Units/L (12-78) 10/11/23 05:23 Alkaline Phosphatase 126 Units/L (46-116) H 10/11/23 05:23 Ammonia 13 umol/L (11-32) 10/09/23 10:30 Troponin I High Sens 5.1 ng/L (4.0-60.0) 10/09/23 10:30 Total Protein 7.4 g/dL (6.4-8.2) 10/11/23 05:23 Albumin 3.1 g/dL (3.4-5.0) L 10/11/23 05:23 Globulin 4.3 g/dL (2.5-4.5) 10/11/23 05:23 Albumin/Globulin Ratio 0.7 Ratio (1.1-2.1) L 10/11/23 05:23 Lipase 28 Units/L (16-77) 10/09/23 10:30 Vitamin B12 439 pg/mL (193-986) 10/09/23 10:30 Folate 7.9 ng/mL (>8.6) L 10/09/23 10:30 Specimen Type Clean catch urine 10/09/23 15:40 Urine Color Dark yellow (YELLOW) 10/09/23 15:40 Urine Appearance Slightly hazy (CLEAR) 10/09/23 15:40 Urine pH 6.0 (5.0 - 8.0) 10/09/23 15:40 Ur Specific [place] 1.025 (1.000-1.030) 10/09/23 15:40 Urine Protein 2+ (NEGATIVE) 10/09/23 15:40 Urine Glucose (UA) Negative (NEGATIVE) 10/09/23 15:40 Urine Ketones 3+ (NEGATIVE) 10/09/23 15:40 Urine Blood 1+ (NEGATIVE) 10/09/23 15:40 Urine Nitrite Negative (NEGATIVE) 10/09/23 15:40 Urine Bilirubin Negative (NEGATIVE) 10/09/23 15:40 Urine Urobilinogen 2+ (NORMAL) 10/09/23 15:40 Ur Leukocyte Esterase 1+ (NEGATIVE) 10/09/23 15:40 Urine RBC 0-2 /HPF (0-3) 10/09/23 15:40 Urine WBC 3-5 /HPF (0-5) 10/09/23 15:40 Ur Squamous Epith Cells Rare /HPF (NEGATIVE) 10/09/23 15:40 Amorphous Sediment 1+ /HPF (NEGATIVE) 10/09/23 15:40 Urine Bacteria Trace /HPF (NEGATIVE) 10/09/23 15:40 Hyaline Casts Numerous /LPF (NEGATIVE) 10/09/23 15:40 Granular Casts Rare /LPF (NEGATIVE) 10/09/23 15:40 Ur Culture Indicated? No/not indicated 10/09/23 15:40 Urine Opiates Screen Negative (NEG=<300) 10/09/23 15:40 Urine Methadone Screen Negative (NEG=<300) 10/09/23 15:40 Ur Barbiturates Screen Negative (NEG=<200) 10/09/23 15:40 Ur Phencyclidine Scrn Negative (NEG=<25) 10/09/23 15:40 Ur Amphetamines Screen Negative (NEG=<1000) 10/09/23 15:40 U Benzodiazepines Scrn Negative (NEG=<200) 10/09/23 15:40 Urine Cocaine Screen Negative (NEG=<300) 10/09/23 15:40 U Marijuana (THC) Screen Negative (NEG=<50) 10/09/23 15:40 Ethyl Alcohol mg/dL < 3 mg/dL (0-19.9) 10/09/23 10:30 Assessment and Plan 1: L3 burst fracture. Will talk with his primary about outpatient referral to an IPM if they think they can handle it. Otherwise we will continue with the neurosurgical referral. Continue current medications. 2: Alcohol abuse. Continue careful detox. Closely monitor status. Problem Patient Problems: Patient Problems (Updated 10/10/23 @ 19:08 by Maximo Dixon) Lumbar burst fracture (Acute) S32.001A
[2023-10-11] MEDS: COLACE CAP 100 MG PO SCH (21:15)
[2023-10-12] MEDS: CATAPRES TAB 0.1 MG PO ONE (00:39)
[2023-10-12 06:25] LABS: EOSINOPHILS # (AUTO) 0.1 x10^3/uL (0.0-0.2); MEAN CORPUSCULAR HEMOGLOBIN 30.2 pg (27.0-34.0); MONOCYTES # (AUTO) 0.5 x10^3/uL (0.3-0.8); NEUTROPHILS # (AUTO) 1.6 x10^3/uL (2.2-4.8); WHITE BLOOD COUNT 3.6 X10^3/uL (3.6-10.0)
[2023-10-12 06:36] LABS: BASOPHILS % (AUTO) 0.4 % (0.2-1.0); EOSINOPHILS % (AUTO) 1.7 % (0.9-2.9); HEMATOCRIT 26.4 % (42.0-54.0); HEMOGLOBIN 8.4 g/dL (13.5-18.0); LYMPHOCYTES # (AUTO) 1.4 X10^3/uL (1.3-2.9); LYMPHOCYTES % (AUTO) 39.6 % (21.0-51.0); MEAN CORPUSCULAR VOLUME 94.3 fL (80.0-100.0); MEAN PLATELET VOLUME 9.7 fL (7.4-11.0); MONOCYTES % (AUTO) 14.7 % (0.0-13.0); NEUTROPHILS % (AUTO) 43.6 % (42.0-75.0); PLATELET COUNT 114 X10^3/uL (150.0-450.0); RED BLOOD COUNT 2.79 X10^6/uL (4.7-6.0); RED CELL DISTRIBUTION WIDTH 15.9 % (11.6-16.5)
[2023-10-12 06:40] LABS: ALANINE AMINOTRANSFERASE 53 Units/L (12-78); ALBUMIN 2.8 g/dL (3.4-5.0); ALKALINE PHOSPHATASE 170 Units/L (46-116); ASPARTATE AMINO TRANSFERASE 102 Units/L (15-37); BLOOD UREA NITROGEN 11 mg/dL (7-18); CALCIUM 8.3 mg/dL (8.5-10.1); CARBON DIOXIDE 25.2 mmol/L (21-32); CHLORIDE 102 mmol/L (98-107); COR CA(FOR HYPOALB) 9.3 mg/dL (8.5-10.1); CREATININE 1.16 mg/dL (0.70-1.30); GLUCOSE 94 mg/dL (65-99); POTASSIUM 3.7 mmol/L (3.5-5.1); SODIUM 136 mmol/L (136-145); TOTAL PROTEIN 7.2 g/dL (6.4-8.2); eGFR NON BLACK RACES > 60 (>60)
[2023-10-12] MEDS ORDERED: CONSULT PHARMACY - POTASSIUM & MAGNESIUM XX SCH (07:00)
[2023-10-12] MEDS: NS 1/2 1,000 ML IV 1,000 ML IV ONE (07:10)
[2023-10-12] MEDS ORDERED: NS 1/2 1,000 ML IV 1,000 ML IV ONE ×2 (08:42→19:32)
[2023-10-12] MEDS: FOLIC ACID TAB 1 MG PO SCH (08:47)
[2023-10-12] MEDS: K-DUR TAB 20 MEQ PO SCH (08:48)
[2023-10-12] MEDS: APRESOLINE INJ 20 MG VIAL IVP ONE (08:51)
--- NOTE | 2023-10-12 14:05 | DR.PROGNOT ---
HOSPITAL PROGRESS NOTE Progress Note for Day of: Progress Note Date: 10/12/23 Chief Complaint Chief Complaint: Nurses report only issue overnight was BP elevations. Did well with clonidine PO and IV hydralazine. Pt reports stable back pain. Agreeable to NSG consult or seeing IPM. Stable anemia and thrombocytopenia. Past Medical Family Social History Allergies: Allergies No Known Drug Allergies Allergy (Unknown, Verified 10/09/23 10:22) Onset Date: 01/31/2020 Review Of Systems ROS: No change since H&P Vital Signs Vital Signs: Vital Signs Temperature 97.8 F Temperature 97.7 F Pulse Rate [Left] 80 Pulse Rate [Left] 90 Respiratory Rate 18 Respiratory Rate 18 Respiratory Rate 18 Blood Pressure [Left Arm] 130/79 Blood Pressure [Left Arm] 197/93 O2 Sat by Pulse Oximetry 97 O2 Sat by Pulse Oximetry 98 Physical Exam Oriented: Normal Eyes: Normal Ear: Normal Nose: Normal Throat: Normal Respiratory: Normal Cardiovascular: Normal : Normal GI:Auscultation: Normal GI:Palpation: Normal GI: Tenderness: Normal Skin: Decreased Turgur Musculoskeletal: Back:Lumbar (Midline tenderness. Some paraspinal tenderness in the mid lower back.) Psychiatric: Depression Mood Description: Depressed and Flat Affect: Depressed and Quiet Speech Pattern: Clear and Appropriate Laboratory and Diagnostics 10/12/23 05:31 10/12/23 05:31 Labs: Laboratory WBC 3.6 X10^3/uL (3.6-10.0) 10/12/23 05:31 RBC 2.79 X10^6/uL (4.7-6.0) L 10/12/23 05:31 Hgb 8.4 g/dL (13.5-18.0) L 10/12/23 05:31 Hct 26.4 % (42.0-54.0) L 10/12/23 05:31 MCV 94.3 fL (80.0-100.0) 10/12/23 05:31 MCH 30.2 pg (27.0-34.0) 10/12/23 05:31 MCHC 32.0 g/dL (33.0-35.0) L 10/12/23 05:31 RDW 15.9 % (11.6-16.5) 10/12/23 05:31 Plt Count 114 X10^3/uL (150.0-450.0) L 10/12/23 05:31 MPV 9.7 fL (7.4-11.0) 10/12/23 05:31 Neut % (Auto) 43.6 % (42.0-75.0) 10/12/23 05:31 Lymph % (Auto) 39.6 % (21.0-51.0) 10/12/23 05:31 [place] % (Auto) 14.7 % (0.0-13.0) H 10/12/23 05:31 Eos % (Auto) 1.7 % (0.9-2.9) 10/12/23 05:31 Baso % (Auto) 0.4 % (0.2-1.0) 10/12/23 05:31 Neut # (Auto) 1.6 x10^3/uL (2.2-4.8) L 10/12/23 05:31 Lymph # (Auto) 1.4 X10^3/uL (1.3-2.9) 10/12/23 05:31 [place] # (Auto) 0.5 x10^3/uL (0.3-0.8) 10/12/23 05:31 Eos # (Auto) 0.1 x10^3/uL (0.0-0.2) 10/12/23 05:31 Baso # (Auto) 0.0 X10^3/uL (0.0-0.1) 10/12/23 05:31 Absolute Nucleated RBC 0.5 /100WBC 10/12/23 05:31 Sodium 136 mmol/L (136-145) 10/12/23 05:31 Corrected Sodium TNP 10/12/23 05:31 Potassium 3.7 mmol/L (3.5-5.1) 10/12/23 05:31 Chloride 102 mmol/L (98-107) 10/12/23 05:31 Carbon Dioxide 25.2 mmol/L (21-32) 10/12/23 05:31 BUN 11 mg/dL (7-18) 10/12/23 05:31 Creatinine 1.16 mg/dL (0.70-1.30) 10/12/23 05:31 Est GFR (MDRD) Af Amer > 60 (>60) 10/12/23 05:31 Est GFR (MDRD) Non-Af > 60 (>60) 10/12/23 05:31 Glucose 94 mg/dL (65-99) 10/12/23 05:31 Calcium 8.3 mg/dL (8.5-10.1) L 10/12/23 05:31 Corrected Calcium 9.3 mg/dL (8.5-10.1) 10/12/23 05:31 Magnesium 2.8 mg/dL (2.0-2.9) 10/10/23 05:23 Total Bilirubin 0.40 mg/dL (0.2-1.0) 10/12/23 05:31 AST 102 Units/L (15-37) H 10/12/23 05:31 ALT 53 Units/L (12-78) 10/12/23 05:31 Alkaline Phosphatase 170 Units/L (46-116) H 10/12/23 05:31 Ammonia 13 umol/L (11-32) 10/09/23 10:30 Troponin I High Sens 5.1 ng/L (4.0-60.0) 10/09/23 10:30 Total Protein 7.2 g/dL (6.4-8.2) 10/12/23 05:31 Albumin 2.8 g/dL (3.4-5.0) L 10/12/23 05:31 Globulin 4.4 g/dL (2.5-4.5) 10/12/23 05:31 Albumin/Globulin Ratio 0.6 Ratio (1.1-2.1) L 10/12/23 05:31 Lipase 28 Units/L (16-77) 10/09/23 10:30 Vitamin B12 439 pg/mL (193-986) 10/09/23 10:30 Folate 7.9 ng/mL (>8.6) L 10/09/23 10:30 Specimen Type Clean catch urine 10/09/23 15:40 Urine Color Dark yellow (YELLOW) 10/09/23 15:40 Urine Appearance Slightly hazy (CLEAR) 10/09/23 15:40 Urine pH 6.0 (5.0 - 8.0) 10/09/23 15:40 Ur Specific [place] 1.025 (1.000-1.030) 10/09/23 15:40 Urine Protein 2+ (NEGATIVE) 10/09/23 15:40 Urine Glucose (UA) Negative (NEGATIVE) 10/09/23 15:40 Urine Ketones 3+ (NEGATIVE) 10/09/23 15:40 Urine Blood 1+ (NEGATIVE) 10/09/23 15:40 Urine Nitrite Negative (NEGATIVE) 10/09/23 15:40 Urine Bilirubin Negative (NEGATIVE) 10/09/23 15:40 Urine Urobilinogen 2+ (NORMAL) 10/09/23 15:40 Ur Leukocyte Esterase 1+ (NEGATIVE) 10/09/23 15:40 Urine RBC 0-2 /HPF (0-3) 10/09/23 15:40 Urine WBC 3-5 /HPF (0-5) 10/09/23 15:40 Ur Squamous Epith Cells Rare /HPF (NEGATIVE) 10/09/23 15:40 Amorphous Sediment 1+ /HPF (NEGATIVE) 10/09/23 15:40 Urine Bacteria Trace /HPF (NEGATIVE) 10/09/23 15:40 Hyaline Casts Numerous /LPF (NEGATIVE) 10/09/23 15:40 Granular Casts Rare /LPF (NEGATIVE) 10/09/23 15:40 Ur Culture Indicated? No/not indicated 10/09/23 15:40 Urine Opiates Screen Negative (NEG=<300) 10/09/23 15:40 Urine Methadone Screen Negative (NEG=<300) 10/09/23 15:40 Ur Barbiturates Screen Negative (NEG=<200) 10/09/23 15:40 Ur Phencyclidine Scrn Negative (NEG=<25) 10/09/23 15:40 Ur Amphetamines Screen Negative (NEG=<1000) 10/09/23 15:40 U Benzodiazepines Scrn Negative (NEG=<200) 10/09/23 15:40 Urine Cocaine Screen Negative (NEG=<300) 10/09/23 15:40 U Marijuana (THC) Screen Negative (NEG=<50) 10/09/23 15:40 Ethyl Alcohol mg/dL < 3 mg/dL (0-19.9) 10/09/23 10:30 Assessment and Plan 1: L3 burst fracture. Plan for NSG vs IPM intervention next week. 2: Alcohol abuse. Continue careful detox. Closely monitor status. 3: Anemia of chronic disease. Severe. Monitor. Transfuse as needed. 4: Thrombocytopenia. Likely secondary to alcoholic liver disease. Problem Patient Problems: Patient Problems (Updated 10/10/23 @ 19:08 by Maximo Dixon) Lumbar burst fracture (Acute) S32.001A
[2023-10-12] MEDS: PHENOBARBITAL TAB 15 MG (16.2MG) PO SCH (16:37)
[2023-10-13] MEDS ORDERED: NS 1/2 1,000 ML IV 1,000 ML IV ONE (03:56)
[2023-10-13 06:15] LABS: BASOPHILS % (AUTO) 0.4 % (0.2-1.0); EOSINOPHILS # (AUTO) 0.1 x10^3/uL (0.0-0.2); EOSINOPHILS % (AUTO) 2.2 % (0.9-2.9); HEMATOCRIT 26.3 % (42.0-54.0); HEMOGLOBIN 8.6 g/dL (13.5-18.0); LYMPHOCYTES # (AUTO) 1.4 X10^3/uL (1.3-2.9); LYMPHOCYTES % (AUTO) 36.7 % (21.0-51.0); MEAN CORPUSCULAR HEMOGLOBIN 30.5 pg (27.0-34.0); MEAN CORPUSCULAR HGB CONC 32.7 g/dL (33.0-35.0); MEAN CORPUSCULAR VOLUME 93.3 fL (80.0-100.0); MEAN PLATELET VOLUME 9.8 fL (7.4-11.0); MONOCYTES # (AUTO) 0.6 x10^3/uL (0.3-0.8); MONOCYTES % (AUTO) 15.8 % (0.0-13.0); NEUTROPHILS # (AUTO) 1.8 x10^3/uL (2.2-4.8); NEUTROPHILS % (AUTO) 44.9 % (42.0-75.0); PLATELET COUNT 128 X10^3/uL (150.0-450.0); RED BLOOD COUNT 2.82 X10^6/uL (4.7-6.0); WHITE BLOOD COUNT 3.9 X10^3/uL (3.6-10.0)
[2023-10-13 06:26] LABS: ALANINE AMINOTRANSFERASE 47 Units/L (12-78); ALBUMIN 2.7 g/dL (3.4-5.0); ALKALINE PHOSPHATASE 143 Units/L (46-116); ASPARTATE AMINO TRANSFERASE 87 Units/L (15-37); BLOOD UREA NITROGEN 13 mg/dL (7-18); CALCIUM 9.1 mg/dL (8.5-10.1); CARBON DIOXIDE 23.9 mmol/L (21-32); CHLORIDE 105 mmol/L (98-107); COR CA(FOR HYPOALB) 10.1 mg/dL (8.5-10.1); CREATININE 1.23 mg/dL (0.70-1.30); GLUCOSE 92 mg/dL (65-99); POTASSIUM 4.3 mmol/L (3.5-5.1); SODIUM 138 mmol/L (136-145); TOTAL PROTEIN 7.1 g/dL (6.4-8.2); eGFR NON BLACK RACES > 60 (>60)
[2023-10-13] MEDS ORDERED: CONSULT PHARMACY - POTASSIUM & MAGNESIUM XX SCH (07:00)
[2023-10-13] MEDS: HYZAAR 50/12.5 MG PO SCH (09:16)
[2023-10-13] MEDS: MAGNESIUM SULFATE 1 GRAM/100 mL PREMIX 1 G/100 ML BAG IV SCH (09:16)
[2023-10-13 13:15] LABS: BILIRUBIN,URINE NEGATIVE (NEGATIVE); BLOOD/HEMOGLOBIN,URINE NEGATIVE (NEGATIVE); GLUCOSE, URINE NEGATIVE (NEGATIVE); KETONES,URINE NEGATIVE (NEGATIVE); LEUKOCYTE ESTERASE ,URINE NEGATIVE (NEGATIVE); NITRITES,URINE NEGATIVE (NEGATIVE); PROTEIN,URINE NEGATIVE (NEGATIVE); UROBILINOGEN,URINE 1+ (NORMAL)
[2023-10-13 13:28] LABS: APPEARANCE,URINE CLEAR (CLEAR); COLOR,URINE YELLOW (YELLOW)
[2023-10-13 13:29] LABS: BACTERIA,URINE NEGATIVE /HPF (NEGATIVE); RBC,URINE NONE SEEN /HPF (0-3); SQUAMOUS EPITHELIAL CELL,UR RARE /HPF (NEGATIVE)
--- NOTE | 2023-10-13 16:35 | PCM.PROG ---
Progress Note Progress Note for Day of Date of Exam: 10/13/23 Subjective Subjective: The patient is alert and awake this morning. He will be going on his fourth night tonight on the detox protocol. After tonight, he should be far enough along where he should be at high risk for any significant alcohol DTs. I will try to get him in the [facility] for posthospitalization consultation for the burst fracture of his L3 vertebra. The patient tells us that he is weak again, and he has not been walking at home because of his weak leg muscles. I had a long talk with him this morning about alcohol cessation, and he says he is still with alcohol at this time. Past Medical Family Social History Allergies: Allergies No Known Drug Allergies Allergy (Unknown, Verified 10/09/23 10:22) Onset Date: 01/31/2020 Review of Systems ROS: No change since H&P Vital Signs and I&O's Intake and Output: Intake & Output 10/11/23 10/12/23 10/13/23 10/14/23 11:59 11:59 11:59 11:59 Intake Total 1175 / 1175 2958 / 2958 2807 / 2807 Output Total 1200 / 1200 1600 / 1600 2200 / 2200 Balance -25 / -25 1358 / 1358 607 / 607 Physical Exam Oriented: Normal Eyes: Normal Ear: Normal Nose: Normal Throat: Normal Respiratory: Normal Cardiovascular: Normal : Normal Auscultation: Bowel Sounds: Normal Tenderness: Normal Skin: Decreased Turgur Musculoskeletal: Back:Lumbar (Midline tenderness. Some paraspinal tenderness in the mid lower back.) Psychiatric: Depression Mood Description: Depressed and Flat Affect: Depressed and Quiet Speech Pattern: Clear and Appropriate Laboratory and Diagnostics 10/13/23 05:25 10/13/23 05:25 Labs: Laboratory WBC 3.9 X10^3/uL (3.6-10.0) 10/13/23 05:25 RBC 2.82 X10^6/uL (4.7-6.0) L 10/13/23 05:25 Hgb 8.6 g/dL (13.5-18.0) L 10/13/23 05:25 Hct 26.3 % (42.0-54.0) L 10/13/23 05:25 MCV 93.3 fL (80.0-100.0) 10/13/23 05:25 MCH 30.5 pg (27.0-34.0) 10/13/23 05:25 MCHC 32.7 g/dL (33.0-35.0) L 10/13/23 05:25 RDW 16.0 % (11.6-16.5) 10/13/23 05:25 Plt Count 128 X10^3/uL (150.0-450.0) L 10/13/23 05:25 MPV 9.8 fL (7.4-11.0) 10/13/23 05:25 Neut % (Auto) 44.9 % (42.0-75.0) 10/13/23 05:25 Lymph % (Auto) 36.7 % (21.0-51.0) 10/13/23 05:25 [place] % (Auto) 15.8 % (0.0-13.0) H 10/13/23 05:25 Eos % (Auto) 2.2 % (0.9-2.9) 10/13/23 05:25 Baso % (Auto) 0.4 % (0.2-1.0) 10/13/23 05:25 Neut # (Auto) 1.8 x10^3/uL (2.2-4.8) L 10/13/23 05:25 Lymph # (Auto) 1.4 X10^3/uL (1.3-2.9) 10/13/23 05:25 [place] # (Auto) 0.6 x10^3/uL (0.3-0.8) 10/13/23 05:25 Eos # (Auto) 0.1 x10^3/uL (0.0-0.2) 10/13/23 05:25 Baso # (Auto) 0.0 X10^3/uL (0.0-0.1) 10/13/23 05:25 Absolute Nucleated RBC 0.3 /100WBC 10/13/23 05:25 Sodium 138 mmol/L (136-145) 10/13/23 05:25 Corrected Sodium TNP 10/13/23 05:25 Potassium 4.3 mmol/L (3.5-5.1) 10/13/23 05:25 Chloride 105 mmol/L (98-107) 10/13/23 05:25 Carbon Dioxide 23.9 mmol/L (21-32) 10/13/23 05:25 BUN 13 mg/dL (7-18) 10/13/23 05:25 Creatinine 1.23 mg/dL (0.70-1.30) 10/13/23 05:25 Est GFR (MDRD) Af Amer > 60 (>60) 10/13/23 05:25 Est GFR (MDRD) Non-Af > 60 (>60) 10/13/23 05:25 Glucose 92 mg/dL (65-99) 10/13/23 05:25 Calcium 9.1 mg/dL (8.5-10.1) 10/13/23 05:25 Corrected Calcium 10.1 mg/dL (8.5-10.1) 10/13/23 05:25 Magnesium 1.4 mg/dL (2.0-2.9) L 10/13/23 05:25 Total Bilirubin 0.50 mg/dL (0.2-1.0) 10/13/23 05:25 AST 87 Units/L (15-37) H 10/13/23 05:25 ALT 47 Units/L (12-78) 10/13/23 05:25 Alkaline Phosphatase 143 Units/L (46-116) H 10/13/23 05:25 Ammonia 13 umol/L (11-32) 10/09/23 10:30 Troponin I High Sens 5.1 ng/L (4.0-60.0) 10/09/23 10:30 Total Protein 7.1 g/dL (6.4-8.2) 10/13/23 05:25 Albumin 2.7 g/dL (3.4-5.0) L 10/13/23 05:25 Globulin 4.4 g/dL (2.5-4.5) 10/13/23 05:25 Albumin/Globulin Ratio 0.6 Ratio (1.1-2.1) L 10/13/23 05:25 Lipase 28 Units/L (16-77) 10/09/23 10:30 Total PSA 3.12 ng/mL (0.13-4.0) 10/13/23 05:25 Vitamin B12 439 pg/mL (193-986) 10/09/23 10:30 Folate 7.9 ng/mL (>8.6) L 10/09/23 10:30 Specimen Type Clean catch urine 10/13/23 12:50 Urine Color Yellow (YELLOW) 10/13/23 12:50 Urine Appearance Clear (CLEAR) 10/13/23 12:50 Urine pH 7.0 (5.0 - 8.0) 10/13/23 12:50 Ur Specific [place] 1.005 (1.000-1.030) 10/13/23 12:50 Urine Protein Negative (NEGATIVE) 10/13/23 12:50 Urine Glucose (UA) Negative (NEGATIVE) 10/13/23 12:50 Urine Ketones Negative (NEGATIVE) 10/13/23 12:50 Urine Blood Negative (NEGATIVE) 10/13/23 12:50 Urine Nitrite Negative (NEGATIVE) 10/13/23 12:50 Urine Bilirubin Negative (NEGATIVE) 10/13/23 12:50 Urine Urobilinogen 1+ (NORMAL) 10/13/23 12:50 Ur Leukocyte Esterase Negative (NEGATIVE) 10/13/23 12:50 Urine RBC None seen /HPF (0-3) 10/13/23 12:50 Urine WBC None seen /HPF (0-5) 10/13/23 12:50 Ur Squamous Epith Cells Rare /HPF (NEGATIVE) 10/13/23 12:50 Amorphous Sediment 1+ /HPF (NEGATIVE) 10/09/23 15:40 Urine Bacteria Negative /HPF (NEGATIVE) 10/13/23 12:50 Hyaline Casts Numerous /LPF (NEGATIVE) 10/09/23 15:40 Granular Casts Rare /LPF (NEGATIVE) 10/09/23 15:40 Ur Culture Indicated? No/not indicated 10/13/23 12:50 Urine Opiates Screen Negative (NEG=<300) 10/09/23 15:40 Urine Methadone Screen Negative (NEG=<300) 10/09/23 15:40 Ur Barbiturates Screen Negative (NEG=<200) 10/09/23 15:40 Ur Phencyclidine Scrn Negative (NEG=<25) 10/09/23 15:40 Ur Amphetamines Screen Negative (NEG=<1000) 10/09/23 15:40 U Benzodiazepines Scrn Negative (NEG=<200) 10/09/23 15:40 Urine Cocaine Screen Negative (NEG=<300) 10/09/23 15:40 U Marijuana (THC) Screen Negative (NEG=<50) 10/09/23 15:40 Ethyl Alcohol mg/dL < 3 mg/dL (0-19.9) 10/09/23 10:30 Radiology Reviewed: Yes Plan (1) Lumbar burst fracture: Status: Acute Plan: We plan to have the patient follow up with [facility] in [place], [place], for a posthospitalization consultation. (2) Depression with anxiety: Status: Chronic Plan: I will start the patient on fluoxetine 40 mg daily. (3) Alcohol use disorder: Status: Acute Plan: Alcohol detox protocol. (4) Mild hypertension: Status: None Plan: We will monitor the patient's blood pressure and heart rate and treat accordingly. (5) HIV positive: Status: Chronic Plan: We will resume Genvoya 150 mg p.o. daily. (6) Falling: Status: Acute Plan: We will detox the patient off alcohol and we will hold off on physical therapy at this time until we can get a neurosurgical consultation through telemedicine with [facility]. (7) Anemia: Status: Chronic Qualifiers: Anemia type: iron deficiency Iron deficiency anemia type: inadequate dietary iron intake Qualified Code(s): D50.8 - Other iron deficiency anemias Plan: Follow daily hemoglobins. Transfuse if needed. We will check anemia profile as well. (8) Thrombocytopenia: Status: Acute Plan: Follow daily CBCs to monitor platelet counts.
[2023-10-13] MEDS: MAG-OX TAB PO SCH (21:06)
[2023-10-13] MEDS: NS 1/2 1,000 ML IV 1,000 ML IV ONE (21:09)
[2023-10-14 05:37] LABS: BASOPHILS % (AUTO) 0.7 % (0.2-1.0); EOSINOPHILS # (AUTO) 0.1 x10^3/uL (0.0-0.2); EOSINOPHILS % (AUTO) 1.5 % (0.9-2.9); HEMATOCRIT 27.6 % (42.0-54.0); HEMOGLOBIN 8.8 g/dL (13.5-18.0); LYMPHOCYTES # (AUTO) 1.6 X10^3/uL (1.3-2.9); LYMPHOCYTES % (AUTO) 36.7 % (21.0-51.0); MEAN CORPUSCULAR HEMOGLOBIN 29.6 pg (27.0-34.0); MEAN CORPUSCULAR HGB CONC 31.9 g/dL (33.0-35.0); MEAN CORPUSCULAR VOLUME 92.7 fL (80.0-100.0); MONOCYTES # (AUTO) 0.6 x10^3/uL (0.3-0.8); MONOCYTES % (AUTO) 14.5 % (0.0-13.0); NEUTROPHILS % (AUTO) 46.6 % (42.0-75.0); PLATELET COUNT 173 X10^3/uL (150.0-450.0); RED BLOOD COUNT 2.97 X10^6/uL (4.7-6.0); WHITE BLOOD COUNT 4.4 X10^3/uL (3.6-10.0)
[2023-10-14 05:49] LABS: ALANINE AMINOTRANSFERASE 47 Units/L (12-78); ALBUMIN 2.8 g/dL (3.4-5.0); ALKALINE PHOSPHATASE 121 Units/L (46-116); ASPARTATE AMINO TRANSFERASE 71 Units/L (15-37); BLOOD UREA NITROGEN 17 mg/dL (7-18); CALCIUM 9.3 mg/dL (8.5-10.1); CARBON DIOXIDE 26.1 mmol/L (21-32); CHLORIDE 103 mmol/L (98-107); COR CA(FOR HYPOALB) 10.3 mg/dL (8.5-10.1); CREATININE 1.33 mg/dL (0.70-1.30); GLUCOSE 91 mg/dL (65-99); POTASSIUM 3.9 mmol/L (3.5-5.1); SODIUM 137 mmol/L (136-145); TOTAL PROTEIN 7.4 g/dL (6.4-8.2); eGFR NON BLACK RACES 58 (>60)
[2023-10-14] MEDS: MOTRIN TAB 800 MG PO PRN (08:52)
[2023-10-14] MEDS ORDERED: NS 1/2 1,000 ML IV 1,000 ML IV ONE (11:52)
[2023-10-14] MEDS: HYZAAR 50/12.5 MG PO SCH (13:17)
[2023-10-14] MEDS: HYZAAR 50/12.5 MG ONE (13:24)
--- NOTE | 2023-10-14 20:43 | PCM.PROG ---
Progress Note Progress Note for Day of Date of Exam: 10/14/23 Subjective Subjective: The patient is alert and awake this morning. He has no new complaints today. He reports is getting along fairly well. We will have physical therapy see him today and try to get him up and tested strength out stronger use. We will trial and plan on discharging tomorrow. He is out of danger of any significant alcohol detox at this time. Past Medical Family Social History Allergies: Allergies No Known Drug Allergies Allergy (Unknown, Verified 10/09/23 10:22) Onset Date: 01/31/2020 Review of Systems ROS: No change since H&P Vital Signs and I&O's Vital Signs: Vital Signs Temperature 98.8 F Pulse Rate [Left] 81 Respiratory Rate 20 Blood Pressure [Right Arm] 171/81 O2 Sat by Pulse Oximetry 98 Intake and Output: Intake & Output 10/12/23 10/13/23 10/14/23 10/15/23 11:59 11:59 11:59 11:59 Intake Total 2958 / 2958 2807 / 2807 1514 / 1514 665 / 665 Output Total 1600 / 1600 2200 / 2200 2525 / 2525 300 / 300 Balance 1358 / 1358 607 / 607 -1011 / -1011 365 / 365 Physical Exam Oriented: Normal Eyes: Normal Ear: Normal Nose: Normal Throat: Normal Respiratory: Normal Cardiovascular: Normal : Normal Auscultation: Bowel Sounds: Normal Tenderness: Normal Skin: Decreased Turgur Musculoskeletal: Back:Lumbar (Midline tenderness. Some paraspinal tenderness in the mid lower back.) Psychiatric: Depression Mood Description: Depressed and Flat Affect: Depressed and Quiet Speech Pattern: Clear and Appropriate Laboratory and Diagnostics 10/14/23 05:23 10/14/23 05:23 Labs: Laboratory WBC 4.4 X10^3/uL (3.6-10.0) 10/14/23 05:23 RBC 2.97 X10^6/uL (4.7-6.0) L 10/14/23 05:23 Hgb 8.8 g/dL (13.5-18.0) L 10/14/23 05:23 Hct 27.6 % (42.0-54.0) L 10/14/23 05:23 MCV 92.7 fL (80.0-100.0) 10/14/23 05:23 MCH 29.6 pg (27.0-34.0) 10/14/23 05:23 MCHC 31.9 g/dL (33.0-35.0) L 10/14/23 05:23 RDW 16.0 % (11.6-16.5) 10/14/23 05:23 Plt Count 173 X10^3/uL (150.0-450.0) 10/14/23 05:23 MPV 9.0 fL (7.4-11.0) 10/14/23 05:23 Neut % (Auto) 46.6 % (42.0-75.0) 10/14/23 05:23 Lymph % (Auto) 36.7 % (21.0-51.0) 10/14/23 05:23 [place] % (Auto) 14.5 % (0.0-13.0) H 10/14/23 05:23 Eos % (Auto) 1.5 % (0.9-2.9) 10/14/23 05:23 Baso % (Auto) 0.7 % (0.2-1.0) 10/14/23 05:23 Neut # (Auto) 2.0 x10^3/uL (2.2-4.8) L 10/14/23 05:23 Lymph # (Auto) 1.6 X10^3/uL (1.3-2.9) 10/14/23 05:23 [place] # (Auto) 0.6 x10^3/uL (0.3-0.8) 10/14/23 05:23 Eos # (Auto) 0.1 x10^3/uL (0.0-0.2) 10/14/23 05:23 Baso # (Auto) 0.0 X10^3/uL (0.0-0.1) 10/14/23 05:23 Absolute Nucleated RBC 0.1 /100WBC 10/14/23 05:23 Sodium 137 mmol/L (136-145) 10/14/23 05:23 Corrected Sodium TNP 10/14/23 05:23 Potassium 3.9 mmol/L (3.5-5.1) 10/14/23 05:23 Chloride 103 mmol/L (98-107) 10/14/23 05:23 Carbon Dioxide 26.1 mmol/L (21-32) 10/14/23 05:23 BUN 17 mg/dL (7-18) 10/14/23 05:23 Creatinine 1.33 mg/dL (0.70-1.30) H 10/14/23 05:23 Est GFR (MDRD) Af Amer > 60 (>60) 10/14/23 05:23 Est GFR (MDRD) Non-Af 58 (>60) L 10/14/23 05:23 Glucose 91 mg/dL (65-99) 10/14/23 05:23 Calcium 9.3 mg/dL (8.5-10.1) 10/14/23 05:23 Corrected Calcium 10.3 mg/dL (8.5-10.1) H 10/14/23 05:23 Magnesium 1.7 mg/dL (2.0-2.9) L 10/14/23 05:23 Total Bilirubin 0.40 mg/dL (0.2-1.0) 10/14/23 05:23 AST 71 Units/L (15-37) H 10/14/23 05:23 ALT 47 Units/L (12-78) 10/14/23 05:23 Alkaline Phosphatase 121 Units/L (46-116) H 10/14/23 05:23 Ammonia 13 umol/L (11-32) 10/09/23 10:30 Troponin I High Sens 5.1 ng/L (4.0-60.0) 10/09/23 10:30 Total Protein 7.4 g/dL (6.4-8.2) 10/14/23 05:23 Albumin 2.8 g/dL (3.4-5.0) L 10/14/23 05:23 Globulin 4.6 g/dL (2.5-4.5) H 10/14/23 05:23 Albumin/Globulin Ratio 0.6 Ratio (1.1-2.1) L 10/14/23 05:23 Lipase 28 Units/L (16-77) 10/09/23 10:30 Total PSA 3.12 ng/mL (0.13-4.0) 10/13/23 05:25 Vitamin B12 439 pg/mL (193-986) 10/09/23 10:30 Folate 7.9 ng/mL (>8.6) L 10/09/23 10:30 Specimen Type Clean catch urine 10/13/23 12:50 Urine Color Yellow (YELLOW) 10/13/23 12:50 Urine Appearance Clear (CLEAR) 10/13/23 12:50 Urine pH 7.0 (5.0 - 8.0) 10/13/23 12:50 Ur Specific [place] 1.005 (1.000-1.030) 10/13/23 12:50 Urine Protein Negative (NEGATIVE) 10/13/23 12:50 Urine Glucose (UA) Negative (NEGATIVE) 10/13/23 12:50 Urine Ketones Negative (NEGATIVE) 10/13/23 12:50 Urine Blood Negative (NEGATIVE) 10/13/23 12:50 Urine Nitrite Negative (NEGATIVE) 10/13/23 12:50 Urine Bilirubin Negative (NEGATIVE) 10/13/23 12:50 Urine Urobilinogen 1+ (NORMAL) 10/13/23 12:50 Ur Leukocyte Esterase Negative (NEGATIVE) 10/13/23 12:50 Urine RBC None seen /HPF (0-3) 10/13/23 12:50 Urine WBC None seen /HPF (0-5) 10/13/23 12:50 Ur Squamous Epith Cells Rare /HPF (NEGATIVE) 10/13/23 12:50 Amorphous Sediment 1+ /HPF (NEGATIVE) 10/09/23 15:40 Urine Bacteria Negative /HPF (NEGATIVE) 10/13/23 12:50 Hyaline Casts Numerous /LPF (NEGATIVE) 10/09/23 15:40 Granular Casts Rare /LPF (NEGATIVE) 10/09/23 15:40 Ur Culture Indicated? No/not indicated 10/13/23 12:50 Urine Opiates Screen Negative (NEG=<300) 10/09/23 15:40 Urine Methadone Screen Negative (NEG=<300) 10/09/23 15:40 Ur Barbiturates Screen Negative (NEG=<200) 10/09/23 15:40 Ur Phencyclidine Scrn Negative (NEG=<25) 10/09/23 15:40 Ur Amphetamines Screen Negative (NEG=<1000) 10/09/23 15:40 U Benzodiazepines Scrn Negative (NEG=<200) 10/09/23 15:40 Urine Cocaine Screen Negative (NEG=<300) 10/09/23 15:40 U Marijuana (THC) Screen Negative (NEG=<50) 10/09/23 15:40 Ethyl Alcohol mg/dL < 3 mg/dL (0-19.9) 10/09/23 10:30 Plan (1) Lumbar burst fracture: Status: Acute Plan: We plan to have the patient follow up with [facility] in [place], [place], for a posthospitalization consultation. (2) Depression with anxiety: Status: Chronic Plan: I will start the patient on fluoxetine 40 mg daily. (3) Alcohol use disorder: Status: Acute Plan: Alcohol detox protocol. (4) Mild hypertension: Status: None Plan: We will monitor the patient's blood pressure and heart rate and treat accordingly. (5) HIV positive: Status: Chronic Plan: We will resume Genvoya 150 mg p.o. daily. (6) Falling: Status: Acute Plan: We will detox the patient off alcohol and we will hold off on physical therapy at this time until we can get a neurosurgical consultation through telemedicine with [facility]. (7) Anemia: Status: Chronic Qualifiers: Anemia type: iron deficiency Iron deficiency anemia type: inadequate dietary iron intake Qualified Code(s): D50.8 - Other iron deficiency anemias Plan: Follow daily hemoglobins. Transfuse if needed. We will check anemia profile as well. (8) Thrombocytopenia: Status: Acute Plan: Follow daily CBCs to monitor platelet counts.
[2023-10-15] MEDS: NS 1/2 1,000 ML IV 1,000 ML IV ONE (05:54)
[2023-10-15 06:13] LABS: BASOPHILS % (AUTO) 0.5 % (0.2-1.0); EOSINOPHILS # (AUTO) 0.1 x10^3/uL (0.0-0.2); EOSINOPHILS % (AUTO) 2.1 % (0.9-2.9); HEMOGLOBIN 8.5 g/dL (13.5-18.0); LYMPHOCYTES # (AUTO) 1.4 X10^3/uL (1.3-2.9); LYMPHOCYTES % (AUTO) 37.2 % (21.0-51.0); MEAN CORPUSCULAR HEMOGLOBIN 29.9 pg (27.0-34.0); MEAN CORPUSCULAR HGB CONC 32.5 g/dL (33.0-35.0); MEAN CORPUSCULAR VOLUME 92.1 fL (80.0-100.0); MEAN PLATELET VOLUME 9.4 fL (7.4-11.0); MONOCYTES # (AUTO) 0.6 x10^3/uL (0.3-0.8); MONOCYTES % (AUTO) 17.1 % (0.0-13.0); NEUTROPHILS # (AUTO) 1.6 x10^3/uL (2.2-4.8); NEUTROPHILS % (AUTO) 43.1 % (42.0-75.0); PLATELET COUNT 180 X10^3/uL (150.0-450.0); RED BLOOD COUNT 2.83 X10^6/uL (4.7-6.0); RED CELL DISTRIBUTION WIDTH 15.9 % (11.6-16.5); WHITE BLOOD COUNT 3.6 X10^3/uL (3.6-10.0)
[2023-10-15 06:36] LABS: ALANINE AMINOTRANSFERASE 35 Units/L (12-78); ALBUMIN 2.7 g/dL (3.4-5.0); ALKALINE PHOSPHATASE 136 Units/L (46-116); ASPARTATE AMINO TRANSFERASE 52 Units/L (15-37); BLOOD UREA NITROGEN 12 mg/dL (7-18); CARBON DIOXIDE 25.8 mmol/L (21-32); CHLORIDE 104 mmol/L (98-107); CREATININE 1.26 mg/dL (0.70-1.30); GLUCOSE 85 mg/dL (65-99); MAGNESIUM 1.6 mg/dL (2.0-2.9); POTASSIUM 3.7 mmol/L (3.5-5.1); SODIUM 138 mmol/L (136-145); TOTAL PROTEIN 7.2 g/dL (6.4-8.2); eGFR NON BLACK RACES > 60 (>60)
[2023-10-15] MEDS: MAG-OX TAB PO SCH (09:31)
--- NOTE | 2023-10-15 16:32 | PCM.PROG ---
Progress Note Progress Note for Day of Date of Exam: 10/15/23 Subjective Subjective: The patient is alert and awake this morning. He has no new complaints this morning. He is not in any pain at this time. He was able to get up sit in the chair yesterday for an hour was able to get back in the bed on his own accord without help or assistance. We did a telemedicine consult with [facility] [place]. We put in a consult for neurosurgery and I have spoken to someone from [facility] and the neurosurgeons recommend that the patient be transferred somewhere who has neurosurgery so they can do a hands-on evaluation. I will discuss this with the patient and see what he states. I have a feeling that he will refuse to be transferred as he is ready to go home. Past Medical Family Social History Allergies: Allergies No Known Drug Allergies Allergy (Unknown, Verified 10/09/23 10:22) Onset Date: 01/31/2020 Review of Systems ROS: No change since H&P Vital Signs and I&O's Vital Signs: Vital Signs Temperature 97.2 F Pulse Rate [Left] 74 Respiratory Rate 18 Blood Pressure [Right Arm] 180/94 O2 Sat by Pulse Oximetry 99 Intake and Output: Intake & Output 10/13/23 10/14/23 10/15/23 10/16/23 11:59 11:59 11:59 11:59 Intake Total 2807 / 2807 1514 / 1514 1365 / 1365 720 / 720 Output Total 2200 / 2200 2525 / 2525 1550 / 1550 1500 / 1500 Balance 607 / 607 -1011 / -1011 -185 / -185 -780 / -780 Physical Exam Oriented: Normal Eyes: Normal Ear: Normal Nose: Normal Throat: Normal Respiratory: Normal Cardiovascular: Normal : Normal Auscultation: Bowel Sounds: Normal Tenderness: Normal Skin: Decreased Turgur Musculoskeletal: Back:Lumbar (Midline tenderness. Some paraspinal tenderness in the mid lower back.) Psychiatric: Depression Mood Description: Depressed and Flat Affect: Depressed and Quiet Speech Pattern: Clear and Appropriate Laboratory and Diagnostics 10/15/23 05:23 10/15/23 05:23 Labs: Laboratory WBC 3.6 X10^3/uL (3.6-10.0) 10/15/23 05:23 RBC 2.83 X10^6/uL (4.7-6.0) L 10/15/23 05:23 Hgb 8.5 g/dL (13.5-18.0) L 10/15/23 05:23 Hct 26.0 % (42.0-54.0) L 10/15/23 05:23 MCV 92.1 fL (80.0-100.0) 10/15/23 05:23 MCH 29.9 pg (27.0-34.0) 10/15/23 05:23 MCHC 32.5 g/dL (33.0-35.0) L 10/15/23 05:23 RDW 15.9 % (11.6-16.5) 10/15/23 05:23 Plt Count 180 X10^3/uL (150.0-450.0) 10/15/23 05:23 MPV 9.4 fL (7.4-11.0) 10/15/23 05:23 Neut % (Auto) 43.1 % (42.0-75.0) 10/15/23 05:23 Lymph % (Auto) 37.2 % (21.0-51.0) 10/15/23 05:23 [place] % (Auto) 17.1 % (0.0-13.0) H 10/15/23 05:23 Eos % (Auto) 2.1 % (0.9-2.9) 10/15/23 05:23 Baso % (Auto) 0.5 % (0.2-1.0) 10/15/23 05:23 Neut # (Auto) 1.6 x10^3/uL (2.2-4.8) L 10/15/23 05:23 Lymph # (Auto) 1.4 X10^3/uL (1.3-2.9) 10/15/23 05:23 [place] # (Auto) 0.6 x10^3/uL (0.3-0.8) 10/15/23 05:23 Eos # (Auto) 0.1 x10^3/uL (0.0-0.2) 10/15/23 05:23 Baso # (Auto) 0.0 X10^3/uL (0.0-0.1) 10/15/23 05:23 Absolute Nucleated RBC 0.3 /100WBC 10/15/23 05:23 Sodium 138 mmol/L (136-145) 10/15/23 05:23 Corrected Sodium TNP 10/15/23 05:23 Potassium 3.7 mmol/L (3.5-5.1) 10/15/23 05:23 Chloride 104 mmol/L (98-107) 10/15/23 05:23 Carbon Dioxide 25.8 mmol/L (21-32) 10/15/23 05:23 BUN 12 mg/dL (7-18) 10/15/23 05:23 Creatinine 1.26 mg/dL (0.70-1.30) 10/15/23 05:23 Est GFR (MDRD) Af Amer > 60 (>60) 10/15/23 05:23 Est GFR (MDRD) Non-Af > 60 (>60) 10/15/23 05:23 Glucose 85 mg/dL (65-99) 10/15/23 05:23 Calcium 9.0 mg/dL (8.5-10.1) 10/15/23 05:23 Corrected Calcium 10.0 mg/dL (8.5-10.1) 10/15/23 05:23 Magnesium 1.6 mg/dL (2.0-2.9) L 10/15/23 05:23 Total Bilirubin 0.30 mg/dL (0.2-1.0) 10/15/23 05:23 AST 52 Units/L (15-37) H 10/15/23 05:23 ALT 35 Units/L (12-78) 10/15/23 05:23 Alkaline Phosphatase 136 Units/L (46-116) H 10/15/23 05:23 Ammonia 13 umol/L (11-32) 10/09/23 10:30 Troponin I High Sens 5.1 ng/L (4.0-60.0) 10/09/23 10:30 Total Protein 7.2 g/dL (6.4-8.2) 10/15/23 05:23 Albumin 2.7 g/dL (3.4-5.0) L 10/15/23 05:23 Globulin 4.5 g/dL (2.5-4.5) 10/15/23 05:23 Albumin/Globulin Ratio 0.6 Ratio (1.1-2.1) L 10/15/23 05:23 Lipase 28 Units/L (16-77) 10/09/23 10:30 Total PSA 3.12 ng/mL (0.13-4.0) 10/13/23 05:25 Vitamin B12 439 pg/mL (193-986) 10/09/23 10:30 Folate 7.9 ng/mL (>8.6) L 10/09/23 10:30 Specimen Type Clean catch urine 10/13/23 12:50 Urine Color Yellow (YELLOW) 10/13/23 12:50 Urine Appearance Clear (CLEAR) 10/13/23 12:50 Urine pH 7.0 (5.0 - 8.0) 10/13/23 12:50 Ur Specific [place] 1.005 (1.000-1.030) 10/13/23 12:50 Urine Protein Negative (NEGATIVE) 10/13/23 12:50 Urine Glucose (UA) Negative (NEGATIVE) 10/13/23 12:50 Urine Ketones Negative (NEGATIVE) 10/13/23 12:50 Urine Blood Negative (NEGATIVE) 10/13/23 12:50 Urine Nitrite Negative (NEGATIVE) 10/13/23 12:50 Urine Bilirubin Negative (NEGATIVE) 10/13/23 12:50 Urine Urobilinogen 1+ (NORMAL) 10/13/23 12:50 Ur Leukocyte Esterase Negative (NEGATIVE) 10/13/23 12:50 Urine RBC None seen /HPF (0-3) 10/13/23 12:50 Urine WBC None seen /HPF (0-5) 10/13/23 12:50 Ur Squamous Epith Cells Rare /HPF (NEGATIVE) 10/13/23 12:50 Amorphous Sediment 1+ /HPF (NEGATIVE) 10/09/23 15:40 Urine Bacteria Negative /HPF (NEGATIVE) 10/13/23 12:50 Hyaline Casts Numerous /LPF (NEGATIVE) 10/09/23 15:40 Granular Casts Rare /LPF (NEGATIVE) 10/09/23 15:40 Ur Culture Indicated? No/not indicated 10/13/23 12:50 Urine Opiates Screen Negative (NEG=<300) 10/09/23 15:40 Urine Methadone Screen Negative (NEG=<300) 10/09/23 15:40 Ur Barbiturates Screen Negative (NEG=<200) 10/09/23 15:40 Ur Phencyclidine Scrn Negative (NEG=<25) 10/09/23 15:40 Ur Amphetamines Screen Negative (NEG=<1000) 10/09/23 15:40 U Benzodiazepines Scrn Negative (NEG=<200) 10/09/23 15:40 Urine Cocaine Screen Negative (NEG=<300) 10/09/23 15:40 U Marijuana (THC) Screen Negative (NEG=<50) 10/09/23 15:40 Ethyl Alcohol mg/dL < 3 mg/dL (0-19.9) 10/09/23 10:30 Plan (1) Lumbar burst fracture: Status: Acute Plan: We plan to have the patient follow up with [facility] in [place], [place], for a posthospitalization consultation. (2) Depression with anxiety: Status: Chronic Plan: I will start the patient on fluoxetine 40 mg daily. (3) Alcohol use disorder: Status: Acute Plan: Alcohol detox protocol. (4) Mild hypertension: Status: None Plan: We will monitor the patient's blood pressure and heart rate and treat accordingly. (5) HIV positive: Status: Chronic Plan: We will resume Genvoya 150 mg p.o. daily. (6) Falling: Status: Acute Plan: We will detox the patient off alcohol and we will hold off on physical therapy at this time until we can get a neurosurgical consultation through telemedicine with [facility]. (7) Anemia: Status: Chronic Qualifiers: Anemia type: iron deficiency Iron deficiency anemia type: inadequate dietary iron intake Qualified Code(s): D50.8 - Other iron deficiency anemias Plan: Follow daily hemoglobins. Transfuse if needed. We will check anemia profile as well. (8) Thrombocytopenia: Status: Acute Plan: Follow daily CBCs to monitor platelet counts.
[2023-10-15] MEDS ORDERED: NS 1/2 1,000 ML IV 1,000 ML IV ONE (17:29)
[2023-10-16 06:04] LABS: BASOPHILS % (AUTO) 0.7 % (0.2-1.0); EOSINOPHILS # (AUTO) 0.1 x10^3/uL (0.0-0.2); EOSINOPHILS % (AUTO) 2.1 % (0.9-2.9); HEMATOCRIT 26.5 % (42.0-54.0); HEMOGLOBIN 8.6 g/dL (13.5-18.0); LYMPHOCYTES # (AUTO) 1.6 X10^3/uL (1.3-2.9); LYMPHOCYTES % (AUTO) 35.5 % (21.0-51.0); MEAN CORPUSCULAR HEMOGLOBIN 29.9 pg (27.0-34.0); MEAN CORPUSCULAR HGB CONC 32.4 g/dL (33.0-35.0); MEAN CORPUSCULAR VOLUME 92.1 fL (80.0-100.0); MEAN PLATELET VOLUME 8.8 fL (7.4-11.0); MONOCYTES # (AUTO) 0.6 x10^3/uL (0.3-0.8); MONOCYTES % (AUTO) 12.9 % (0.0-13.0); NEUTROPHILS # (AUTO) 2.2 x10^3/uL (2.2-4.8); NEUTROPHILS % (AUTO) 48.8 % (42.0-75.0); PLATELET COUNT 199 X10^3/uL (150.0-450.0); RED BLOOD COUNT 2.88 X10^6/uL (4.7-6.0); RED CELL DISTRIBUTION WIDTH 15.7 % (11.6-16.5); WHITE BLOOD COUNT 4.6 X10^3/uL (3.6-10.0)
[2023-10-16 06:18] LABS: ALANINE AMINOTRANSFERASE 31 Units/L (12-78); ALBUMIN 2.7 g/dL (3.4-5.0); ALKALINE PHOSPHATASE 114 Units/L (46-116); ASPARTATE AMINO TRANSFERASE 37 Units/L (15-37); BLOOD UREA NITROGEN 12 mg/dL (7-18); CALCIUM 9.3 mg/dL (8.5-10.1); CARBON DIOXIDE 23.5 mmol/L (21-32); CHLORIDE 105 mmol/L (98-107); COR CA(FOR HYPOALB) 10.3 mg/dL (8.5-10.1); CREATININE 1.21 mg/dL (0.70-1.30); GLUCOSE 88 mg/dL (65-99); MAGNESIUM 1.6 mg/dL (2.0-2.9); POTASSIUM 3.9 mmol/L (3.5-5.1); SODIUM 140 mmol/L (136-145); TOTAL PROTEIN 7.3 g/dL (6.4-8.2); eGFR NON BLACK RACES > 60 (>60)
[2023-10-16] MEDS ORDERED: CONSULT PHARMACY - POTASSIUM & MAGNESIUM XX SCH (07:00)
[2023-10-16] MEDS ORDERED: NS 1/2 1,000 ML IV 1,000 ML IV ONE (07:35)
[2023-10-16] MEDS: APRESOLINE INJ 20 MG VIAL IVP PRN (07:40)
[2023-10-16] MEDS: NS 1/2 1,000 ML IV 1,000 ML with MAGNESIUM SULFATE 50% INJ VIAL 1 G IV SCH (09:37)
[2023-10-16] MEDS: PERCOCET TAB 5/325 MG PO PRN (19:45)
[2023-10-17 04:18] VITALS: O2SAT 98
[2023-10-17 05:11] LABS: BASOPHILS % (AUTO) 0.7 % (0.2-1.0); EOSINOPHILS # (AUTO) 0.1 x10^3/uL (0.0-0.2); EOSINOPHILS % (AUTO) 2.3 % (0.9-2.9); HEMATOCRIT 24.8 % (42.0-54.0); HEMOGLOBIN 8.1 g/dL (13.5-18.0); LYMPHOCYTES # (AUTO) 1.4 X10^3/uL (1.3-2.9); LYMPHOCYTES % (AUTO) 34.2 % (21.0-51.0); MEAN CORPUSCULAR HEMOGLOBIN 29.8 pg (27.0-34.0); MEAN CORPUSCULAR HGB CONC 32.4 g/dL (33.0-35.0); MEAN CORPUSCULAR VOLUME 91.9 fL (80.0-100.0); MEAN PLATELET VOLUME 8.8 fL (7.4-11.0); MONOCYTES # (AUTO) 0.6 x10^3/uL (0.3-0.8); MONOCYTES % (AUTO) 15.3 % (0.0-13.0); NEUTROPHILS # (AUTO) 1.9 x10^3/uL (2.2-4.8); NEUTROPHILS % (AUTO) 47.5 % (42.0-75.0); PLATELET COUNT 213 X10^3/uL (150.0-450.0); RED CELL DISTRIBUTION WIDTH 15.6 % (11.6-16.5); WHITE BLOOD COUNT 4.1 X10^3/uL (3.6-10.0)
[2023-10-17 05:27] LABS: ALANINE AMINOTRANSFERASE 25 Units/L (12-78); ALBUMIN 2.6 g/dL (3.4-5.0); ALKALINE PHOSPHATASE 113 Units/L (46-116); ASPARTATE AMINO TRANSFERASE 30 Units/L (15-37); BLOOD UREA NITROGEN 15 mg/dL (7-18); CALCIUM 9.1 mg/dL (8.5-10.1); CARBON DIOXIDE 23.7 mmol/L (21-32); CHLORIDE 105 mmol/L (98-107); COR CA(FOR HYPOALB) 10.2 mg/dL (8.5-10.1); CREATININE 1.25 mg/dL (0.70-1.30); GLUCOSE 83 mg/dL (65-99); MAGNESIUM 1.9 mg/dL (2.0-2.9); POTASSIUM 3.9 mmol/L (3.5-5.1); SODIUM 138 mmol/L (136-145); TOTAL PROTEIN 7.2 g/dL (6.4-8.2); eGFR NON BLACK RACES > 60 (>60)
[2023-10-17] MEDS ORDERED: CONSULT PHARMACY - POTASSIUM & MAGNESIUM XX SCH ×2 (09:00)
[2023-10-17 11:39] VITALS: BP 176/92; PULSE 84; RESP 19; TEMP 97.6
== END 2023-10-17 10:09 | disposition short-term general hospital (02) | DRG 552 ==
LOC: ER 10:07 → U 10:07 → MED/SURG 10:07 → OBSVTOIN 13:03 → MED/SURG 14:04 → INTOOBSV 10-11 09:00
PROVIDERS: ADMIT Family Medicine; ATTEND Family Medicine
DX: R94.31 Abnormal electrocardiogram [ECG] [EKG]; E83.42 Hypomagnesemia; K21.9 Gastro-esophageal reflux disease without esophagitis; Z91.81 History of falling; M54.2 Cervicalgia; S32.031A Stable burst fracture of third lumbar vertebra, initial encounter for closed fracture; R53.1 Weakness; M54.59 Other low back pain; I10 Essential (primary) hypertension; R26.89 Other abnormalities of gait and mobility; R29.6 Repeated falls; Z21 Asymptomatic human immunodeficiency virus [HIV] infection status; E78.5 Hyperlipidemia, unspecified; D50.8 Other iron deficiency anemias; F41.8 Other specified anxiety disorders; W18.39XA Other fall on same level, initial encounter

== ENCOUNTER 2024-03-16 09:00 | Inpatient (IN) ==
[2024-03-16] MEDS ORDERED: MAALOX or MYLANTA PO PRN (11:08)
[2024-03-16] MEDS ORDERED: ZOFRAN ODT PO PRN (11:08)
[2024-03-16] MEDS ORDERED: MILK OF MAGNESIA PO PRN (11:08)
[2024-03-16] MEDS ORDERED: KAOPECTATE (NEW FORMULA) PO PRN (11:08)
--- NOTE | 2024-03-16 13:29 | PT/OTEVAL ---
PT/OT OBJECTIVES - HISTORY Prescription: OT Consult Diagnosis: Deconditioning s/p alcohol withdrawal Precautions: Fall risk, HIV positive PMH: Anxiety, Dyslipidemia, GERD and Hypertension Prior Level of Function: Assistance Required Other: Per pt report, he lives at home with his in a single story home with 4 steps to enter without HR. Pt states that he is (I) with ADLs. Does not report DME. No family present at time of evaluation to assist in obtaining full history. History of Present Illness: Per documentation: Pt was first admitted to [facility] due to bringing him to the ER because pt was lethargic, drowsy, not verbally responding but is opening eyes and following commands with delayed responses. Pt was not eating, not drinking, and depressed per his d/t family stressors. Pt nauseated on arrival. Pt is daily drinker, drinks approx 2 pints of liquor/day, "chases with beer". Pt was put on swingbed protocol for pt to receive rehab services to increase safety upon d/c. - COGNITION Mental Status: Name, Lethargic Communication Status: Verbal Ability to Follow Directions: 1 Step Affect: Calm - PAIN No signs of pain Pain Scale: No Pain Comments: In all extremities when sitting EOB. Back Comments: - BED MOBILITY Rolling: Maximum Scooting: Maximum - TRANSFERS Supine to Sit: Maximum Sit to Stand: Maximum, x2 Toileting: Maximum Safety (requires cues for:): Hand Placement Precaution - ADL'S Upper Body ADL: Maximum Lower Body ADL: Maximum Toileting: Dependent Bathing: Maximum - BALANCE Static Sitting: Good Standing: Poor Dynamic Sitting: Good Standing: Total Assist - NEUROMOTOR/SENSATION Jonathan. Lower Ext Sensation: WFL Coordination: WFL Jonathan. Upper Ext Sensation: WFL Coordination: WFL - HAND DOMINANCE Extremity Function: Hand Dominance: Right - ROM Bilateral LE ROM: WFL - STRENGTH Bilateral UE Strength Number: 3 Other comment: 3+/5 in BUE Bilateral LE Strength Number: 3 Other comment: Grossly observed - TREATMENT Date: 03/16/24 Time: 09:00 Treatment Type: Evaluation Treatment Provided: Therapeutic Activities - TOTAL TREATMENT TIME Total Time: 90 - POST ASSESSMENT Post Assessment Comment: Pt was seen for skilled OT to assess CLOF. Pt was agreeable to participate with skilled OT and able to provide PLOF (no family present to confirm). Pt required VC participation. Pt requires excessive time for all mobility this date. Pt is max A for ADLs and ADL mobility. Pt STS with RW and max A x2. Pt was leaning to the R side. Max VC and mod TC for upright sitting this date. Pt attempted to stand, however was unable to stand upright and leaning was noted. Pt demonstrate deficits with ADLs and ADL functional mobility. Pt would benefit from skilled OT services to address ADL deficits to facilitate highest level of ADL function needed for safe d/c planning. - EXIT DISPOSITION Exit Position: BED Call light in reach: Yes PT/OT ASSESSMENT - OT Problem List: Decreased Mobility ADL's, Decreased Safety Aware, Decreased Dressing, Decreased Bathing, Decreased Grooming, Decreased UE Strength - OT GOALS Neuroradiologist Goals Days: 20 Mobility for ADL's: Pt to functionally transfer to BSC with LRAD and min A Safety Awareness: Pt to improve safety to F+ Dressing: Pt to improve LB dressing to min A Bathing: Pt to improve bathing to min A Grooming: Pt to improve grooming to supv A Upper Ext. Strength/Use: Pt to improve MMT in BUE by 1 grade Short Term Goals Days: 10 Mobility for ADL's: Pt to functionally transfer to BSC with LRAD and mod A Safety Awareness: Pt to improve safety to F Dressing: Pt to improve UB dressing to min A Bathing: Pt to improve bathing to mod A Other: Pt to improve FAT to F+ - PATIENT GOALS Patient/Family Goals: I want to feel better. Rehabilitation Potential: F to meet stated goals Justification for Potential: To facilitate highest level of ADL function needed for safe d/c planning Weakness and Barriers: Decreased Participation, Pain - PLAN Suggested Treatment Plan: Therapeutic Activity, Self Care Training, Neuro Re- education, Therapeutic Ex with HEP, Patient Education - FREQUENCY AND DURATION OT: 5x week x 20 days Expected Continuation of Care at Discharge: Skilled Care Facility, Determined on Progress
[2024-03-16] MEDS: NEURONTIN TAB 600 MG PO SCH (14:37)
[2024-03-16] MEDS: MAG-OX TAB PO SCH ×2 (17:30→21:03)
--- NOTE | 2024-03-16 19:13 | PT/OTEVAL ---
PT/OT OBJECTIVES - HISTORY Prescription: PT Consult Diagnosis: Deconditioning due s/p Alcohol Withdrawal Precautions: Fall Risk, HIV+ PMH: Anxiety, Dyslipidemia, GERD, HTN, HIV+, Chronic LBP, Alcohol Use Disorder, Ortho Sx Other: Per patient report (no family present)- he resides at home with his and step son in a single story home with 4 steps to enter (no handrail). Pt reports that he has spent the last several months in bed with very minimal movement. Unable to provide clear picture of ability to perform transfers. Reports he was unable to move in bed and get himself dressed if someone brought his clothes to him. Pt also states it has probably been 6 months since he has walked- but when he could walk would use a walker. History of Present Illness: Mr. Pandya is a 63 year old male who was brought to the ER on 03/08/2024 by his with reports pt was lethargic, drowsy and not verbally responding but opening eyes and following commands; however, with delayed responses. Per report, pt had not been eating or drinking and depressed per his due to family stressors. It is also noted that pt is a daily drinker. Pt was also noted to be hypotensive and septic on arrival and was subsequently admitted to ICU. Pt was treated medically and stabilized and due to significant weakness and inability to safely perform mobility tasks pt has been transitioned to swing bed rehab program with goal of increasing strength and independence with mobility tasks to facilitate safe discharge planning. - COGNITION Mental Status: Alert, Name, Place, Purpose Communication Status: Verbal Ability to Follow Directions: 1 Step Affect: Depressed - PAIN No signs of pain Pain Scale: No Pain Comments: While in bed or sitting at EOB Back Comments: "Entire Body" Pain Scale: Severe Comments: When attempting to stand- pt reports "severe" 10/10 pain- entire body - BED MOBILITY Rolling: Supervision Scooting: Maximum - TRANSFERS Supine to Sit: Maximum Sit to Stand: Maximum, x2 Sit to Stand Comment: Unable to achieve full upright posture; flexed at trunk, hips and knees. Sit or Stand Pivot: Not Tested Sit or Stand Pivot Comment: Very fatigued- unable to attempt. - BALANCE Static Sitting: Fair Standing: Total Assist Dynamic Sitting: Fair Standing: Total Assist - NEUROMOTOR/SENSATION Jonathan. Lower Ext Sensation: WFL Coordination: WFL Proprioception: WFL - ROM Bilateral LE ROM: WFL Muscle Tone: WFL - STRENGTH Bilateral LE Strength Number: 2 Other comment: B Hips: 2/5; B Knees and Ankles: 2+/5 - GAIT Comments: Unable. - TREATMENT Date: 03/16/24 Time: 09:00 Treatment Type: Evaluation Treatment Provided: Therapeutic Activities, Therapeutic Excersises - TOTAL TREATMENT TIME Total Time: 120 - POST ASSESSMENT Post Assessment Comment: Pt was found supine in bed in room- initially attempted to decline participation as he wanted to eat his cookies and be left alone; however, DON and MD into room to encourage participation and pt then agreeable. Pt attempted to initiate transition from supine to sitting at EOB- reports he wants to try himself. After 8 minutes and 13 seconds, pt noted to make it to R sidelying position and scoot slightly towards EOB. Pt unable to move LEs to assist in transition this date. Pt assisted to EOB with max assist. Once at EOB, pt initially able to maintain sitting balance with BUE assist; however, after ~1 minute started with right, posterior lean requiring min assist for correction. Seated at EOB, pt instructed in and completed B LAQs (2 x 5 of each- signifcant increased time to complete as pt easily fatigues). Attempted to perform sit to stand transfers at EOB- despite max assist x 2 unable to achieve upright position or even attempt stand pivot transfers as pt offering no assistance (has previously during acute care stay). Pt returned to seated position- following therapeutic rest break- attempted 1 more time for sit to stand with inability to complete despite max assist x 2. Pt assisted back to supine position in bed with max assist. Pt education on benefits of participation in PT to address deficits and facilitate highest level of function and need to participate with therapy. Pt would benefit from continnued participation in PT services to address deficits and facilitate highest level of function and safe discharge planning. - EXIT DISPOSITION Exit Position: BED Call light in reach: Yes Bed Alarm On: YES PT/OT ASSESSMENT - PT Problem List: Decreased Bed Mobility, Decreased Transfers, Decreased Balance, Decreased Safety, Decreased LE Strength, Other - PT GOALS Short Term Goals Days: 10 Mobility: Pt will perform bed mobility tasks with min assist Transfers: Pt will perform sit to stand transfers with max assist x 1 Gait: - Balance: Pt will increase static sitting balance at EOB to good x 15 minutes Others: Pt will perform stand pivot transfers with mod assist x 2 Refueling Ramp Supervisor Goals Days: 20 Mobility: Pt will perform bed mobility tasks with SBA Transfers: Pt will perform sit to stand transfers with min assist x 1 Gait: Pt will ambulate 10ft with FWW with min assist x 1 Balance: Pt will increase static standing balance to fair x 2 minutes ROM/Strength: Pt will increase BLE strength to 4/5 Others: Pt will perform stand pivot transfers with mod assist x 1 - OT GOALS Shelter Goals Days: 20 Mobility for ADL's: Pt to functionally transfer to BSC with LRAD and min A Safety Awareness: Pt to improve safety to F+ Dressing: Pt to improve LB dressing to min A Bathing: Pt to improve bathing to min A Grooming: Pt to improve grooming to supv A Upper Ext. Strength/Use: Pt to improve MMT in BUE by 1 grade Short Term Goals Days: 10 Mobility for ADL's: Pt to functionally transfer to BSC with LRAD and mod A Safety Awareness: Pt to improve safety to F Dressing: Pt to improve UB dressing to min A Bathing: Pt to improve bathing to mod A Other: Pt to improve FAT to F+ - PATIENT GOALS Patient/Family Goals: "I really don't know" Rehabilitation Potential: Fair to good to meet stated goals Justification for Potential: Facilitate highest level of function and safe discharge planning. Weakness and Barriers: Decreased Participation If yes, explain: Also complicated medical history. - PLAN Suggested Treatment Plan: Bed Mobility Training, Therapeutic Activity, Gait Training, Neuro Re-education, Therapeutic Ex with HEP, Patient Education, Family Education, Other Other comment: Manual Therapy - FREQUENCY AND DURATION PT: 5-6x per week x 20 days. Expected Continuation of Care at Discharge: Skilled Care Facility, Rehabilitation Center, Determined on Progress Anticipated Equipment Needs: TBD pending participation and progress.
[2024-03-16] MEDS: LIBRIUM PO PRN (21:03)
[2024-03-17 04:43] LABS: LYMPHOCYTES # (AUTO) 2.4 X10^3/uL (1.3-2.9); MEAN PLATELET VOLUME 9.6 fL (7.4-11.0); MONOCYTES # (AUTO) 0.2 x10^3/uL (0.3-0.8)
[2024-03-17 04:47] LABS: BASOPHILS # (AUTO) 0.1 X10^3/uL (0.0-0.1); BASOPHILS % (AUTO) 1.2 % (0.2-1.0); EOSINOPHILS % (AUTO) 0.8 % (0.9-2.9); HEMATOCRIT 22.5 % (42.0-54.0); HEMOGLOBIN 8.1 g/dL (13.5-18.0); LYMPHOCYTES % (AUTO) 59.9 % (21.0-51.0); MEAN CORPUSCULAR HEMOGLOBIN 34.3 pg (27.0-34.0); MEAN CORPUSCULAR HGB CONC 36.2 g/dL (33.0-35.0); MEAN CORPUSCULAR VOLUME 94.8 fL (80.0-100.0); NEUTROPHILS # (AUTO) 1.3 x10^3/uL (2.2-4.8); NEUTROPHILS % (AUTO) 32.1 % (42.0-75.0); PLATELET COUNT 122 X10^3/uL (150.0-450.0); RED BLOOD COUNT 2.37 X10^6/uL (4.7-6.0); WHITE BLOOD COUNT 4.1 X10^3/uL (3.6-10.0)
[2024-03-17 04:51] LABS: ALANINE AMINOTRANSFERASE 44 Units/L (12-78); ALBUMIN 1.7 g/dL (3.4-5.0); ALKALINE PHOSPHATASE 160 Units/L (46-116); ASPARTATE AMINO TRANSFERASE 112 Units/L (15-37); BLOOD UREA NITROGEN 12 mg/dL (7-18); CALCIUM 8.6 mg/dL (8.5-10.1); CARBON DIOXIDE 29.8 mmol/L (21-32); CHLORIDE 111 mmol/L (98-107); COR CA(FOR HYPOALB) 10.4 mg/dL (8.5-10.1); CREATININE 1.31 mg/dL (0.70-1.30); GLUCOSE 105 mg/dL (65-99); POTASSIUM 4.1 mmol/L (3.5-5.1); SODIUM 143 mmol/L (136-145); eGFR NON BLACK RACES 59 (>60)
[2024-03-17 05:03] LABS: ANISOCYTOSIS SLIGHT; PLATELET MORPHOLOGY COMMENT NORMAL (NORMAL); ROULEAUX PRESENT; TARGET CELLS PRESENT
[2024-03-17] MEDS: PROTONIX TAB 40 MG PO SCH (08:43)
[2024-03-17] MEDS: PROzac PO SCH (08:43)
[2024-03-17] MEDS: COZAAR PO SCH (08:43)
[2024-03-17] MEDS: FOLIC ACID TAB 1 MG PO SCH (08:43)
[2024-03-17] MEDS: PATIENT'S HOME MEDICATION PO SCH (08:46)
[2024-03-17] MEDS: VITAMIN B-1 PO SCH (13:09)
[2024-03-17 17:45] VITALS: BMI 22.7
[2024-03-20 06:28] LABS: ALANINE AMINOTRANSFERASE 35 Units/L (12-78); ALBUMIN 1.8 g/dL (3.4-5.0); ALKALINE PHOSPHATASE 149 Units/L (46-116); ASPARTATE AMINO TRANSFERASE 64 Units/L (15-37); BLOOD UREA NITROGEN 13 mg/dL (7-18); CALCIUM 9.3 mg/dL (8.5-10.1); CARBON DIOXIDE 29.1 mmol/L (21-32); CHLORIDE 106 mmol/L (98-107); COR CA(FOR HYPOALB) 11.1 mg/dL (8.5-10.1); CREATININE 1.26 mg/dL (0.70-1.30); GLUCOSE 76 mg/dL (65-99); POTASSIUM 3.8 mmol/L (3.5-5.1); SODIUM 142 mmol/L (136-145); TOTAL PROTEIN 7.2 g/dL (6.4-8.2); eGFR NON BLACK RACES > 60 (>60)
[2024-03-20] MEDS: MAG-OX TAB PO SCH (08:36)
[2024-03-20] MEDS: K-DUR TAB 20 MEQ PO SCH (08:37)
[2024-03-21 06:42] LABS: BASOPHILS % (AUTO) 0.8 % (0.2-1.0); EOSINOPHILS % (AUTO) 0.5 % (0.9-2.9); HEMATOCRIT 25.9 % (42.0-54.0); HEMOGLOBIN 8.7 g/dL (13.5-18.0); LYMPHOCYTES # (AUTO) 1.9 X10^3/uL (1.3-2.9); LYMPHOCYTES % (AUTO) 40.9 % (21.0-51.0); MEAN CORPUSCULAR HGB CONC 33.6 g/dL (33.0-35.0); MEAN CORPUSCULAR VOLUME 92.3 fL (80.0-100.0); MEAN PLATELET VOLUME 9.5 fL (7.4-11.0); MONOCYTES # (AUTO) 0.4 x10^3/uL (0.3-0.8); MONOCYTES % (AUTO) 8.1 % (0.0-13.0); NEUTROPHILS # (AUTO) 2.3 x10^3/uL (2.2-4.8); NEUTROPHILS % (AUTO) 49.7 % (42.0-75.0); PLATELET COUNT 130 X10^3/uL (150.0-450.0); WHITE BLOOD COUNT 4.5 X10^3/uL (3.6-10.0)
[2024-03-21] MEDS: CONSULT PHARMACY - POTASSIUM & MAGNESIUM XX SCH (06:55)
[2024-03-21 07:05] LABS: ANISOCYTOSIS SLIGHT; PLATELET MORPHOLOGY COMMENT NORMAL (NORMAL); TARGET CELLS PRESENT
[2024-03-21 07:09] LABS: ROULEAUX PRESENT
[2024-03-22 07:46] LABS: BASOPHILS # (AUTO) 0.1 X10^3/uL (0.0-0.1); BASOPHILS % (AUTO) 1.9 % (0.2-1.0); HEMATOCRIT 25.7 % (42.0-54.0); HEMOGLOBIN 8.5 g/dL (13.5-18.0); LYMPHOCYTES # (AUTO) 1.9 X10^3/uL (1.3-2.9); LYMPHOCYTES % (AUTO) 47.3 % (21.0-51.0); MEAN CORPUSCULAR HEMOGLOBIN 30.5 pg (27.0-34.0); MEAN CORPUSCULAR HGB CONC 33.1 g/dL (33.0-35.0); MEAN CORPUSCULAR VOLUME 92.2 fL (80.0-100.0); MEAN PLATELET VOLUME 9.5 fL (7.4-11.0); MONOCYTES # (AUTO) 0.2 x10^3/uL (0.3-0.8); NEUTROPHILS # (AUTO) 1.8 x10^3/uL (2.2-4.8); NEUTROPHILS % (AUTO) 44.8 % (42.0-75.0); PLATELET COUNT 149 X10^3/uL (150.0-450.0); RED BLOOD COUNT 2.79 X10^6/uL (4.7-6.0); RED CELL DISTRIBUTION WIDTH 17.4 % (11.6-16.5)
[2024-03-22 07:48] LABS: ANISOCYTOSIS SLIGHT; PLATELET MORPHOLOGY COMMENT NORMAL (NORMAL); POIKILOCYTOSIS SLIGHT; TARGET CELLS 1+
[2024-03-22 07:49] LABS: ROULEAUX PRESENT
[2024-03-22 08:06] LABS: ALANINE AMINOTRANSFERASE 34 Units/L (12-78); ALBUMIN 1.7 g/dL (3.4-5.0); ALKALINE PHOSPHATASE 148 Units/L (46-116); ASPARTATE AMINO TRANSFERASE 64 Units/L (15-37); BLOOD UREA NITROGEN 12 mg/dL (7-18); CARBON DIOXIDE 27.4 mmol/L (21-32); CHLORIDE 106 mmol/L (98-107); COR CA(FOR HYPOALB) 10.8 mg/dL (8.5-10.1); COR NA(FOR HYPERGLY) 140 mmol/L (136-145); GLUCOSE 126 mg/dL (65-99); POTASSIUM 3.9 mmol/L (3.5-5.1); SODIUM 139 mmol/L (136-145); TOTAL PROTEIN 7.3 g/dL (6.4-8.2); eGFR NON BLACK RACES > 60 (>60)
[2024-03-22 09:35] LABS: BILIRUBIN,URINE NEGATIVE (NEGATIVE); BLOOD/HEMOGLOBIN,URINE 5+ (NEGATIVE); GLUCOSE, URINE NEGATIVE (NEGATIVE); KETONES,URINE NEGATIVE (NEGATIVE); LEUKOCYTE ESTERASE ,URINE 3+ (NEGATIVE); NITRITES,URINE NEGATIVE (NEGATIVE); PROTEIN,URINE 2+ (NEGATIVE); UROBILINOGEN,URINE NORMAL (NORMAL)
[2024-03-22] MEDS: SEROquel TAB 25 mg PO SCH (09:35)
[2024-03-22 09:47] LABS: APPEARANCE,URINE HAZY (CLEAR); COLOR,URINE DARK YELLOW (YELLOW)
[2024-03-22 09:49] LABS: BACTERIA,URINE 3+ /HPF (NEGATIVE); SQUAMOUS EPITHELIAL CELL,UR RARE /HPF (NEGATIVE)
[2024-03-22] MEDS: ROCEPHIN VIAL 1 GRAM 1 G in NS 100 ML IV 100 ML IV SCH (11:10)
--- NOTE | 2024-03-22 17:10 | PCM.PROG ---
Progress Note Progress Note for Day of Date of Exam: 03/22/24 Subjective Subjective: Clinical Observations The patient appears confused and possibly experiencing hallucinations. He repeatedly mentions trying to get out of a truck, despite being in a hospital bed. He talks about a door being locked and a box being in the way, which are not present. The patient also refers to a "little skinny one" named Sterling, who he claims locked a door. When addressed, the patient didn't initially recognize me as his doctor. He seems to have periods of lucidity, as the nurse reported he was alert and making sense earlier in the morning during a blood draw. However, during our interaction, his responses were often incoherent and not aligned with reality. The patient's mental status appears to have changed from last week, as noted by staff. There's a discrepancy between his current confused state and his reported coherent interaction with the clinical laboratory technician earlier. Past Medical Family Social History Allergies: Allergies No Known Drug Allergies Allergy (Unknown, Verified 03/08/24 11:27) Onset Date: 01/31/2020 Review of Systems ROS: No change since H&P Vital Signs and I&O's Intake and Output: Intake & Output 03/20/24 03/21/24 03/22/24 03/23/24 11:59 11:59 11:59 11:59 Intake Total 230 / 230 875 / 875 730 / 730 100 / 100 Output Total 1270 / 1270 300 / 300 Balance -1040 / -1040 575 / 575 730 / 730 100 / 100 Physical Exam Oriented: Not Oriented Eyes: Normal Ear: Normal Nose: Normal Respiratory: Normal Cardiovascular: Normal Auscultation: Bowel Sounds: Normal Palpation: Normal Tenderness: Normal Skin: Normal Musculoskeletal: Back:Lumbar, Back:Paraspinous and Tender Psychiatric: Anxiety, Depression and Agitation Mood Description: Apathetic, Depressed, Flat and Suspicious; negative Calm, Angry, Fearful, Happy, Hostile, Sad, Withdrawn, Anxious, Appropriate or Labile Affect: Anxious, Depressed and Flat; negative Angry, Hysterical, Quiet, Violent or Normal Speech Pattern: Clear and Appropriate Laboratory and Diagnostics 03/22/24 07:19 03/22/24 07:19 Labs: Laboratory WBC 4.0 X10^3/uL (3.6-10.0) 03/22/24 07:19 RBC 2.79 X10^6/uL (4.7-6.0) L 03/22/24 07:19 Hgb 8.5 g/dL (13.5-18.0) L 03/22/24 07:19 Hct 25.7 % (42.0-54.0) L 03/22/24 07:19 MCV 92.2 fL (80.0-100.0) 03/22/24 07:19 MCH 30.5 pg (27.0-34.0) 03/22/24 07:19 MCHC 33.1 g/dL (33.0-35.0) 03/22/24 07:19 RDW 17.4 % (11.6-16.5) H 03/22/24 07:19 Plt Count 149 X10^3/uL (150.0-450.0) L 03/22/24 07:19 Plt Count Comment Adequate (ADEQUATE) 03/22/24 07:19 MPV 9.5 fL (7.4-11.0) 03/22/24 07:19 Neut % (Auto) 44.8 % (42.0-75.0) 03/22/24 07:19 Lymph % (Auto) 47.3 % (21.0-51.0) 03/22/24 07:19 [place] % (Auto) 5.0 % (0.0-13.0) 03/22/24 07:19 Eos % (Auto) 1.0 % (0.9-2.9) 03/22/24 07:19 Baso % (Auto) 1.9 % (0.2-1.0) H 03/22/24 07:19 Neut # (Auto) 1.8 x10^3/uL (2.2-4.8) L 03/22/24 07:19 Lymph # (Auto) 1.9 X10^3/uL (1.3-2.9) 03/22/24 07:19 [place] # (Auto) 0.2 x10^3/uL (0.3-0.8) L 03/22/24 07:19 Eos # (Auto) 0.0 x10^3/uL (0.0-0.2) 03/22/24 07:19 Baso # (Auto) 0.1 X10^3/uL (0.0-0.1) 03/22/24 07:19 Absolute Nucleated RBC 0.4 /100WBC 03/22/24 07:19 Plt Morphology Comment Normal (NORMAL) 03/22/24 07:19 RBC Morphology Abnormal (NORMAL) 03/22/24 07:19 Poikilocytosis Slight A 03/22/24 07:19 Anisocytosis Slight A 03/22/24 07:19 Target Cells 1+ A 03/22/24 07:19 Rouleaux Present 03/22/24 07:19 Sodium 139 mmol/L (136-145) 03/22/24 07:19 Corrected Sodium 140 mmol/L (136-145) 03/22/24 07:19 Potassium 3.9 mmol/L (3.5-5.1) 03/22/24 07:19 Chloride 106 mmol/L (98-107) 03/22/24 07:19 Carbon Dioxide 27.4 mmol/L (21-32) 03/22/24 07:19 BUN 12 mg/dL (7-18) 03/22/24 07:19 Creatinine 1.20 mg/dL (0.70-1.30) 03/22/24 07:19 Est GFR (MDRD) Af Amer > 60 (>60) 03/22/24 07:19 Est GFR (MDRD) Non-Af > 60 (>60) 03/22/24 07:19 Glucose 126 mg/dL (65-99) H 03/22/24 07:19 Calcium 9.0 mg/dL (8.5-10.1) 03/22/24 07:19 Corrected Calcium 10.8 mg/dL (8.5-10.1) H 03/22/24 07:19 Magnesium 1.5 mg/dL (2.0-2.9) L 03/20/24 05:14 Total Bilirubin 0.40 mg/dL (0.2-1.0) 03/22/24 07:19 AST 64 Units/L (15-37) H 03/22/24 07:19 ALT 34 Units/L (12-78) 03/22/24 07:19 Alkaline Phosphatase 148 Units/L (46-116) H 03/22/24 07:19 Total Protein 7.3 g/dL (6.4-8.2) 03/22/24 07:19 Albumin 1.7 g/dL (3.4-5.0) L 03/22/24 07:19 Globulin 5.6 g/dL (2.5-4.5) H 03/22/24 07:19 Albumin/Globulin Ratio 0.3 Ratio (1.1-2.1) L 03/22/24 07:19 Specimen Type Catherized urine 03/22/24 09:20 Urine Color Dark yellow (YELLOW) 03/22/24 09:20 Urine Appearance Hazy (CLEAR) 03/22/24 09:20 Urine pH 8.0 (5.0 - 8.0) 03/22/24 09:20 Ur Specific [place] 1.020 (1.000-1.030) 03/22/24 09:20 Urine Protein 2+ (NEGATIVE) 03/22/24 09:20 Urine Glucose (UA) Negative (NEGATIVE) 03/22/24 09:20 Urine Ketones Negative (NEGATIVE) 03/22/24 09:20 Urine Blood 5+ (NEGATIVE) 03/22/24 09:20 Urine Nitrite Negative (NEGATIVE) 03/22/24 09:20 Urine Bilirubin Negative (NEGATIVE) 03/22/24 09:20 Urine Urobilinogen Normal (NORMAL) 03/22/24 09:20 Ur Leukocyte Esterase 3+ (NEGATIVE) 03/22/24 09:20 Urine RBC 10-20 /HPF (0-3) A 03/22/24 09:20 Urine WBC 5-10 /HPF (0-5) A 03/22/24 09:20 Ur Squamous Epith Cells Rare /HPF (NEGATIVE) 03/22/24 09:20 Urine Bacteria 3+ /HPF (NEGATIVE) 03/22/24 09:20 Ur Culture Indicated? Yes/culture set up 03/22/24 09:20 Plan (1) Alcohol use disorder, severe, in early remission: Status: Acute (2) Lack of motivation: Status: Acute (3) Generalized weakness: Status: Acute (4) Major depression: Status: Acute Qualifiers: Major depression recurrence: recurrent Active/Remission status: currently active Major depression episode severity: moderate Qualified Code(s): F33.1 - Major depressive disorder, recurrent, moderate (5) Osteoarthritis (arthritis due to wear and tear of joints): Status: Chronic Qualifiers: Osteoarthritis location: foot (6) Ataxia: Status: Acute (7) Degenerative disc disease, lumbar: Status: Acute (8) Acute human immunodeficiency virus (HIV) infection: Status: None (9) Hypertension: Status: None (10) Hypercholesterolemia: Status: None (11) Hallucination, visual: Status: Acute Plan: Plan/Recommendations I plan to start the patient on Seroquel 25 mg BID to address potential hallucinations or confusion. We will monitor his response to this medication. I've also ordered a head CT scan if his condition doesn't improve. I've requested to be updated on what the physical therapist says about the patient's willingness to participate in therapy. If the patient refuses to work with the therapist, we may consider discharging him home. The patient has not made any significant improvement since being admitted to [facility] last week we will plan on starting long-term placement with him and discussed this with his significant other.
[2024-03-23 05:58] LABS: ALANINE AMINOTRANSFERASE 43 Units/L (12-78); ALBUMIN 1.7 g/dL (3.4-5.0); ALKALINE PHOSPHATASE 175 Units/L (46-116); ASPARTATE AMINO TRANSFERASE 102 Units/L (15-37); BLOOD UREA NITROGEN 17 mg/dL (7-18); CALCIUM 9.4 mg/dL (8.5-10.1); CARBON DIOXIDE 30.6 mmol/L (21-32); CHLORIDE 108 mmol/L (98-107); COR CA(FOR HYPOALB) 11.2 mg/dL (8.5-10.1); CREATININE 1.38 mg/dL (0.70-1.30); GLUCOSE 86 mg/dL (65-99); MAGNESIUM 1.9 mg/dL (2.0-2.9); POTASSIUM 3.8 mmol/L (3.5-5.1); SODIUM 141 mmol/L (136-145); TOTAL PROTEIN 7.7 g/dL (6.4-8.2); eGFR NON BLACK RACES 55 (>60)
[2024-03-23 06:05] LABS: BASOPHILS % (AUTO) 0.4 % (0.2-1.0); EOSINOPHILS % (AUTO) 0.3 % (0.9-2.9); HEMATOCRIT 23.9 % (42.0-54.0); HEMOGLOBIN 8.7 g/dL (13.5-18.0); LYMPHOCYTES # (AUTO) 1.7 X10^3/uL (1.3-2.9); LYMPHOCYTES % (AUTO) 21.4 % (21.0-51.0); MEAN CORPUSCULAR HEMOGLOBIN 35.9 pg (27.0-34.0); MEAN CORPUSCULAR HGB CONC 36.3 g/dL (33.0-35.0); MEAN CORPUSCULAR VOLUME 98.9 fL (80.0-100.0); MEAN PLATELET VOLUME 9.6 fL (7.4-11.0); MONOCYTES # (AUTO) 0.5 x10^3/uL (0.3-0.8); MONOCYTES % (AUTO) 6.3 % (0.0-13.0); NEUTROPHILS # (AUTO) 5.7 x10^3/uL (2.2-4.8); NEUTROPHILS % (AUTO) 71.6 % (42.0-75.0); PLATELET COUNT 138 X10^3/uL (150.0-450.0); RED BLOOD COUNT 2.42 X10^6/uL (4.7-6.0); RED CELL DISTRIBUTION WIDTH 17.4 % (11.6-16.5)
[2024-03-23] MEDS ORDERED: CONSULT PHARMACY - POTASSIUM & MAGNESIUM XX SCH (07:00)
[2024-03-23] MEDS: VIIBRYD PO SCH (08:53)
[2024-03-23] MEDS: MAG-OX TAB PO SCH (08:54)
[2024-03-23] MEDS: K-DUR TAB 20 MEQ PO SCH (08:55)
[2024-03-23] MEDS: ALBUMIN HUMAN 25%- 100 ML 100 ML IV SCH (10:19)
--- NOTE | 2024-03-23 11:17 | CT ---
EXAM:BRAIN W/O CONHISTORY:AMS; HTNCOMPARISON:Prior study or studies were utilized for comparison during interpretation with the most relevant dated 10/09/2023TECHNIQUE:CT images were obtained. Multiplanar reconstructions were created on a separate workstation and used during interpretation. All CT scans at this facility is dose modulation, iterative reconstruction, and/or weight-based dosing as appropriate to reduce radiation to levels as low as reasonably achievable (ALARA). Postprocessing details, radiation dose, and contrast dose (if applicable) are recorded in the patient's medical record.FINDINGS:Head:Acute findings: There is no intracranial hemorrhage. No mass effect. No intra-axial or extra-axial fluid collection. There is no mass. No tentorial, uncal, or tonsillar herniation.Brain volume and white matter: There is diffuse cortical atrophy. There is hypoattenuation in the supratentorial white matter consistent with chronic microvascular ischemic disease.Ventricles: No hydrocephalusMidline structures: Pituitary gland and corpus callosum are normal.Posterior fossa and skull base: Cerebellum and posterior fossa are within normal limits. Basal cisterns are not effaced.Sinuses and mastoids: Paranasal sinuses and mastoid air cells are predominantly clear.Globes and Orbits: Globes are intact. Bony orbits are intact. Orbital contents are unremarkable.Skull and soft tissues: No depressed skull fracture. Calvarium appears intact. No scalp injury is identified.IMPRESSION:1. No acute intracranial abnormalityTHIS IS AN ELECTRONICALLY VERIFIED FINAL [id number]/23/2024 11:14 AM - Electronically signed by Sam Stallings MD
[2024-03-23] MEDS: PATIENT'S HOME MEDICATION PO SCH (14:24)
[2024-03-23 20:16] VITALS: RESP 19; O2SAT 97
[2024-03-24 07:55] VITALS: BP 161/85; PULSE 73; TEMP 98.7
== END 2024-03-24 10:41 | DRG 897 ==
LOC: ICU 09:00 → MED/SURG 18:46
PROVIDERS: ADMIT Family Medicine; ATTEND Family Medicine
DX: B96.1 Klebsiella pneumoniae [K. pneumoniae] as the cause of diseases classified elsewhere; F10.288 Alcohol dependence with other alcohol-induced disorder; B20 Human immunodeficiency virus [HIV] disease; R53.1 Weakness; Z16.19 Resistance to other specified beta lactam antibiotics; E78.00 Pure hypercholesterolemia, unspecified; R44.1 Visual hallucinations; Z16.11 Resistance to penicillins; Z16.12 Extended spectrum beta lactamase (ESBL) resistance; Z51.89 Encounter for other specified aftercare; R41.82 Altered mental status, unspecified; F33.1 Major depressive disorder, recurrent, moderate; R27.0 Ataxia, unspecified; N39.0 Urinary tract infection, site not specified; M19.90 Unspecified osteoarthritis, unspecified site; I10 Essential (primary) hypertension; Z16.29 Resistance to other single specified antibiotic

== ENCOUNTER 2024-07-22 16:41 | Observation (INO) ==
[2024-07-22 17:12] VITALS: BMI 21.0
[2024-07-22] MEDS: NS 1,000 ML IV 1,000 ML IV ONE ×3 (17:38→19:47)
--- NOTE | 2024-07-22 17:46 | EKG ---
Test Reason : weakness Blood Pressure : */* mmHG Vent. Rate : 91 BPM Atrial Rate : 91 BPM P-R Int : 138 ms QRS Dur : 72 ms QT Int : 378 ms P-R-T Axes : 19 32 49 degrees QTc Int : 464 ms Normal sinus rhythm Septal infarct (cited on or before 28-JUN-2024) Abnormal ECG When compared with ECG of 28-JUN-2024 16:38, No significant change was found Confirmed by Philippe Kunz MD ([id number]) on 07/23/2024 6:28:53 AM Referred By: Confirmed By: Philippe Kunz MD
[2024-07-22 17:51] LABS: HEMOGLOBIN 12.1 g/dL (13.5-18.0); MONOCYTES # (AUTO) 0.5 x10^3/uL (0.3-0.8); PLATELET COUNT 123 X10^3/uL (150.0-450.0); RED CELL DISTRIBUTION WIDTH 20.1 % (11.6-16.5)
[2024-07-22 18:01] LABS: BASOPHILS # (AUTO) 0.1 X10^3/uL (0.0-0.1); BASOPHILS % (AUTO) 1.6 % (0.2-1.0); EOSINOPHILS % (AUTO) 0.5 % (0.9-2.9); HEMATOCRIT 34.6 % (42.0-54.0); LYMPHOCYTES # (AUTO) 1.6 X10^3/uL (1.3-2.9); LYMPHOCYTES % (AUTO) 34.3 % (21.0-51.0); MEAN CORPUSCULAR HEMOGLOBIN 33.7 pg (27.0-34.0); MEAN CORPUSCULAR HGB CONC 34.9 g/dL (33.0-35.0); MEAN CORPUSCULAR VOLUME 96.7 fL (80.0-100.0); MEAN PLATELET VOLUME 10.1 fL (7.4-11.0); NEUTROPHILS # (AUTO) 2.5 x10^3/uL (2.2-4.8); NEUTROPHILS % (AUTO) 53.6 % (42.0-75.0); RED BLOOD COUNT 3.57 X10^6/uL (4.7-6.0); WHITE BLOOD COUNT 4.8 X10^3/uL (3.6-10.0)
[2024-07-22 18:13] LABS: ALANINE AMINOTRANSFERASE 53 Units/L (12-78); ALBUMIN 3.9 g/dL (3.4-5.0); ALKALINE PHOSPHATASE 127 Units/L (46-116); ASPARTATE AMINO TRANSFERASE 138 Units/L (15-37); BLOOD ALCOHOL 23 mg/dL (0-19.9); BLOOD UREA NITROGEN 24 mg/dL (7-18); CALCIUM 9.8 mg/dL (8.5-10.1); CARBON DIOXIDE 21.1 mmol/L (21-32); CHLORIDE 95 mmol/L (98-107); CREATINE KINASE 54 Units/L (39-308); CREATININE 3.72 mg/dL (0.70-1.30); GLUCOSE 83 mg/dL (65-99); MAGNESIUM 0.9 mg/dL (2.0-2.9); POTASSIUM 3.8 mmol/L (3.5-5.1); SODIUM 136 mmol/L (136-145); TOTAL PROTEIN 9.7 g/dL (6.4-8.2); eGFR NON BLACK RACES 18 (>60)
[2024-07-22 18:26] LABS: INR 1.07 (0.8-1.3)
[2024-07-22 18:30] LABS: ANISOCYTOSIS 1+; PLATELET MORPHOLOGY COMMENT NORMAL (NORMAL); TARGET CELLS SLIGHT
--- NOTE | 2024-07-22 19:58 | RAD ---
EXAM:FRONTAL VIEW CHEST X-RAYHISTORY:WeaknessCOMPARISON:06/29/19 25FINDINGS:No focal consolidation is seen.The heart size is within normal limits.The mediastinum is unremarkable.There is no evidence of pleural effusion or gross pneumothorax.The trachea is midline.IMPRESSION:No focal consolidation is seen.The heart size is normal.THIS IS AN ELECTRONICALLY VERIFIED FINAL REPORT07/22/2024 7:54 PM - Electronically signed by Demetrius Floyd MD
[2024-07-22 20:53] LABS: BILIRUBIN,URINE 1+ (NEGATIVE); BLOOD/HEMOGLOBIN,URINE 1+ (NEGATIVE); GLUCOSE, URINE NEGATIVE (NEGATIVE); KETONES,URINE 2+ (NEGATIVE); LEUKOCYTE ESTERASE ,URINE 2+ (NEGATIVE); NITRITES,URINE NEGATIVE (NEGATIVE); PROTEIN,URINE 2+ (NEGATIVE); UROBILINOGEN,URINE 1+ (NORMAL)
[2024-07-22 21:02] LABS: APPEARANCE,URINE SLIGHTLY HAZY (CLEAR); COLOR,URINE AMBER (YELLOW)
[2024-07-22 21:03] LABS: BACTERIA,URINE 1+ /HPF (NEGATIVE); HYALINE CASTS, URINE MODERATE /LPF (NEGATIVE); SQUAMOUS EPITHELIAL CELL,UR FEW /HPF (NEGATIVE)
[2024-07-22 21:25] LABS: BLOOD UREA NITROGEN 26 mg/dL (7-18); CALCIUM 8.7 mg/dL (8.5-10.1); CARBON DIOXIDE 22.8 mmol/L (21-32); CHLORIDE 100 mmol/L (98-107); CREATININE 3.18 mg/dL (0.70-1.30); GLUCOSE 89 mg/dL (65-99); POTASSIUM 3.9 mmol/L (3.5-5.1); SODIUM 137 mmol/L (136-145); eGFR NON BLACK RACES 21 (>60)
--- NOTE | 2024-07-22 23:15 | DR.DIZZY ---
HPI Time seen Time Seen by Provider: 07/22/24 17:11 PCP Primary Care Physician: Princess Grigsby Complaint Chief Complaint Doctor Comments: 63 yo M, hx alcoholism, comes to ER for increasing weakness over the past 2-3 weeks. Admits to drinking 1.5 "fifths" of vodka per day. Chief Complaint:: Pt states he has been weak, no energy "for a while". Has been home from [facility] x1.5 month and "has been in the bed because there ain't nothing else to do" since home from [place]. He was placed in [place] for rehab d/t weakness. Pt states he has chronic back pain, 10/28. COVID-19 Coronavirus risk:travel/contact w/high risk person: No Has patient experienced Coronavirus symptoms: No Source History Provided: Patient Mode of Arrival Mode of Arrival: Wheelchair Timing Onset of Chief Complaint: 07/22/24 Context Stroke Symptoms: None PMH PMH Past Medical History: Yes Past Medical History: Anxiety, Depression, Dyslipidemia, GERD and Hypertension Past Medical History Comment: HIV +, chronic alcohol abuse, chronic back pain Past Surgical History: Yes Surgical History: Ortho Surgery Family History History of Family Medical Conditions: Yes Family Medical History: Hypertension Social History Does patient currently use any type of tobacco product: No Have you used tobacco products in the last 12 months: No Alcohol Use: Heavy Do you use any recreational Drugs:: No Lives With: Spouse Lives Where: Home Travel Risk Coronavirus risk:travel/contact w/high risk person: No Has patient experienced Coronavirus symptoms: No Infectious screening In the last 2 months have you had wt loss of >10#?: NO Have you had fever, night sweats or hemotysis?: No Have you traveled outside the country in the last 6 months?: No Isolation: Standard ROS Review of Systems Constitutional: Weakness All Other Systems: Reviewed and Negative PE Vital Signs Vitals: Vital Signs Temperature 97.7 F Pulse Rate 78 Pulse Rate 89 Pulse Rate 83 Pulse Rate 85 Pulse Rate 81 Pulse Rate 80 Pulse Rate 79 Pulse Rate 84 Pulse Rate 80 Pulse Rate 80 Pulse Rate 86 Pulse Rate 79 Pulse Rate 75 Pulse Rate 84 Pulse Rate 76 Pulse Rate 74 Pulse Rate 75 Pulse Rate 76 Pulse Rate 77 Pulse Rate 78 Pulse Rate 72 Pulse Rate 74 Pulse Rate 77 Pulse Rate 89 Pulse Rate 91 Pulse Rate 99 Pulse Rate 91 Pulse Rate 93 Pulse Rate 93 Pulse Rate 115 Respiratory Rate 18 Respiratory Rate 26 Respiratory Rate 30 Respiratory Rate 31 Respiratory Rate 28 Respiratory Rate 24 Respiratory Rate 27 Respiratory Rate 35 Respiratory Rate 21 Respiratory Rate 21 Respiratory Rate 22 Respiratory Rate 23 Respiratory Rate 20 Respiratory Rate 19 Respiratory Rate 23 Respiratory Rate 23 Respiratory Rate 27 Respiratory Rate 31 Respiratory Rate 32 Respiratory Rate 27 Respiratory Rate 30 Respiratory Rate 32 Respiratory Rate 18 Blood Pressure 152/76 Blood Pressure 148/71 Blood Pressure 140/67 Blood Pressure 132/65 Blood Pressure 141/74 Blood Pressure 160/88 Blood Pressure 173/85 Blood Pressure 167/87 Blood Pressure 143/87 Blood Pressure 164/84 Blood Pressure 179/93 Blood Pressure 87/60 Blood Pressure 118/73 Blood Pressure 76/50 O2 Sat by Pulse Oximetry 100 O2 Sat by Pulse Oximetry 98 O2 Sat by Pulse Oximetry 95 O2 Sat by Pulse Oximetry 95 O2 Sat by Pulse Oximetry 95 O2 Sat by Pulse Oximetry 98 O2 Sat by Pulse Oximetry 99 O2 Sat by Pulse Oximetry 100 O2 Sat by Pulse Oximetry 100 O2 Sat by Pulse Oximetry 99 O2 Sat by Pulse Oximetry 100 O2 Sat by Pulse Oximetry 100 O2 Sat by Pulse Oximetry 100 O2 Sat by Pulse Oximetry 100 O2 Sat by Pulse Oximetry 100 O2 Sat by Pulse Oximetry 100 O2 Sat by Pulse Oximetry 100 O2 Sat by Pulse Oximetry 100 O2 Sat by Pulse Oximetry 100 O2 Sat by Pulse Oximetry 100 O2 Sat by Pulse Oximetry 100 O2 Sat by Pulse Oximetry 100 O2 Sat by Pulse Oximetry 100 O2 Sat by Pulse Oximetry 100 O2 Sat by Pulse Oximetry 99 O2 Sat by Pulse Oximetry 98 O2 Sat by Pulse Oximetry 99 O2 Sat by Pulse Oximetry 96 General Limitations: No Limitations General Appearance: Alert and In No Apparent Distress Head Head Exam: Normal Inspection Eyes Eye exam: Normal Appearance ENT ENT Exam: Normal Exam, Normal Oropharynx and Normal External Ear Exam Neck Neck Exam: Normal Inspection and Full ROM Chest Chest Inspection: Normal Inspection Respiratory Respiratory Exam: Normal Lung Sounds Bilat Cardiovascular Cardiovascular Exam: Regular Rate and Normal Rhythm Abdominal Exam Abdominal Exam: Normal Inspection, Normal Bowel Sounds and Soft Rectal Rectal Exam: Deferred Extremeties Extremities Exam: Normal Inspection and Full ROM Back Back Exam: Normal Inspection and Full ROM Neurologic Neurological Exam: Alert and Oriented X3 Psychiatric Psychiatric Exam: Normal Affect and Normal Mood Skin Skin Exam: Warm, Dry, Intact and Normal Color ROR Labs Reviewed Laboratory Results Reviewed?: Yes 07/22/24 17:39 07/22/24 21:12 Laboratory: WBC 4.8 X10^3/uL (3.6-10.0) 07/22/24 17:39 RBC 3.57 X10^6/uL (4.7-6.0) L 07/22/24 17:39 Hgb 12.1 g/dL (13.5-18.0) L 07/22/24 17:39 Hct 34.6 % (42.0-54.0) L 07/22/24 17:39 MCV 96.7 fL (80.0-100.0) 07/22/24 17:39 MCH 33.7 pg (27.0-34.0) 07/22/24 17:39 MCHC 34.9 g/dL (33.0-35.0) 07/22/24 17:39 RDW 20.1 % (11.6-16.5) H 07/22/24 17:39 Plt Count 123 X10^3/uL (150.0-450.0) L 07/22/24 17:39 Plt Count Comment Decreased (ADEQUATE) 07/22/24 17:39 MPV 10.1 fL (7.4-11.0) 07/22/24 17:39 Neut % (Auto) 53.6 % (42.0-75.0) 07/22/24 17:39 Lymph % (Auto) 34.3 % (21.0-51.0) 07/22/24 17:39 [place] % (Auto) 10.0 % (0.0-13.0) 07/22/24 17:39 Eos % (Auto) 0.5 % (0.9-2.9) L 07/22/24 17:39 Baso % (Auto) 1.6 % (0.2-1.0) H 07/22/24 17:39 Neut # (Auto) 2.5 x10^3/uL (2.2-4.8) 07/22/24 17:39 Lymph # (Auto) 1.6 X10^3/uL (1.3-2.9) 07/22/24 17:39 [place] # (Auto) 0.5 x10^3/uL (0.3-0.8) 07/22/24 17:39 Eos # (Auto) 0.0 x10^3/uL (0.0-0.2) 07/22/24 17:39 Baso # (Auto) 0.1 X10^3/uL (0.0-0.1) 07/22/24 17:39 Absolute Nucleated RBC 0.4 /100WBC 07/22/24 17:39 Plt Morphology Comment Normal (NORMAL) 07/22/24 17:39 RBC Morphology Abnormal (NORMAL) 07/22/24 17:39 Anisocytosis 1+ A 07/22/24 17:39 Target Cells Slight A 07/22/24 17:39 PT 13.7 SECONDS (11.8-14.3) 07/22/24 17:39 INR Target Range - 07/22/24 17:39 INR 1.07 (0.8-1.3) 07/22/24 17:39 APTT 24.9 SECONDS (22.9-36.5) 07/22/24 17:39 PTT Comment - 07/22/24 17:39 Sodium 137 mmol/L (136-145) 07/22/24 21:12 Corrected Sodium TNP 07/22/24 21:12 Potassium 3.9 mmol/L (3.5-5.1) 07/22/24 21:12 Chloride 100 mmol/L (98-107) 07/22/24 21:12 Carbon Dioxide 22.8 mmol/L (21-32) 07/22/24 21:12 BUN 26 mg/dL (7-18) H 07/22/24 21:12 Creatinine 3.18 mg/dL (0.70-1.30) H 07/22/24 21:12 Est GFR (MDRD) Af Amer 26 (>60) L 07/22/24 21:12 Est GFR (MDRD) Non-Af 21 (>60) L 07/22/24 21:12 Glucose 89 mg/dL (65-99) 07/22/24 21:12 Calcium 8.7 mg/dL (8.5-10.1) 07/22/24 21:12 Corrected Calcium TNP 07/22/24 17:39 Magnesium 0.9 mg/dL (2.0-2.9) L 07/22/24 17:39 Total Bilirubin 0.70 mg/dL (0.2-1.0) 07/22/24 17:39 AST 138 Units/L (15-37) H 07/22/24 17:39 ALT 53 Units/L (12-78) 07/22/24 17:39 Alkaline Phosphatase 127 Units/L (46-116) H 07/22/24 17:39 Creatine Kinase 54 Units/L (39-308) 07/22/24 17:39 Troponin I High Sens 8.5 ng/L (4.0-60.0) 07/22/24 17:39 B-Natriuretic Peptide 12.2 pg/mL (0-79) 07/22/24 17:39 Total Protein 9.7 g/dL (6.4-8.2) H 07/22/24 17:39 Albumin 3.9 g/dL (3.4-5.0) 07/22/24 17:39 Globulin 5.8 g/dL (2.5-4.5) H 07/22/24 17:39 Albumin/Globulin Ratio 0.7 Ratio (1.1-2.1) L 07/22/24 17:39 Specimen Type Clean catch urine 07/22/24 20:02 Urine Color Anjelica (YELLOW) 07/22/24 20:02 Urine Appearance Slightly hazy (CLEAR) 07/22/24 20:02 Urine pH 5.0 (5.0 - 8.0) 07/22/24 20:02 Ur Specific [place] 1.020 (1.000-1.030) 07/22/24 20:02 Urine Protein 2+ (NEGATIVE) 07/22/24 20: Urine Glucose (UA) Negative (NEGATIVE) 07/22/24 20: Urine Ketones 2+ (NEGATIVE) 07/22/24 20: Urine Blood 1+ (NEGATIVE) 07/22/24 20: Urine Nitrite Negative (NEGATIVE) 07/22/24 20:02 Urine Bilirubin 1+ (NEGATIVE) 07/22/24 20: Urine Urobilinogen 1+ (NORMAL) 07/22/24 20: Ur Leukocyte Esterase 2+ (NEGATIVE) 07/22/24 20:02 Urine RBC 3-5 /HPF (0-3) A 07/22/24 20:02 Urine WBC 10-20 /HPF (0-5) A 07/22/24 20:02 Ur Squamous Epith Cells Few /HPF (NEGATIVE) 07/22/24 20:02 Amorphous Sediment 1+ /HPF (NEGATIVE) 07/22/24 20:02 Urine Bacteria 1+ /HPF (NEGATIVE) 07/22/24 20:02 Hyaline Casts Moderate /LPF (NEGATIVE) 07/22/24 20:02 Ur Culture Indicated? Yes/culture set up 07/22/24 20:02 Ethyl Alcohol mg/dL 23 mg/dL (0-19.9) H 07/22/24 17:39 Opioid Opioid Risk Tool Family Hx of Substance Abuse: Alcohol Personal Hx of Substance Abuse: Alcohol Age (Harshad box if 16-45): No History of Preadolescent Sexual Abuse: No Psychological Disease: Depression Total: 0 Total Score Risk Category: Low Risk Copyright: Danilo TORRES predicting aberrant behaviors Discharge Plan Diagnosis Discharge Problem: MALACHI (acute kidney injury), Acute dehydration, Alcoholism Discharge Plan Patient Disposition: 09 ADMITTED INPATIENT Condition: Stable Prescriptions: No Action gabapentin 600 mg tablet 600 mg PO TID Qty: 270 3RF Genvoya [phone] mg tablet 150 tab PO QDAY folic acid 400 mcg tablet 0.4 mg PO QDAY thiamine mononitrate (vit B1) [Vitamin B-1 (mononitrate)] 100 mg tablet 100 mg PO QDAY Genvoya [phone] mg tablet 1 tab PO QDAY fluoxetine 40 mg capsule 80 mg PO QAM folic acid 400 mcg tablet 0.4 mg PO QDAY magnesium hydroxide [Milk of Magnesia] 400 mg/5 mL Suspension 60 ml PO QDAY Qty: 240 0RF pantoprazole [Protonix] 40 mg Tablet,Delayed Release (Dr/Ec) 40 mg PO QDAY Qty: 30 0RF losartan [Cozaar] 100 mg Tablet 100 mg PO QDAY Qty: 10 0RF alum-mag hydroxide-simeth [Maalox Maximum Strength] 400-400-40 mg/5 mL Suspension 10 ml PO TID PRNQty: 120 0RF magnesium oxide 400 mg magnesium Capsule 400 mg PO BID Qty: 30 0RF ondansetron 4 mg Tablet,Disintegrating 4 mg PO Q6H PRNQty: 30 0RF ciprofloxacin HCl [Cipro] 500 mg Tablet 500 mg PO Q12H Qty: 20 0RF vilazodone 10 mg Tablet 10 mg PO QDAY Qty: 30 0RF Rx Instructions: must administer with a meal/food Health Concerns: Post Hospitalization: new medications and changes needed to prevent readmission or further decline. Pt educated and given instructions on all concerns. Plan of Treatment: Continue with present treatment and follow up plan. Pt is to keep follow up appointment as instructed and take medications as ordered. Orders to Discharge Patient Discharge Orders: Transfer (Routine); Ordered 07/22/24 Ordered By: Gurjit Romo Follow ups/Referrals Follow ups/Referrals: [facility],None [Primary Care Provider] - 3 days Instructions Stand Alone Forms: Find Help Web Site, Post Hospital Follow Up Care ADDITIONAL NOTES Additional Notes Additional Notes: Admitted to Dr Grajeda
[2024-07-23] MEDS ORDERED: CONSULT PHARMACY - POTASSIUM & MAGNESIUM XX SCH (01:00)
[2024-07-23 05:44] LABS: BASOPHILS % (AUTO) 0.5 % (0.2-1.0); EOSINOPHILS % (AUTO) 0.7 % (0.9-2.9); HEMATOCRIT 28.1 % (42.0-54.0); HEMOGLOBIN 9.6 g/dL (13.5-18.0); LYMPHOCYTES # (AUTO) 1.6 X10^3/uL (1.3-2.9); LYMPHOCYTES % (AUTO) 41.7 % (21.0-51.0); MEAN CORPUSCULAR HEMOGLOBIN 32.6 pg (27.0-34.0); MEAN CORPUSCULAR HGB CONC 34.3 g/dL (33.0-35.0); MEAN PLATELET VOLUME 10.7 fL (7.4-11.0); MONOCYTES # (AUTO) 0.5 x10^3/uL (0.3-0.8); MONOCYTES % (AUTO) 14.4 % (0.0-13.0); NEUTROPHILS # (AUTO) 1.6 x10^3/uL (2.2-4.8); NEUTROPHILS % (AUTO) 42.7 % (42.0-75.0); PLATELET COUNT 84 X10^3/uL (150.0-450.0); RED BLOOD COUNT 2.96 X10^6/uL (4.7-6.0); RED CELL DISTRIBUTION WIDTH 20.6 % (11.6-16.5); WHITE BLOOD COUNT 3.8 X10^3/uL (3.6-10.0)
[2024-07-23 06:00] LABS: ANISOCYTOSIS 1+; PLATELET MORPHOLOGY COMMENT NORMAL (NORMAL)
[2024-07-23 06:01] LABS: STOMATOCYTES SLIGHT; TARGET CELLS SLIGHT
[2024-07-23 06:05] LABS: ALANINE AMINOTRANSFERASE 40 Units/L (12-78); ALBUMIN 2.9 g/dL (3.4-5.0); ALKALINE PHOSPHATASE 97 Units/L (46-116); ASPARTATE AMINO TRANSFERASE 90 Units/L (15-37); BLOOD UREA NITROGEN 26 mg/dL (7-18); CALCIUM 8.3 mg/dL (8.5-10.1); CHLORIDE 103 mmol/L (98-107); COR CA(FOR HYPOALB) 9.2 mg/dL (8.5-10.1); CREATININE 2.49 mg/dL (0.70-1.30); GLUCOSE 87 mg/dL (65-99); MAGNESIUM 0.9 mg/dL (2.0-2.9); POTASSIUM 3.7 mmol/L (3.5-5.1); SODIUM 138 mmol/L (136-145); TOTAL PROTEIN 7.4 g/dL (6.4-8.2); eGFR NON BLACK RACES 28 (>60)
[2024-07-23] MEDS: NS 1,000 ML IV 1,000 ML IV PRN (06:27)
[2024-07-23] MEDS ORDERED: MAGNESIUM SULFATE 1 GRAM/100 mL PREMIX 1 G/100 ML BAG IV SCH (09:00)
[2024-07-23] MEDS ORDERED: K-RIDER 10 MEQ/100 ML WATER 10 MEQ/100 ML BAG IV SCH (09:00)
--- NOTE | 2024-07-23 09:07 | DR.SSS ---
SHORT STAY SUMMARY Admission Date Date of Admission: 07/22/24 Discharge Date Discharge Date: 07/23/24 Admission Diagnoses Admission Diagnoses: acute kidney injury Discharge Diagnoses Discharge Diagnoses: Acute kidney injury, alcoholism, anemia Chief Complaint Chief Complaint: Weakness History of Present Illness History of Present Illness: Patient presented to the ER with worsening weakness. Does admit to heavy alcohol use. Has nonalcoholic fatty liver disease. Has a history of CKD but was found to have an acute kidney injury with creatinine greater than twice is normal high. No other acute issues. 12 point ROS significant for generalized weakness, fatigue, and chronic back pain. PE: Well-developed, well-nourished male in no acute distress. Hearing intact conversation, head NCAT, EOMI, trachea midline. Heart regular rate and rhythm. Lungs clear bilaterally. Belly is soft and nontender with bowel sounds present. No edema of his extremities. Mood and affect are appropriate and patient is easily awakened. Past Medical History Past Medical History: Anxiety, Depression, Dyslipidemia, GERD and Hypertension Additional Medical History: HIV positive, chronic low back pain and anxiety, alcohol use disorder Past Surgical History Surgical History: Ortho Surgery Allergies Allergies Allergy/AdvReac Type Severity Reaction Status Date / Time No Known Drug Allergies Allergy Unknown Verified 06/28/24 19:17 Medications Home Medications: No Known Drug Allergies Allergy (Unknown, Verified 06/28/24 19:17) CONTINUE taking the following medications omeprazole 20 mg capsule,delayed release 20 mg PO QDAY 07/22/24 [History] potassium chloride 20 mEq tablet,extended release(part/cryst) 20 meq PO QDAY 07/22/24 [History] Family History Family Medical History: Hypertension Social History Does patient currently use any type of tobacco product: No Have you used tobacco products in the last 12 months: No Alcohol Use: Heavy Drug Use: None Physical Exam Vital Signs: Last Vital Signs Temp 98.5 F 07/23/24 04:00 Pulse 75 07/23/24 06:09 Resp 17 07/23/24 06:09 BP 136/67 07/23/24 06:09 Pulse Ox 98 07/23/24 06:09 O2 Del Method Room Air 07/22/24 23:45 FiO2 21 03/16/24 20:00 Labs Labs: Laboratory Last Values WBC 3.8 X10^3/uL (3.6-10.0) 07/23/24 04:15 RBC 2.96 X10^6/uL (4.7-6.0) L 07/23/24 04:15 Hgb 9.6 g/dL (13.5-18.0) L D 07/23/24 04:15 Hct 28.1 % (42.0-54.0) L 07/23/24 04:15 MCV 95.0 fL (80.0-100.0) 07/23/24 04:15 MCH 32.6 pg (27.0-34.0) 07/23/24 04:15 MCHC 34.3 g/dL (33.0-35.0) 07/23/24 04:15 RDW 20.6 % (11.6-16.5) H 07/23/24 04:15 Plt Count 84 X10^3/uL (150.0-450.0) L 07/23/24 04:15 Plt Count Comment Decreased (ADEQUATE) 07/23/24 04:15 MPV 10.7 fL (7.4-11.0) 07/23/24 04:15 Neut % (Auto) 42.7 % (42.0-75.0) 07/23/24 04:15 Lymph % (Auto) 41.7 % (21.0-51.0) 07/23/24 04:15 [place] % (Auto) 14.4 % (0.0-13.0) H 07/23/24 04:15 Eos % (Auto) 0.7 % (0.9-2.9) L 07/23/24 04:15 Baso % (Auto) 0.5 % (0.2-1.0) 07/23/24 04:15 Neut # (Auto) 1.6 x10^3/uL (2.2-4.8) L 07/23/24 04:15 Lymph # (Auto) 1.6 X10^3/uL (1.3-2.9) 07/23/24 04:15 [place] # (Auto) 0.5 x10^3/uL (0.3-0.8) 07/23/24 04:15 Eos # (Auto) 0.0 x10^3/uL (0.0-0.2) 07/23/24 04:15 Baso # (Auto) 0.0 X10^3/uL (0.0-0.1) 07/23/24 04:15 Absolute Nucleated RBC 0.1 /100WBC 07/23/24 04:15 Plt Morphology Comment Normal (NORMAL) 07/23/24 04:15 RBC Morphology Abnormal (NORMAL) 07/23/24 04:15 Anisocytosis 1+ A 07/23/24 04:15 Target Cells Slight A 07/23/24 04:15 Stomatocytes Slight A 07/23/24 04:15 PT 13.7 SECONDS (11.8-14.3) 07/22/24 17:39 INR Target Range - 07/22/24 17:39 INR 1.07 (0.8-1.3) 07/22/24 17:39 APTT 24.9 SECONDS (22.9-36.5) 07/22/24 17:39 PTT Comment - 07/22/24 17:39 Sodium 138 mmol/L (136-145) 07/23/24 04:15 Corrected Sodium TNP 07/23/24 04:15 Potassium 3.7 mmol/L (3.5-5.1) 07/23/24 04:15 Chloride 103 mmol/L (98-107) 07/23/24 04:15 Carbon Dioxide 23.0 mmol/L (21-32) 07/23/24 04:15 BUN 26 mg/dL (7-18) H 07/23/24 04:15 Creatinine 2.49 mg/dL (0.70-1.30) H 07/23/24 04:15 Est GFR (MDRD) Af Amer 34 (>60) L 07/23/24 04:15 Est GFR (MDRD) Non-Af 28 (>60) L 07/23/24 04:15 Glucose 87 mg/dL (65-99) 07/23/24 04:15 Calcium 8.3 mg/dL (8.5-10.1) L 07/23/24 04:15 Corrected Calcium 9.2 mg/dL (8.5-10.1) 07/23/24 04:15 Magnesium 0.9 mg/dL (2.0-2.9) L 07/23/24 04:15 Total Bilirubin 0.80 mg/dL (0.2-1.0) 07/23/24 04:15 AST 90 Units/L (15-37) H 07/23/24 04:15 ALT 40 Units/L (12-78) 07/23/24 04:15 Alkaline Phosphatase 97 Units/L (46-116) 07/23/24 04:15 Creatine Kinase 54 Units/L (39-308) 07/22/24 17:39 Troponin I High Sens 8.5 ng/L (4.0-60.0) 07/22/24 17:39 B-Natriuretic Peptide 12.2 pg/mL (0-79) 07/22/24 17:39 Total Protein 7.4 g/dL (6.4-8.2) 07/23/24 04:15 Albumin 2.9 g/dL (3.4-5.0) L 07/23/24 04:15 Globulin 4.5 g/dL (2.5-4.5) 07/23/24 04:15 Albumin/Globulin Ratio 0.6 Ratio (1.1-2.1) L 07/23/24 04:15 Specimen Type Clean catch urine 07/22/24 20:02 Urine Color Anjelica (YELLOW) 07/22/24 20:02 Urine Appearance Slightly hazy (CLEAR) 07/22/24 20:02 Urine pH 5.0 (5.0 - 8.0) 07/22/24 20:02 Ur Specific [place] 1.020 (1.000-1.030) 07/22/24 20:02 Urine Protein 2+ (NEGATIVE) 07/22/24 20:02 Urine Glucose (UA) Negative (NEGATIVE) 07/22/24 20:02 Urine Ketones 2+ (NEGATIVE) 07/22/24 20:02 Urine Blood 1+ (NEGATIVE) 07/22/24 20:02 Urine Nitrite Negative (NEGATIVE) 07/22/24 20:02 Urine Bilirubin 1+ (NEGATIVE) 07/22/24 20:02 Urine Urobilinogen 1+ (NORMAL) 07/22/24 20:02 Ur Leukocyte Esterase 2+ (NEGATIVE) 07/22/24 20:02 Urine RBC 3-5 /HPF (0-3) A 07/22/24 20:02 Urine WBC 10-20 /HPF (0-5) A 07/22/24 20:02 Ur Squamous Epith Cells Few /HPF (NEGATIVE) 07/22/24 20:02 Amorphous Sediment 1+ /HPF (NEGATIVE) 07/22/24 20:02 Urine Bacteria 1+ /HPF (NEGATIVE) 07/22/24 20:02 Hyaline Casts Moderate /LPF (NEGATIVE) 07/22/24 20:02 Ur Culture Indicated? Yes/culture set up 07/22/24 20:02 Ethyl Alcohol mg/dL 23 mg/dL (0-19.9) H 07/22/24 17:39 Assessment/Plan (1) MALACHI (acute kidney injury): (2) Acute dehydration: (3) Hypertension: (4) Alcoholism: (5) HIV positive: Hospital Course Hospital Course: Patient was admitted for IV hydration. He responded very well to fluids. He responded very well in the ER to aggressive hydration with improvement of his creatinine. He has gone from 3.72-3.18 now at 2.49. Vitals have remained stable overnight. Patient is tolerating oral fluids and solids. He is stable for discharge home. Did offer help with alcohol cessation but patient declined. Discharge Medications Discharge Medications: Home Medication List omeprazole 20 mg capsule,delayed release 20 mg PO QDAY 07/22/24 [History] potassium chloride 20 mEq tablet,extended release(part/cryst) 20 meq PO QDAY 07/22/24 [History] Prescriptions: Discharge Plan Discharge Plan Patient Disposition: HOME, SELF-CARE Condition: Stable Health Concerns: Post Hospitalization: new medications and changes needed to prevent readmission or further decline. Pt educated and given instructions on all concerns. Care Plan Goals: Problem: Pain/Alteration in Comfort Goal: Improve/ Resolve Pain; Achieve Pain Tolerance Instructions: Take pain medications as prescribed. Contact your primary care provider if your pain is unrelieved or worsens. Follow up with primary care provider as directed. Plan of Treatment: Continue with present treatment and follow up plan. Pt is to keep follow up appointment as instructed and take medications as ordered. Prescription drug monitoring program results: PDMP reviewed and no concerns identified Prescriptions: No Action gabapentin 600 mg tablet 600 mg PO TID Qty: 270 3RF Genvoya [phone] mg tablet 150 tab PO QDAY thiamine mononitrate (vit B1) [Vitamin B-1 (mononitrate)] 100 mg tablet 100 mg PO QDAY Genvoya [phone] mg tablet 1 tab PO QDAY fluoxetine 40 mg capsule 80 mg PO QAM folic acid 400 mcg tablet 0.4 mg PO QDAY pantoprazole [Protonix] 40 mg Tablet,Delayed Release (Dr/Ec) 40 mg PO QDAY Qty: 30 0RF losartan [Cozaar] 100 mg Tablet 100 mg PO QDAY Qty: 10 0RF alum-mag hydroxide-simeth [Maalox Maximum Strength] 400-400-40 mg/5 mL Suspen domi 10 ml PO TID PRNQty: 120 0RF magnesium oxide 400 mg magnesium Capsule 400 mg PO BID Qty: 30 0RF vilazodone 10 mg Tablet 10 mg PO QDAY Qty: 30 0RF Rx Instructions: must administer with a meal/food potassium chloride 20 mEq tablet,ER particles/crystals 20 meq PO QDAY omeprazole 20 mg capsule,delayed release(DR/EC) 20 mg PO QDAY Orders to Discharge Patient Discharge Orders: Discharge (Routine); Ordered 07/23/24 Ordered By: Jerod Grajeda Instructions Instructions: Alcohol Misuse and Dependence Information, Adult, Dehydration, Adult, [id number] Stand Alone Forms: Excuse From Work or School, Find Help Web Site, Post Hospital Follow Up Care
[2024-07-23] MEDS: [UNRECOGNIZED DRUG - OTHER] IV ONE (10:21)
[2024-07-23] MEDS: NS IV ONE (10:21)
[2024-07-23] MEDS: POTASSIUM CHLORIDE IV ONE (10:21)
[2024-07-23 13:16] VITALS: TEMP 98.3; O2SAT 100
[2024-07-23 16:36] VITALS: BP 177/92; PULSE 70; RESP 17
== END 2024-07-23 17:56 | disposition home or self-care (01) ==
LOC: SUPCPDRO → ER 16:41 → ICU 16:41
PROVIDERS: ADMIT Family Medicine; ATTEND Family Medicine
DX: Y90.1 Blood alcohol level of 20-39 mg/100 ml; R53.1 Weakness; F41.8 Other specified anxiety disorders; I12.9 Hypertensive chronic kidney disease with stage 1 through stage 4 chronic kidney disease, or unspecified chronic kidney disease; N18.9 Chronic kidney disease, unspecified; F10.229 Alcohol dependence with intoxication, unspecified; E78.5 Hyperlipidemia, unspecified; F32.89 Other specified depressive episodes; R94.31 Abnormal electrocardiogram [ECG] [EKG]; Z21 Asymptomatic human immunodeficiency virus [HIV] infection status; R06.02 Shortness of breath; E86.0 Dehydration; D64.89 Other specified anemias; N17.8 Other acute kidney failure; K21.9 Gastro-esophageal reflux disease without esophagitis; E83.42 Hypomagnesemia

== ENCOUNTER 2025-01-11 14:19 | Inpatient (IN) ==
[2025-01-11 15:07] VITALS: BMI 251.1
--- NOTE | 2025-01-11 15:31 | DR.AINTOX ---
HPI Time Seen Time Seen by Provider: 01/11/25 15:27 PCP Primary Care Physician: marisa spicer and pain management Complaint Doctors Chief Complaint Comments: 64-year-old male to ED from home POV history of alcoholism Daily alcohol use has not had alcohol since yesterday. States came to the ER because he feels bad complains of nausea vomiting diarrhea swollen legs with other multiple complaints. Chief Complaint:: i just dont feel good. has not had any alcohol today last ingestion was yesterday. states that feet and legs are swollen and wants to get the swelling out. complains of n/v and an episode of diarrhea. smells of etoh and acetone COVID-19 Coronavirus risk:travel/contact w/high risk person: No Has patient experienced Coronavirus symptoms: No Source History Provided: Patient and Family Member Mode of Arrival Mode of Arrival: Wheelchair Timing Onset of Chief Complaint: 01/10/25 Associated Signs and Symptoms Associated Signs and Symptoms: Nausea, Vomiting, Weakness and Other PMH PMH Past Medical History: Yes Past Medical History: Anxiety, Depression, Dyslipidemia, GERD and Hypertension Past Surgical History: Yes Surgical History: Ortho Surgery Family History History of Family Medical Conditions: Yes Family Medical History: Hypertension Social History Type of Tobacco Use: None Alcohol Use: Heavy Do you use any recreational Drugs:: No Lives With: Spouse Lives Where: Home Travel Risk Coronavirus risk:travel/contact w/high risk person: No Has patient experienced Coronavirus symptoms: No Infectious screening In the last 2 months have you had wt loss of >10#?: NO Have you had fever, night sweats or hemotysis?: No Have you traveled outside the country in the last 6 months?: No Isolation: Standard ROS Review of Systems Constitutional: Weakness Eyes: No Symptoms Reported ENTM: No Symptoms Reported Respiratoy: No Symptoms Reported Cardiovascular: No Symptoms Reported Gastrointestinal/Abdominal: No Symptoms Reported Genitourinary: No Symptoms Reported Neurological: No Symptoms Reported Musculoskeletal: Muscle Pain Integumentary: No Symptoms Reported Hematologic/Lymphatic: No Symptoms Reported Endocrine: No Symptoms Reported Psychiatric: No Symptoms Reported All Other Systems: Reviewed and Negative PE Vitals Vital Signs: Temp Pulse Resp BP Pulse Ox O2 Del Method 01/11/25 15:45 95 H 25 H 100 01/11/25 15:30 203/93 01/11/25 15:30 102 H 22 100 01/11/25 15:15 101 H 21 99 01/11/25 15:01 101 H 22 99 01/11/25 15:00 197/91 01/11/25 14:55 98.2 F 104 H 20 203/93 100 Room Air General Limitations: No Limitations General Appearance: Alert and In No Apparent Distress Head Head Exam: Normal Inspection Eyes Eye exam: Normal Appearance ENT ENT Exam: Normal Exam Neck Neck Exam: Normal Inspection Chest Chest Inspection: Normal Inspection Respiratory Respiratory Exam: Normal Lung Sounds Bilat Cardiovascular Cardiovascular Exam: Regular Rate and Normal Rhythm Abdominal Exam Abdominal Exam: Normal Inspection and Normal Bowel Sounds Extremities Extremities Exam: Full ROM and Tenderness Back Back Exam: Normal Inspection Neurologic Neurological Exam: Alert and Oriented X3 Speech: Fluid Speech Psychiatric Psychiatric Exam: Normal Affect and Normal Mood Skin Skin Exam: Warm, Dry, Intact and Normal Color ROR Labs Reviewed 01/11/25 15:38 01/11/25 15:38 Laboratory: WBC 9.5 X10^3/uL (3.6-10.0) 01/11/25 15:38 RBC 4.06 X10^6/uL (4.7-6.0) L 01/11/25 15:38 Hgb 11.0 g/dL (13.5-18.0) L 01/11/25 15:38 Hct 34.4 % (42.0-54.0) L 01/11/25 15:38 MCV 84.7 fL (80.0-100.0) 01/11/25 15:38 MCH 27.0 pg (27.0-34.0) 01/11/25 15:38 MCHC 31.9 g/dL (33.0-35.0) L 01/11/25 15:38 RDW 13.5 % (11.6-16.5) 01/11/25 15:38 Plt Count 128 X10^3/uL (150.0-450.0) L 01/11/25 15:38 MPV 9.4 fL (7.4-11.0) 01/11/25 15:38 Neut % (Auto) 82.7 % (42.0-75.0) H 01/11/25 15:38 Lymph % (Auto) 9.0 % (21.0-51.0) L 01/11/25 15:38 [place] % (Auto) 8.2 % (0.0-13.0) 01/11/25 15:38 Eos % (Auto) 0.0 % (0.9-2.9) L 01/11/25 15:38 Baso % (Auto) 0.1 % (0.2-1.0) L 01/11/25 15:38 Neut # (Auto) 7.9 x10^3/uL (2.2-4.8) H 01/11/25 15:38 Lymph # (Auto) 0.9 X10^3/uL (1.3-2.9) L 01/11/25 15:38 [place] # (Auto) 0.8 x10^3/uL (0.3-0.8) 01/11/25 15:38 Eos # (Auto) 0.0 x10^3/uL (0.0-0.2) 01/11/25 15:38 Baso # (Auto) 0.0 X10^3/uL (0.0-0.1) 01/11/25 15:38 Absolute Nucleated RBC 0.0 /100WBC 01/11/25 15:38 Sodium 139 mmol/L (136-145) 01/11/25 15:38 Corrected Sodium 142 mmol/L (136-145) 01/11/25 15:38 Potassium 4.5 mmol/L (3.5-5.1) 01/11/25 15:38 Chloride 97 mmol/L (98-107) L 01/11/25 15:38 Carbon Dioxide 14.4 mmol/L (21-32) L* 01/11/25 15:38 BUN 25 mg/dL (7-18) H 01/11/25 15:38 Creatinine 1.91 mg/dL (0.70-1.30) H 01/11/25 15:38 Est GFR (MDRD) Af Amer 46 (>60) L 01/11/25 15:38 Est GFR (MDRD) Non-Af 38 (>60) L 01/11/25 15:38 Glucose 205 mg/dL (65-99) H 01/11/25 15:38 POC Glucose (mg/dL) 202 mg/dL (65-99) H 01/11/25 15:38 Lactic Acid 3.5 mmol/L (0.4-2.0) H 01/11/25 15:38 Calcium 7.6 mg/dL (8.5-10.1) L 01/11/25 15:38 Corrected Calcium TNP 01/11/25 15:38 Total Bilirubin 0.70 mg/dL (0.2-1.0) 01/11/25 15:38 AST 63 Units/L (15-37) H 01/11/25 15:38 ALT 24 Units/L (12-78) 01/11/25 15:38 Alkaline Phosphatase 89 Units/L (46-116) 01/11/25 15:38 Troponin I High Sens 11.1 ng/L (4.0-60.0) 01/11/25 15:38 B-Natriuretic Peptide 44.4 pg/mL (0-79) 01/11/25 15:38 Total Protein 8.8 g/dL (6.4-8.2) H 01/11/25 15:38 Albumin 4.0 g/dL (3.4-5.0) 01/11/25 15:38 Globulin 4.8 g/dL (2.5-4.5) H 01/11/25 15:38 Albumin/Globulin Ratio 0.8 Ratio (1.1-2.1) L 01/11/25 15:38 Specimen Type Clean catch urine 01/11/25 15:34 Urine Color Straw (YELLOW) 01/11/25 15:34 Urine Appearance Clear (CLEAR) 01/11/25 15:34 Urine pH 5.0 (5.0 - 8.0) 01/11/25 15:34 Ur Specific [place] 1.020 (1.000-1.030) 01/11/25 15:34 Urine Protein 2+ (NEGATIVE) 01/11/25 15:34 Urine Glucose (UA) Negative (NEGATIVE) 01/11/25 15:34 Urine Ketones 4+ (NEGATIVE) 01/11/25 15:34 Urine Blood Negative (NEGATIVE) 01/11/25 15:34 Urine Nitrite Negative (NEGATIVE) 01/11/25 15:34 Urine Bilirubin Negative (NEGATIVE) 01/11/25 15:34 Urine Urobilinogen Normal (NORMAL) 01/11/25 15:34 Ur Leukocyte Esterase Negative (NEGATIVE) 01/11/25 15:34 Urine RBC None seen /HPF (0-3) 01/11/25 15:34 Urine WBC 0-2 /HPF (0-5) 01/11/25 15:34 Ur Squamous Epith Cells Rare /HPF (NEGATIVE) 01/11/25 15:34 Urine Bacteria Negative /HPF (NEGATIVE) 01/11/25 15:34 Ur Culture Indicated? No/not indicated 01/11/25 15:34 Urine Opiates Screen Negative (NEG=<300) 01/11/25 15:34 Urine Methadone Screen Negative (NEG=<300) 01/11/25 15:34 Ur Barbiturates Screen Negative (NEG=<200) 01/11/25 15:34 Ur Phencyclidine Scrn Negative (NEG=<25) 01/11/25 15:34 Ur Amphetamines Screen Negative (NEG=<1000) 01/11/25 15:34 U Benzodiazepines Scrn Negative (NEG=<200) 01/11/25 15:34 Urine Cocaine Screen Negative (NEG=<300) 01/11/25 15:34 U Marijuana (THC) Screen Negative (NEG=<50) 01/11/25 15:34 Ethyl Alcohol mg/dL < 3.0 mg/dL (0-19.9) 01/11/25 15:38 Acetone, Semi-Quant Moderate (NEGATIVE) H 01/11/25 15:38 Opioid Opioid Risk Tool Family Hx of Substance Abuse: Alcohol Personal Hx of Substance Abuse: Alcohol Age (Harshad box if 16-45): No History of Preadolescent Sexual Abuse: No Psychological Disease: Depression Total: 0 Total Score Risk Category: Low Risk Copyright: Danilo TORRES predicting aberrant behaviors Discharge Plan Diagnosis Discharge Problem: Acute kidney insufficiency, Weakness Discharge Plan Patient Disposition: ADMITTED INPATIENT Condition: Stable Prescriptions: No Action gabapentin 600 mg tablet 600 mg PO TID Qty: 270 3RF Genvoya [phone] mg tablet 150 tab PO QDAY thiamine mononitrate (vit B1) [Vitamin B-1 (mononitrate)] 100 mg tablet 100 mg PO QDAY Genvoya [id number] mg tablet 1 tab PO QDAY fluoxetine 40 mg capsule 80 mg PO QAM folic acid 400 mcg tablet 0.4 mg PO QDAY pantoprazole [Protonix] 40 mg Tablet,Delayed Release (Dr/Ec) 40 mg PO QDAY Qty: 30 0RF losartan [Cozaar] 100 mg Tablet 100 mg PO QDAY Qty: 10 0RF alum-mag hydroxide-simeth [Maalox Maximum Strength] 400-400-40 mg/5 mL Suspension 10 ml PO TID PRNQty: 120 0RF magnesium oxide 400 mg magnesium Capsule 400 mg PO BID Qty: 30 0RF vilazodone 10 mg Tablet 10 mg PO QDAY Qty: 30 0RF Rx Instructions: must administer with a meal/food potassium chloride 20 mEq tablet,ER particles/crystals 20 meq PO QDAY omeprazole 20 mg capsule,delayed release(DR/EC) 20 mg PO QDAY magnesium oxide 400 mg magnesium tablet 400 mg PO BID Qty: 7 0RF Health Concerns: Post Hospitalization: new medications and changes needed to prevent readmission or further decline. Pt educated and given instructions on all concerns. Plan of Treatment: Continue with present treatment and follow up plan. Pt is to keep follow up appointment as instructed and take medications as ordered. Follow ups/Referrals Follow ups/Referrals: [facility],None [Primary Care Provider] - 3 days Instructions Print Language: [place]
[2025-01-11 15:59] LABS: BLOOD/HEMOGLOBIN,URINE NEGATIVE (NEGATIVE); LEUKOCYTE ESTERASE ,URINE NEGATIVE (NEGATIVE); NITRITES,URINE NEGATIVE (NEGATIVE)
[2025-01-11 15:59] LABS: MEAN PLATELET VOLUME 9.4 fL (7.4-11.0); RED CELL DISTRIBUTION WIDTH 13.5 % (11.6-16.5)
[2025-01-11 16:06] LABS: APPEARANCE,URINE CLEAR (CLEAR); SQUAMOUS EPITHELIAL CELL,UR RARE /HPF (NEGATIVE)
[2025-01-11 16:15] LABS: COR NA(FOR HYPERGLY) 142 mmol/L (136-145); CREATININE 1.91 mg/dL (0.70-1.30); SERUM ACETONE MODERATE (NEGATIVE); eGFR NON BLACK RACES 38 (>60)
[2025-01-11 16:18] LABS: BLOOD ALCOHOL < 3.0 mg/dL (0-19.9)
[2025-01-11] MEDS: NS 1,000 ML IV 1,000 ML IV ONE (16:36)
[2025-01-11] MEDS: NS 1,000 ML IV 1,000 ML with MAGNESIUM SULFATE 50% INJ VIAL 1 G, MVI INJ (ADULT) 10 ML IV SCH (16:40)
--- NOTE | 2025-01-11 16:44 | DR.AINTOX ---
HPI Time Seen Time Seen by Provider: 01/11/25 15:27 PCP Primary Care Physician: marisa spicer and pain management Complaint Chief Complaint:: i just dont feel good. has not had any alcohol today last ingestion was yesterday. states that feet and legs are swollen and wants to get the swelling out. complains of n/v and an episode of diarrhea. smells of etoh and acetone COVID-19 Coronavirus risk:travel/contact w/high risk person: No Has patient experienced Coronavirus symptoms: No Source History Provided: Patient and Family Member Mode of Arrival Mode of Arrival: Wheelchair Timing Onset of Chief Complaint: 01/10/25 Associated Signs and Symptoms Associated Signs and Symptoms: Nausea, Vomiting, Weakness and Other PMH PMH Past Medical History: Yes Past Medical History: Anxiety, Depression, Dyslipidemia, GERD and Hypertension Past Surgical History: Yes Surgical History: Ortho Surgery Family History History of Family Medical Conditions: Yes Family Medical History: Hypertension Social History Type of Tobacco Use: None Alcohol Use: Heavy Do you use any recreational Drugs:: No Lives With: Spouse Lives Where: Home Travel Risk Coronavirus risk:travel/contact w/high risk person: No Has patient experienced Coronavirus symptoms: No Infectious screening In the last 2 months have you had wt loss of >10#?: NO Have you had fever, night sweats or hemotysis?: No Have you traveled outside the country in the last 6 months?: No Isolation: Standard PE Vitals Vital Signs: Temp Pulse Resp BP Pulse Ox O2 Del Method 01/11/25 15:45 95 H 25 H 100 01/11/25 15:30 203/93 01/11/25 15:30 102 H 22 100 01/11/25 15:15 101 H 21 99 01/11/25 15:01 101 H 22 99 01/11/25 15:00 197/91 01/11/25 14:55 98.2 F 104 H 20 203/93 100 Room Air ROR Labs Reviewed 01/11/25 15:38 01/11/25 15:38 Laboratory: WBC 9.5 X10^3/uL (3.6-10.0) 01/11/25 15:38 RBC 4.06 X10^6/uL (4.7-6.0) L 01/11/25 15:38 Hgb 11.0 g/dL (13.5-18.0) L 01/11/25 15:38 Hct 34.4 % (42.0-54.0) L 01/11/25 15:38 MCV 84.7 fL (80.0-100.0) 01/11/25 15:38 MCH 27.0 pg (27.0-34.0) 01/11/25 15:38 MCHC 31.9 g/dL (33.0-35.0) L 01/11/25 15:38 RDW 13.5 % (11.6-16.5) 01/11/25 15:38 Plt Count 128 X10^3/uL (150.0-450.0) L 01/11/25 15:38 MPV 9.4 fL (7.4-11.0) 01/11/25 15:38 Neut % (Auto) 82.7 % (42.0-75.0) H 01/11/25 15:38 Lymph % (Auto) 9.0 % (21.0-51.0) L 01/11/25 15:38 [place] % (Auto) 8.2 % (0.0-13.0) 01/11/25 15:38 Eos % (Auto) 0.0 % (0.9-2.9) L 01/11/25 15:38 Baso % (Auto) 0.1 % (0.2-1.0) L 01/11/25 15:38 Neut # (Auto) 7.9 x10^3/uL (2.2-4.8) H 01/11/25 15:38 Lymph # (Auto) 0.9 X10^3/uL (1.3-2.9) L 01/11/25 15:38 [place] # (Auto) 0.8 x10^3/uL (0.3-0.8) 01/11/25 15:38 Eos # (Auto) 0.0 x10^3/uL (0.0-0.2) 01/11/25 15:38 Baso # (Auto) 0.0 X10^3/uL (0.0-0.1) 01/11/25 15:38 Absolute Nucleated RBC 0.0 /100WBC 01/11/25 15:38 Sodium 139 mmol/L (136-145) 01/11/25 15:38 Corrected Sodium 142 mmol/L (136-145) 01/11/25 15:38 Potassium 4.5 mmol/L (3.5-5.1) 01/11/25 15:38 Chloride 97 mmol/L (98-107) L 01/11/25 15:38 Carbon Dioxide 14.4 mmol/L (21-32) L* 01/11/25 15:38 BUN 25 mg/dL (7-18) H 01/11/25 15:38 Creatinine 1.91 mg/dL (0.70-1.30) H 01/11/25 15:38 Est GFR (MDRD) Af Amer 46 (>60) L 01/11/25 15:38 Est GFR (MDRD) Non-Af 38 (>60) L 01/11/25 15:38 Glucose 205 mg/dL (65-99) H 01/11/25 15:38 POC Glucose (mg/dL) 202 mg/dL (65-99) H 01/11/25 15:38 Lactic Acid 3.5 mmol/L (0.4-2.0) H 01/11/25 15:38 Calcium 7.6 mg/dL (8.5-10.1) L 01/11/25 15:38 Corrected Calcium TNP 01/11/25 15:38 Total Bilirubin 0.70 mg/dL (0.2-1.0) 01/11/25 15:38 AST 63 Units/L (15-37) H 01/11/25 15:38 ALT 24 Units/L (12-78) 01/11/25 15:38 Alkaline Phosphatase 89 Units/L (46-116) 01/11/25 15:38 Troponin I High Sens 11.1 ng/L (4.0-60.0) 01/11/25 15:38 B-Natriuretic Peptide 44.4 pg/mL (0-79) 01/11/25 15:38 Total Protein 8.8 g/dL (6.4-8.2) H 01/11/25 15:38 Albumin 4.0 g/dL (3.4-5.0) 01/11/25 15:38 Globulin 4.8 g/dL (2.5-4.5) H 01/11/25 15:38 Albumin/Globulin Ratio 0.8 Ratio (1.1-2.1) L 01/11/25 15:38 Specimen Type Clean catch urine 01/11/25 15:34 Urine Color Straw (YELLOW) 01/11/25 15:34 Urine Appearance Clear (CLEAR) 01/11/25 15:34 Urine pH 5.0 (5.0 - 8.0) 01/11/25 15:34 Ur Specific [place] 1.020 (1.000-1.030) 01/11/25 15:34 Urine Protein 2+ (NEGATIVE) 01/11/25 15:34 Urine Glucose (UA) Negative (NEGATIVE) 01/11/25 15:34 Urine Ketones 4+ (NEGATIVE) 01/11/25 15:34 Urine Blood Negative (NEGATIVE) 01/11/25 15:34 Urine Nitrite Negative (NEGATIVE) 01/11/25 15:34 Urine Bilirubin Negative (NEGATIVE) 01/11/25 15:34 Urine Urobilinogen Normal (NORMAL) 01/11/25 15:34 Ur Leukocyte Esterase Negative (NEGATIVE) 01/11/25 15:34 Urine RBC None seen /HPF (0-3) 01/11/25 15:34 Urine WBC 0-2 /HPF (0-5) 01/11/25 15:34 Ur Squamous Epith Cells Rare /HPF (NEGATIVE) 01/11/25 15:34 Urine Bacteria Negative /HPF (NEGATIVE) 01/11/25 15:34 Ur Culture Indicated? No/not indicated 01/11/25 15:34 Urine Opiates Screen Negative (NEG=<300) 01/11/25 15:34 Urine Methadone Screen Negative (NEG=<300) 01/11/25 15:34 Ur Barbiturates Screen Negative (NEG=<200) 01/11/25 15:34 Ur Phencyclidine Scrn Negative (NEG=<25) 01/11/25 15:34 Ur Amphetamines Screen Negative (NEG=<1000) 01/11/25 15:34 U Benzodiazepines Scrn Negative (NEG=<200) 01/11/25 15:34 Urine Cocaine Screen Negative (NEG=<300) 01/11/25 15:34 U Marijuana (THC) Screen Negative (NEG=<50) 01/11/25 15:34 Ethyl Alcohol mg/dL < 3.0 mg/dL (0-19.9) 01/11/25 15:38 Acetone, Semi-Quant Moderate (NEGATIVE) H 01/11/25 15:38 Opioid Opioid Risk Tool Family Hx of Substance Abuse: Alcohol Personal Hx of Substance Abuse: Alcohol Age (Harshad box if 16-45): No History of Preadolescent Sexual Abuse: No Psychological Disease: Depression Total: 0 Total Score Risk Category: Low Risk Copyright: Danilo TORRES predicting aberrant behaviors Discharge Plan Diagnosis Discharge Problem: Acute kidney insufficiency, Weakness Discharge Plan Patient Disposition: ADMITTED INPATIENT Condition: Stable Prescriptions: No Action gabapentin 600 mg tablet 600 mg PO TID Qty: 270 3RF [place] [id number] mg tablet 150 tab PO QDAY thiamine mononitrate (vit B1) [Vitamin B-1 (mononitrate)] 100 mg tablet 100 mg PO QDAY Genvoya [phone] mg tablet 1 tab PO QDAY fluoxetine 40 mg capsule 80 mg PO QAM folic acid 400 mcg tablet 0.4 mg PO QDAY pantoprazole [Protonix] 40 mg Tablet,Delayed Release (Dr/Ec) 40 mg PO QDAY Qty: 30 0RF losartan [Cozaar] 100 mg Tablet 100 mg PO QDAY Qty: 10 0RF alum-mag hydroxide-simeth [Maalox Maximum Strength] 400-400-40 mg/5 mL Suspension 10 ml PO TID PRNQty: 120 0RF magnesium oxide 400 mg magnesium Capsule 400 mg PO BID Qty: 30 0RF vilazodone 10 mg Tablet 10 mg PO QDAY Qty: 30 0RF Rx Instructions: must administer with a meal/food potassium chloride 20 mEq tablet,ER particles/crystals 20 meq PO QDAY omeprazole 20 mg capsule,delayed release(DR/EC) 20 mg PO QDAY magnesium oxide 400 mg magnesium tablet 400 mg PO BID Qty: 7 0RF Health Concerns: Post Hospitalization: new medications and changes needed to prevent readmission or further decline. Pt educated and given instructions on all concerns. Plan of Treatment: Continue with present treatment and follow up plan. Pt is to keep follow up appointment as instructed and take medications as ordered. Orders to Discharge Patient Discharge Orders: Transfer (Routine); Ordered 01/11/25 Ordered By: Gregory Medley Follow ups/Referrals Follow ups/Referrals: N[facility],None [Primary Care Provider] - 3 days Instructions Print Language: ECUADOREAN
[2025-01-11] MEDS ORDERED: TYLENOL 325 MG TAB PO PRN (18:02)
[2025-01-11] MEDS: MVI INJ (ADULT) IV ONE (18:18)
[2025-01-11] MEDS: MAG-OX TAB PO SCH (20:35)
[2025-01-11] MEDS: CATAPRES TAB 0.1 MG PO ONE (21:46)
[2025-01-12 05:11] LABS: MEAN PLATELET VOLUME 9.5 fL (7.4-11.0); RED CELL DISTRIBUTION WIDTH 13.2 % (11.6-16.5)
[2025-01-12 05:23] LABS: COR NA(FOR HYPERGLY) 143 mmol/L (136-145); CREATININE 1.51 mg/dL (0.70-1.30); eGFR NON BLACK RACES 50 (>60)
[2025-01-12] MEDS ORDERED: CONSULT PHARMACY - POTASSIUM & MAGNESIUM XX SCH (07:00)
[2025-01-12] MEDS: COZAAR PO SCH (08:34)
[2025-01-12] MEDS: TAB-A-VITE PO SCH (08:35)
[2025-01-12] MEDS: MAG-OX TAB PO SCH (08:35)
[2025-01-12] MEDS: FOLIC ACID TAB 1 MG PO SCH (08:35)
[2025-01-12] MEDS: KLOR-CON 10 MEQ TAB PO ONE (08:36)
[2025-01-12] MEDS: PROTONIX TAB 40 MG PO SCH (08:36)
[2025-01-12] MEDS ORDERED: LOSARTAN 100 MG PO SCH (09:00)
[2025-01-12] MEDS ORDERED: VITAMIN B-1 PO SCH (09:00)
[2025-01-12] MEDS ORDERED: FLUOXETINE 40 MG PO SCH (09:00)
[2025-01-12] MEDS: NS + KCL 20 MEQ/L 1,000 ML with MAGNESIUM SULFATE 50% INJ VIAL 1 G IV SCH (12:15)
--- NOTE | 2025-01-12 12:32 | DR.H&P ---
H&P History & Physical for Day of: H&P Date: 01/12/25 Chief Complaint Chief Complaint: N/V History of Present Illness History of Present Illness: Patient is a 64-year-old male with a past medical history of hypertension, chronic pain syndrome, depression, anxiety and chronic alcohol use presented with generalized weakness, nausea and vomiting. Patient's last drink was 2 days ago. ER workup included labs which showed elevated BUN/creatinine and elevated lactic acid. He was started on banana bag and hydration. He reports feeling better this morning. He denies nausea, vomiting or diarrhea. He denies having any seizures related to alcohol withdrawal or ever been intubated. Labs/imaging reviewed: - WBC 5.4 hemoglobin 9.7 platelet 101 potassium 3.4 magnesium 1.6 creatinine 1.51 - Lactic acid 3.8, 1.2 - UA negative urine drug screen negative - Blood cultures pending Plan: Continue to monitor. Continue hydration. Continue multivitamin and thiamine. Replace electrolytes. Follow pending cultures. Monitor for any signs of alcohol withdrawal. [facility] protocol as needed. Check anemia panel. Resume home medications as appropriate. Monitor a.m. labs and imaging. Time spent for clinical assessment, reviewing labs and imaging, physical exam, decision making and documentation greater than 45 minutes. Past Medical History Past Medical History: Anxiety, Depression, Dyslipidemia, GERD and Hypertension Additional Medical History: HIV positive, chronic low back pain and anxiety, alcohol use disorder Past Surgical History Surgical History: Ortho Surgery Family History Family Medical History: Hypertension Social History Does patient currently use any type of tobacco product: No Type of Tobacco Use: None Does any household member use tobacco: No Alcohol Use: DAILY Drug Use: None Medications Home Medications: Home Medications Medication Instructions Recorded Confirmed Type tizanidine 4 mg tablet 4 mg PO QPM PRN 01/11/25 History buprenorphine 4 mg-naloxone 1 mg 1 film buccal TID 01/12/25 History sublingual film Allergies Allergies Allergy/AdvReac Type Severity Reaction Status Date / Time No Known Drug Allergies Allergy Unknown Verified 01/11/25 14:54 Labs 01/12/25 04:33 01/12/25 04:33 Labs: Laboratory WBC 5.4 X10^3/uL (3.6-10.0) 01/12/25 04:33 RBC 3.58 X10^6/uL (4.7-6.0) L 01/12/25 04:33 Hgb 9.7 g/dL (13.5-18.0) L 01/12/25 04:33 Hct 29.0 % (42.0-54.0) L 01/12/25 04:33 MCV 80.9 fL (80.0-100.0) 01/12/25 04:33 MCH 27.0 pg (27.0-34.0) 01/12/25 04:33 MCHC 33.3 g/dL (33.0-35.0) 01/12/25 04:33 RDW 13.2 % (11.6-16.5) 01/12/25 04:33 Plt Count 101 X10^3/uL (150.0-450.0) L 01/12/25 04:33 MPV 9.5 fL (7.4-11.0) 01/12/25 04:33 Neut % (Auto) 66.2 % (42.0-75.0) 01/12/25 04:33 Lymph % (Auto) 24.3 % (21.0-51.0) 01/12/25 04:33 [place] % (Auto) 9.2 % (0.0-13.0) 01/12/25 04:33 Eos % (Auto) 0.0 % (0.9-2.9) L 01/12/25 04:33 Baso % (Auto) 0.3 % (0.2-1.0) 01/12/25 04:33 Neut # (Auto) 3.6 x10^3/uL (2.2-4.8) 01/12/25 04:33 Lymph # (Auto) 1.3 X10^3/uL (1.3-2.9) 01/12/25 04:33 [place] # (Auto) 0.5 x10^3/uL (0.3-0.8) 01/12/25 04:33 Eos # (Auto) 0.0 x10^3/uL (0.0-0.2) 01/12/25 04:33 Baso # (Auto) 0.0 X10^3/uL (0.0-0.1) 01/12/25 04:33 Absolute Nucleated RBC 0.1 /100WBC 01/12/25 04:33 Sodium 142 mmol/L (136-145) 01/12/25 04:33 Corrected Sodium 143 mmol/L (136-145) 01/12/25 04:33 Potassium 3.4 mmol/L (3.5-5.1) L 01/12/25 04:33 Chloride 102 mmol/L (98-107) 01/12/25 04:33 Carbon Dioxide 25.8 mmol/L (21-32) 01/12/25 04:33 BUN 19 mg/dL (7-18) H 01/12/25 04:33 Creatinine 1.51 mg/dL (0.70-1.30) H 01/12/25 04:33 Est GFR (MDRD) Af Amer 60 (>60) 01/12/25 04:33 Est GFR (MDRD) Non-Af 50 (>60) L 01/12/25 04:33 Glucose 122 mg/dL (65-99) H 01/12/25 04:33 POC Glucose (mg/dL) 202 mg/dL (65-99) H 01/11/25 15:38 Lactic Acid 1.2 mmol/L (0.4-2.0) 01/11/25 23:35 Calcium 8.2 mg/dL (8.5-10.1) L 01/12/25 04:33 Corrected Calcium TNP 01/12/25 04:33 Magnesium 1.6 mg/dL (2.0-2.9) L 01/12/25 04:33 Total Bilirubin 0.50 mg/dL (0.2-1.0) 01/12/25 04:33 AST 49 Units/L (15-37) H 01/12/25 04:33 ALT 19 Units/L (12-78) 01/12/25 04:33 Alkaline Phosphatase 75 Units/L (46-116) 01/12/25 04:33 Troponin I High Sens 16.1 ng/L (4.0-60.0) 01/11/25 21:44 B-Natriuretic Peptide 44.4 pg/mL (0-79) 01/11/25 15:38 Total Protein 7.8 g/dL (6.4-8.2) 01/12/25 04:33 Albumin 3.5 g/dL (3.4-5.0) 01/12/25 04:33 Globulin 4.3 g/dL (2.5-4.5) 01/12/25 04:33 Albumin/Globulin Ratio 0.8 Ratio (1.1-2.1) L 01/12/25 04:33 Specimen Type Clean catch urine 01/11/25 15:34 Urine Color Straw (YELLOW) 01/11/25 15:34 Urine Appearance Clear (CLEAR) 01/11/25 15:34 Urine pH 5.0 (5.0 - 8.0) 01/11/25 15:34 Ur Specific [place] 1.020 (1.000-1.030) 01/11/25 15:34 Urine Protein 2+ (NEGATIVE) 01/11/25 15:34 Urine Glucose (UA) Negative (NEGATIVE) 01/11/25 15:34 Urine Ketones 4+ (NEGATIVE) 01/11/25 15:34 Urine Blood Negative (NEGATIVE) 01/11/25 15:34 Urine Nitrite Negative (NEGATIVE) 01/11/25 15:34 Urine Bilirubin Negative (NEGATIVE) 01/11/25 15:34 Urine Urobilinogen Normal (NORMAL) 01/11/25 15:34 Ur Leukocyte Esterase Negative (NEGATIVE) 01/11/25 15:34 Urine RBC None seen /HPF (0-3) 01/11/25 15:34 Urine WBC 0-2 /HPF (0-5) 01/11/25 15:34 Ur Squamous Epith Cells Rare /HPF (NEGATIVE) 01/11/25 15:34 Urine Bacteria Negative /HPF (NEGATIVE) 01/11/25 15:34 Ur Culture Indicated? No/not indicated 01/11/25 15:34 Urine Opiates Screen Negative (NEG=<300) 01/11/25 15:34 Urine Methadone Screen Negative (NEG=<300) 01/11/25 15:34 Ur Barbiturates Screen Negative (NEG=<200) 01/11/25 15:34 Ur Phencyclidine Scrn Negative (NEG=<25) 01/11/25 15:34 Ur Amphetamines Screen Negative (NEG=<1000) 01/11/25 15:34 U Benzodiazepines Scrn Negative (NEG=<200) 01/11/25 15:34 Urine Cocaine Screen Negative (NEG=<300) 01/11/25 15:34 U Marijuana (THC) Screen Negative (NEG=<50) 01/11/25 15:34 Ethyl Alcohol mg/dL < 3.0 mg/dL (0-19.9) 01/11/25 15:38 Acetone, Semi-Quant Moderate (NEGATIVE) H 01/11/25 15:38 Review of Systems Constitutional: Weakness Eyes: No Symptoms Reported ENT: No Symptoms Reported Respiratory: No Symptoms Reported Cardiovascular: No Symptoms Reported Gastrointestinal: Nausea and Vomiting Genitourinary: No Symptoms Reported Musculoskeletal: No Symptoms Reported Skin: No Symptoms Reported Neurological: No Symptoms Reported Physical Exam Vital Signs: Vital Signs Temperature 98.4 F Temperature 98.4 F Pulse Rate 95 Pulse Rate 95 Pulse Rate 82 Pulse Rate 92 Respiratory Rate 21 Respiratory Rate 21 Respiratory Rate 19 Respiratory Rate 18 Blood Pressure 143/67 Blood Pressure 157/84 Blood Pressure 140/76 Blood Pressure 140/76 O2 Sat by Pulse Oximetry 96 O2 Sat by Pulse Oximetry 98 O2 Sat by Pulse Oximetry 98 O2 Sat by Pulse Oximetry 99 Oriented: Normal Respiratory: Clear Throughout Cardiovascular: Normal Auscultation: Bowel Sounds: Normal Palpation: Normal Tenderness: Normal Skin: Normal Musculoskeletal: Normal Psychiatric: Normal Mood Description: Calm Affect: Normal Speech Pattern: Clear and Appropriate Assessment/Plan (1) Acute kidney insufficiency: Status: Acute (2) Weakness: Status: Acute (3) Low magnesium level: Status: Acute (4) Acute dehydration: Status: Acute (5) Lactic acidosis: Status: Acute (6) Hypokalemia: Status: Acute (7) Alcoholism: Status: Chronic (8) Hypertension: Qualifiers: Hypertension type: primary hypertension Qualified Code(s): I10 - Essential (primary) hypertension Status: Chronic (9) Anemia: Qualifiers: Anemia type: iron deficiency Iron deficiency anemia type: inadequate dietary iron intake Qualified Code(s): D50.8 - Other iron deficiency anemias Status: Chronic (10) Acquired thrombocytopenia: Status: Chronic Review H&P Reviewed: Yes Patient was examined?: Yes
[2025-01-12] MEDS: ULTRAM PO PRN (17:39)
[2025-01-12] MEDS: CATAPRES TAB 0.1 MG PO ONE (18:00)
--- NOTE | 2025-01-12 18:23 | EKG ---
Test Reason : hypertensive protocol Blood Pressure : */* mmHG Vent. Rate : 75 BPM Atrial Rate : 75 BPM P-R Int : 156 ms QRS Dur : 76 ms QT Int : 388 ms P-R-T Axes : 70 16 32 degrees QTc Int : 433 ms Normal sinus rhythm Normal ECG When compared with ECG of 22-JUL-2024 17:42, Criteria for Septal infarct are no longer present Confirmed by Philippe Kunz MD ([id number]) on 01/12/2025 7:23:48 PM Referred By: Confirmed By: Philippe Kunz MD
[2025-01-12] MEDS: MAGNESIUM SULFATE 50% INJ VIAL ONE (19:03)
[2025-01-12] MEDS: NS 1,000 ML IV 1,000 ML ONE ×2 (19:03)
[2025-01-12] MEDS: CONSULT PHARMACY - POTASSIUM & MAGNESIUM XX SCH (19:05)
[2025-01-12] MEDS: APRESOLINE INJ 20 MG VIAL IVP ONE (20:24)
[2025-01-13] MEDS: CATAPRES TAB 0.1 MG PO ONE (04:21)
[2025-01-13] MEDS: CATAPRES TAB 0.1 MG ONE (04:30)
[2025-01-13 05:00] LABS: MEAN PLATELET VOLUME 9.3 fL (7.4-11.0); RED CELL DISTRIBUTION WIDTH 13.3 % (11.6-16.5)
[2025-01-13 05:17] LABS: CREATININE 1.07 mg/dL (0.70-1.30); eGFR NON BLACK RACES > 60 (>60)
[2025-01-13] MEDS ORDERED: CONSULT PHARMACY - POTASSIUM & MAGNESIUM XX SCH (07:00)
[2025-01-13 07:59] VITALS: RESP 18; TEMP 98.2
[2025-01-13 08:09] VITALS: BP 163/89; PULSE 86; O2SAT 95
[2025-01-13] MEDS: FOLIC ACID TAB 1 MG ONE (08:27)
[2025-01-13] MEDS: K-DUR TAB 20 MEQ PO SCH (08:33)
[2025-01-13] MEDS: MAG-OX TAB ONE (10:52)
[2025-01-13] MEDS: VITAMIN B-1 PO SCH (10:58)
--- NOTE | 2025-01-18 15:50 | W.DIS.FURT ---
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 present treatment and follow up plan. Pt is to keep follow up appointment as instructed and take medications as ordered. Prescriptions: No Action gabapentin 600 mg tablet 600 mg PO TID Qty: 270 3RF tizanidine 4 mg tablet 4 mg PO QPM PRN buprenorphine-naloxone 4-1 mg Film 1 film buccal TID folic acid 400 mcg tablet 0.4 mg PO QDAY thiamine mononitrate (vit B1) [Vitamin B-1 (mononitrate)] 100 mg tablet 100 mg PO QDAY Genvoya [phone] mg tablet 1 tab PO QDAY Follow ups/Referrals Follow ups/Referrals: [facility] [REFERRING, Unknown] - 01/20/25 10:00 am Instructions Instructions: Fatigue, Weakness: What to Know, [id number] Stand Alone Forms: Excuse From Work or School, Find Help Web Site, Post Hospital Follow Up Care Print Language: CUBAN
== END 2025-01-13 11:45 | disposition home or self-care (01) | DRG 700 ==
LOC: ER 14:19 → ICU 16:48
PROVIDERS: ADMIT Internal Medicine; ATTEND Internal Medicine
DX: E86.0 Dehydration; K21.9 Gastro-esophageal reflux disease without esophagitis; R73.09 Other abnormal glucose; R11.2 Nausea with vomiting, unspecified; R53.1 Weakness; R94.4 Abnormal results of kidney function studies; D69.6 Thrombocytopenia, unspecified; R79.89 Other specified abnormal findings of blood chemistry; R60.0 Localized edema; E83.42 Hypomagnesemia; E78.5 Hyperlipidemia, unspecified; D50.8 Other iron deficiency anemias; F10.20 Alcohol dependence, uncomplicated; I10 Essential (primary) hypertension; F41.8 Other specified anxiety disorders; E83.51 Hypocalcemia; F32.89 Other specified depressive episodes; E87.6 Hypokalemia; N28.9 Disorder of kidney and ureter, unspecified